=== PATIENT | female | born 1995 | race Caucasian/White ===

== ENCOUNTER 2016-11-14 16:01 | Emergency (ER) | payer BC, MEDICAID ==
[2016-11-14] MEDS ORDERED: METOCLOPRAMIDE HCL 10 MG TABLET PO ONE (16:28)
--- NOTE | 2016-11-14 16:28 | ER Document Report ---
ED Medical Screen (RME) - General Chief Complaint: Nausea/Vomiting Stated Complaint: NAUSEA AND VOMITING Time seen by provider: 16:26 Mode of Arrival: Ambulatory Information source: Patient Notes: 21 yo female presnts to ed for hyperemesis gravadarum TRAVEL OUTSIDE OF THE [place] IN LAST 30 DAYS: No - HPI Onset: Other - couple days much worse Onset/Duration: Constant Quality of pain: No pain Severity: None Pain Level: Denies Associated Symptoms: Nausea, Vomiting, Other - almost 20 weeks Exacerbated by: Food Relieved by: Denies Similar symptoms previously: Yes Recently seen / treated by doctor: Yes - Related Data Smoking: Non-smoker Frequency of alcohol use: None Drug Abuse: None Allergies/Adverse Reactions: No Known Allergies Allergy (Verified 08/26/16 08:17) Past Medical History - Social History Family history: Reviewed & Not Pertinent Pulmonary Medical History: Reports: Hx Bronchitis, Hx Pneumonia - Immunizations Hx Diphtheria, Pertussis, Tetanus Vaccination: Yes Physical Exam - Vital signs Vitals: Temp Pulse Resp BP Pulse Ox 97.9 F 98 18 119/68 99 11/14/16 16:11 11/14/16 16:11 11/14/16 16:11 11/14/16 16:11 11/14/16 16:11 Course - Vital Signs Vital signs: Temp Pulse Resp BP Pulse Ox 97.9 F 98 18 119/68 99 11/14/16 16:11 11/14/16 16:11 11/14/16 16:11 11/14/16 16:11 11/14/16 16:11
[2016-11-14 16:48] LABS: ABSOLUTE LYMPHOCYTES (AUTO) 2.3 10^3/uL (0.5-4.7); ABSOLUTE MONOCYTES (AUTO) 0.6 10^3/uL (0.1-1.4); ABSOLUTE NEUT (AUTO) 9.1 10^3/uL (1.7-8.2); BASOPHILS % (AUTO) 0.3 % (0-2); EOSINOPHILS % (AUTO) 0.2 % (0-6); HEMATOCRIT 39.2 % (36.0-47.0); HEMOGLOBIN 13.5 g/dL (12.0-15.5); HGB HCT DIFFERENCE 1.3; LYMPHOCYTES % (AUTO) 18.9 % (13-45); MEAN CORPUSCULAR HEMOGLOBIN 28.6 pg (27.0-33.4); MEAN CORPUSCULAR HGB CONC 34.3 g/dL (32.0-36.0); MEAN CORPUSCULAR VOLUME 83 fl (80-97); MONOCYTES % (AUTO) 5.2 % (3-13); RED CELL DISTRIBUTION WIDTH 13.9 % (11.5-14.0); SEGMENTED NEUTROPHILS % (AUTO) 75.4 % (42-78)
[2016-11-14 16:59] LABS: APPEARANCE,URINE CLOUDY; BILIRUBIN,URINE NEGATIVE (NEGATIVE); GLUCOSE, URINE NEGATIVE (NEGATIVE); KETONES,URINE 80 mg/dL (NEGATIVE); LEUKOCYTE ESTERASE,URINE MODERATE (NEGATIVE); NITRITE,URINE NEGATIVE (NEGATIVE); PROTEIN,URINE 30 mg/dL (NEGATIVE); URINE SPECIFIC GRAVITY 1.028; UROBILINOGEN,URINE NEGATIVE mg/dL (<2.0)
[2016-11-14 17:14] LABS: ALANINE AMINOTRANSFERASE 37 U/L (9-52); ALBUMIN 3.5 g/dL (3.5-5.0); ALKALINE PHOSPHATASE 60 U/L (38-126); ANION GAP 12 (5-19); ASPARTATE AMINO TRANSFERASE 21 U/L (14-36); BILIRUBIN,TOTAL 1.3 mg/dL (0.2-1.3); BLOOD UREA NITROGEN 8 mg/dL (7-20); CALCIUM 9.3 mg/dL (8.4-10.2); CARBON DIOXIDE 24 mmol/L (22-30); CHLORIDE 103 mmol/L (98-107); CREATININE RESULT 0.69 mg/dL (0.52-1.25); GLUCOSE 74 mg/dL (75-110); SODIUM 138.7 mmol/L (137-145); TOTAL PROTEIN 6.6 g/dL (6.3-8.2)
[2016-11-14] MEDS ORDERED: NORMAL SALINE 1000 ML 1,000 ML IV ONE (18:43)
--- NOTE | 2016-11-14 19:39 | ER Document Report ---
ED General - General Chief Complaint: Nausea/Vomiting Stated Complaint: NAUSEA AND VOMITING Mode of Arrival: Ambulatory Notes: Patient is a 21-year-old female, at 20 weeks who presented to the emergency department with concerns for dehydration in the setting of persistent vomiting. States that she's had frequent vomiting throughout her and has continued over the past several days. Notes that she's lost 6 pounds in the past one week so she was instructed to come to the emergency department by her [employer]. They she's been trying Reglan and Zofran without improvement of her nausea and vomiting. Nothing worsens or symptoms. States she has been able to tolerate fluids intermittently at home. She denies any focal abdominal pain. No diarrhea, chest pain or shortness of breath. No fever. States that the symptoms have been unchanged since approximately 12 weeks of . TRAVEL OUTSIDE OF THE [place] IN LAST 30 DAYS: No - Related Data Allergies/Adverse Reactions: No Known Allergies Allergy (Verified 08/26/16 08:17) Past Medical History - General Information source: Patient - Social History Smoking Status: Never Smoker Frequency of alcohol use: None Drug Abuse: None Lives with: Spouse/Significant other Family History: Reviewed & Not Pertinent Patient has suicidal ideation: No Patient has homicidal ideation: No Pulmonary Medical History: Reports: Hx Bronchitis, Hx Pneumonia - Immunizations Hx Diphtheria, Pertussis, Tetanus Vaccination: Yes Review of Systems - Review of Systems Notes: Constitutional: Negative for fever. HENT: Negative for sore throat. Eyes: Negative for visual changes. Cardiovascular: Negative for chest pain. Respiratory: Negative for shortness of breath. Gastrointestinal: Negative for abdominal pain, positive for vomiting Genitourinary: Negative for dysuria. Musculoskeletal: Negative for back pain. Skin: Negative for rash. Neurological: Negative for headaches, weakness or numbness. 10 point ROS negative except as marked above and in HPI. Physical Exam - Vital signs Vitals: Temp Pulse Resp BP Pulse Ox 97.9 F 98 18 119/68 99 11/14/16 16:11 11/14/16 16:11 11/14/16 16:11 11/14/16 16:11 11/14/16 16:11 Interpretation: Normal Notes: PHYSICAL EXAMINATION: GENERAL: Well-appearing, well-nourished and in no acute distress. HEAD: Atraumatic, normocephalic. EYES: Pupils equal round and reactive to light, extraocular movements intact, sclera anicteric, conjunctiva are normal. ENT: nares patent, oropharynx clear without exudates. Moist mucous membranes. NECK: Normal range of motion, supple without lymphadenopathy LUNGS: Breath sounds clear to auscultation bilaterally and equal. No wheezes rales or rhonchi. HEART: Regular rate and rhythm without murmurs ABDOMEN: Soft, gravid uterus, nontender, normoactive bowel sounds. No guarding , no rebound. No masses appreciated. EXTREMITIES: Normal range of motion, no pitting or edema. No cyanosis. NEUROLOGICAL: No focal neurological deficits. Moves all extremities spontaneously and on command. PSYCH: Normal mood, normal affect. SKIN: Warm, Dry, normal turgor, no rashes or lesions noted. Course - Re-evaluation Re-evalutation: 11/15/16 02:48 Patient presents with persistent vomiting during . Vitals at time of arrival unremarkable without tachycardia or hypotension. Laboratories reveal a normal creatinine and no evidence of significant dehydration. Patient was able to tolerate oral intake here in the emergency department. IV fluids were provided. Bedside ultrasound shows appropriate heart rate for gestational age with active movement. No vaginal bleeding or discharge. Based on abdominal exam, vitals and history I do not suspect an acute appendicitis, cholestasis of , acute cholecystitis, pancreatitis, or bowel obstruction. Patient will be started on a combination of doxylamine and vitamin B6. At this time will discharge with return precautions and follow-up recommendations. Verbal discharge instructions given a the bedside and opportunity for questions given. Medication warnings reviewed. Patient is in agreement with this plan and has verbalized understanding of return precautions and the need for primary care follow-up in the next 24-72 hours. - Vital Signs Vital signs: Temp Pulse Resp BP Pulse Ox 97.9 F 76 14 123/69 98 11/14/16 16:11 11/14/16 20:20 11/14/16 20:20 11/14/16 20:20 11/14/16 20:20 - Laboratory Result Diagrams: 11/14/16 16:25 11/14/16 16:25 Laboratory results interpreted by me: 11/14/16 11/14/16 11/14/16 16:25 16:25 16:25 WBC 12.0 H Absolute Neutrophils 9.1 H Glucose 74 L Serum HCG, Qual POSITIVE H Beta HCG, Quant Urine Protein Urine Ketones Ur Leukocyte Esterase 11/14/16 11/14/16 16:25 16:30 WBC Absolute Neutrophils Glucose Serum HCG, Qual Beta HCG, Quant 80566.00 H Urine Protein 30 H Urine Ketones 80 H Ur Leukocyte Esterase MODERATE H Discharge - Discharge Clinical Impression: Hyperemesis affecting , antepartum, Asymptomatic bacteriuria during Condition: Good Disposition: HOME, SELF-CARE Additional Instructions: You have been seen for vomiting during . You should continue to drink plenty of water and consider taking a solution such as Pedialyte if your having difficulty eating food. Please return if you become unable to drink any fluids for more than 12 hours, urinate less than twice a day, pass out, or have any other symptoms that are concerning to you. For nausea and vomiting during I recomment: Start with 10-12.5 mg of pyridoxine (vitamin B6) three times a day for 2 days. If not fully effective, Increase to 12.5 mg of pyridoxine four times a day for 2 days. If not fully effective, Increase to 25 mg of pyridoxine three times a day for 2 days. If not fully effective, Continue 25 mg pyridoxine 3 times a day, and add 12.5 mg of doxylamine before bedtime each day for 2 days. If not fully effective, Continue 25 mg pyridoxine 3 times a day, and take 12.5 mg of doxylamine twice a day. If not fully effective, Continue 25 mg pyridoxine 3 times a day, and take 12.5 mg of doxylamine three times a day. If not fully effective, Continue 25 mg pyridoxine 3 times a day, and 12.5 mg of doxylamine 3 times a day , while adding Emetrol, one to two tablespoons (15-30 cc) taken once or twice a day as needed. (Emetrol is an [id number] mixture of sugar syrups and phosphoric acid [phosphorylated carbohydrate solution]) that acts by soothing the actual wall of the gastrointestinal tract). If not fully effective, Consult with your doctor. Your urine also showed findings consistent with a urinary tract infection. Given he did not have symptoms this is categorized as asymptomatic bacteria in the urine but is treated during . You have answered on Keflex for the next 5 days. Please take as directed. Prescriptions: Cephalexin Monohydrate [Keflex 500 mg Capsule] 500 mg PO QID #20 capsule
[2016-11-14 20:22] VITALS: BP 123/69
== END 2016-11-14 20:22 | disposition home or self-care (01) ==
LOC: ER 16:01
DX: O21.0 Mild hyperemesis gravidarum (principal); O26.892 Other specified pregnancy related conditions, second trimester; R82.71 Bacteriuria; Z3A.20 20 weeks gestation of pregnancy
CPT/HCPCS: 99284; 96360; 36415; 84702; 84703; 85025; 80053; 81001; J7030

== ENCOUNTER 2017-02-06 20:41 | Outpatient (CLI) | payer BC, MEDICAID ==
[2017-02-06 21:14] LABS: APPEARANCE,URINE SLIGHTLY-CLOUDY; BILIRUBIN,URINE NEGATIVE (NEGATIVE); GLUCOSE, URINE NEGATIVE (NEGATIVE); KETONES,URINE TRACE mg/dL (NEGATIVE); LEUKOCYTE ESTERASE,URINE SMALL (NEGATIVE); NITRITE,URINE NEGATIVE (NEGATIVE); PROTEIN,URINE 30 mg/dL (NEGATIVE); URINE SPECIFIC GRAVITY 1.027; UROBILINOGEN,URINE NEGATIVE mg/dL (<2.0)
[2017-02-06 21:34] LABS: URINE BARBITURATES SCREEN NEGATIVE; URINE METHADONE SCREEN NEGATIVE; URINE OPIATES LOW NEGATIVE; URINE PHENCYCLIDINE SCREEN NEGATIVE
== END 2017-02-06 21:35 | disposition home or self-care (01) ==
LOC: LC 20:41
PROVIDERS: ATTEND Obstetrics & Gynecology
PROC: 4A1HXCZ Monitoring of Products of Conception, Cardiac Rate, External Approach (ICD-10-PCS; principal; 2017-02-06)
DX: O47.03 False labor before 37 completed weeks of gestation, third trimester (principal); Z3A.31 31 weeks gestation of pregnancy
CPT/HCPCS: 80307; 81001

== ENCOUNTER 2017-02-16 04:28 | Outpatient (CLI) | payer BC, MEDICAID ==
[2017-02-16] MEDS ORDERED: ONDANSETRON HCL INJ/PF 4 MG/2 ML SDV IV ONE (05:13)
[2017-02-16 05:16] LABS: APPEARANCE,URINE CLOUDY; BILIRUBIN,URINE NEGATIVE (NEGATIVE); GLUCOSE, URINE NEGATIVE (NEGATIVE); KETONES,URINE NEGATIVE (NEGATIVE); LEUKOCYTE ESTERASE,URINE MODERATE (NEGATIVE); NITRITE,URINE NEGATIVE (NEGATIVE); PROTEIN,URINE 30 mg/dL (NEGATIVE); URINE SPECIFIC GRAVITY 1.025; UROBILINOGEN,URINE NEGATIVE mg/dL (<2.0)
[2017-02-16] MEDS ORDERED: ONDANSETRON HCL INJ/PF 4 MG/2 ML SDV ONE (05:17)
[2017-02-16 05:41] LABS: ABSOLUTE LYMPHOCYTES (AUTO) 2.7 10^3/uL (0.5-4.7); ABSOLUTE MONOCYTES (AUTO) 0.8 10^3/uL (0.1-1.4); ABSOLUTE NEUT (AUTO) 7.6 10^3/uL (1.7-8.2); BASOPHILS % (AUTO) 0.4 % (0-2); EOSINOPHILS % (AUTO) 0.4 % (0-6); HEMATOCRIT 37.6 % (36.0-47.0); HEMOGLOBIN 12.9 g/dL (12.0-15.5); HGB HCT DIFFERENCE 1.1; MEAN CORPUSCULAR HEMOGLOBIN 29.1 pg (27.0-33.4); MEAN CORPUSCULAR HGB CONC 34.2 g/dL (32.0-36.0); MEAN CORPUSCULAR VOLUME 85 fl (80-97); MONOCYTES % (AUTO) 7.1 % (3-13); RED BLOOD COUNT 4.42 10^6/uL (3.72-5.28); RED CELL DISTRIBUTION WIDTH 13.2 % (11.5-14.0); SEGMENTED NEUTROPHILS % (AUTO) 68.1 % (42-78); WHITE BLOOD COUNT 11.1 10^3/uL (4.0-10.5)
[2017-02-16 05:41] LABS: URINE BARBITURATES SCREEN NEGATIVE; URINE METHADONE SCREEN NEGATIVE; URINE OPIATES LOW NEGATIVE; URINE PHENCYCLIDINE SCREEN NEGATIVE
[2017-02-16] MEDS ORDERED: ACETAMINOPHEN 325 MG TABLET ONE (05:43)
[2017-02-16] MEDS: RINGERS SOLUTION,LACTATED 1,000 ML IV PRN ×2 (05:46→06:38)
[2017-02-16 06:22] LABS: ALANINE AMINOTRANSFERASE 34 U/L (9-52); ALBUMIN 2.8 g/dL (3.5-5.0); ALKALINE PHOSPHATASE 131 U/L (38-126); AMYLASE 39 U/L (30-110); ANION GAP 9 (5-19); ASPARTATE AMINO TRANSFERASE 43 U/L (14-36); BILIRUBIN,DIRECT 0.3 mg/dL (0.0-0.4); BILIRUBIN,TOTAL 1.1 mg/dL (0.2-1.3); BLOOD UREA NITROGEN 7 mg/dL (7-20); CALCIUM 8.6 mg/dL (8.4-10.2); CARBON DIOXIDE 24 mmol/L (22-30); CHLORIDE 106 mmol/L (98-107); GLUCOSE 76 mg/dL (75-110); SODIUM 138.8 mmol/L (137-145); TOTAL PROTEIN 5.5 g/dL (6.3-8.2)
--- NOTE | 2017-02-16 08:26 | Non Stress Test Report ---
Non Stress Test Datetime Report Generated by CPN: 02/16/2017 08:26 DEMOGRAPHIC EGA NST: 32.5 INDICATION Indication for Study: Ordered by Provider URINE RESULTS Urine Protein, NST: Positive Urine Ketones - NST: Negative Urine Glucose - NST: Negative Urine Blood - NST: Negative MONITORING Monitor Explained: Monitor Explained; Test Explained; Patient Verbalized Understanding Time on Monitor: 02/16/2017 04:54 Time off Monitor: 02/16/2017 08:11 NST Duration: 197 NST INTERVENTIONS NST Interventions: PO Hydration Physician Notified NST: Dr. Cervantes BABY A: [id number] BABY A Movement : Present Contraction Frequency : x1 FHR Baseline : 145 Accelerations : 15X15 Decelerations : None Variability : Moderate 6-25bpm NST Review: Meets Criteria for Reactive NST NST Review and Verified By : Hedy Vaz RN NSNeris Results: Reactive NST REPORT Report Trigger: Send Report
--- NOTE | 2017-02-16 11:27 | L&D Discharge Summary ---
OB Discharge Summary Datetime Report Generated by CPN: 02/16/2017 11:27 DISCHARGE DIAGNOSIS Diagnosis/Symptoms: Other Diagnoses/Symptoms Other: Gallstones, Not in labor Gestation: 32.4 Number of Babies in Womb: 1 Parity: 0 DIET/ACTIVITY/RESTRICTIONS Diet: Regular Activity: Normal Activity TEACHING/INSTRUCTIONS/REFERRALS Instructions Given To: Patient Instructions Understood: Patient Verbalized Understanding; Support Person Verbalized Understanding Referrals: None Educational Materials- Other: Kick counts DISCHARGE INFORMATION Discharged AMA: No Discharge Date/Time: 02/16/2017 08:11 Discharged To: Home Discharge Provider Name: Dr. Cervantes Accompanied By: Spouse Discharge Method: Ambulatory Condition: Stable FOLLOW UP INFORMATION Follow Up With: [facility] Follow Up On: As Scheduled Follow Up Phone Number: [employer] [facility] - Comments: Discussed dehydration and signs and sypmtoms of when to return to office or hospital with patient and spouse. Both, patient and spouse, verbalized understanding. Patient discharged home due to false labor via ambulation in stable condition. GENERAL INSTR-CALL PROVIDER IF: Contractions: Contractions or cramps become more frequent than 8 in one hour or 4 in 20 minutes; Regular painful contractions every 5 minutes or less for one hour. Time your contractions from the beginning of one to the beginning of the next Pressure: Pressure in your vagina or lower abdomen that may feel like the baby is pushing down Period Like Cramps: Period-like cramps or low dull backache that may come and go Cramps/Diarrhea: Abdominal cramps that may be accompanied by diarrhea Gush of Fluid/Blood: Gush of fluid or blood from your vagina (it is normal to have spotting after vaginal exam or intercourse) Vaginal Discharge: Change in the type or amount of vaginal discharge Decreased Movement: Your baby is not moving as much as usual- 4 movements in 1 hour after drinking and resting on side Temperature: Temperature greater than 100.0(F) orally
== END 2017-02-16 08:27 | disposition home or self-care (01) ==
LOC: LC 04:28
PROVIDERS: ATTEND Student in an Organized Health Care Education/Training Program
PROC: 4A1HXCZ Monitoring of Products of Conception, Cardiac Rate, External Approach (ICD-10-PCS; principal; 2017-02-16)
DX: O99.613 Diseases of the digestive system complicating pregnancy, third trimester (principal); K80.80 Other cholelithiasis without obstruction; Z3A.32 32 weeks gestation of pregnancy
CPT/HCPCS: 59025; 36415; 82150; 83690; 85025; 80053; 81001; 80307; J2405

== ENCOUNTER 2017-02-17 11:39 | Outpatient (CLI) | payer BC, MEDICAID ==
[2017-02-17 14:14] LABS: ABSOLUTE LYMPHOCYTES (AUTO) 2.1 10^3/uL (0.5-4.7); ABSOLUTE MONOCYTES (AUTO) 0.7 10^3/uL (0.1-1.4); ABSOLUTE NEUT (AUTO) 5.9 10^3/uL (1.7-8.2); BASOPHILS % (AUTO) 0.3 % (0-2); EOSINOPHILS % (AUTO) 0.3 % (0-6); HEMATOCRIT 36.9 % (36.0-47.0); HEMOGLOBIN 12.6 g/dL (12.0-15.5); HGB HCT DIFFERENCE 0.9; LYMPHOCYTES % (AUTO) 24.1 % (13-45); MEAN CORPUSCULAR HEMOGLOBIN 29.2 pg (27.0-33.4); MEAN CORPUSCULAR HGB CONC 34.2 g/dL (32.0-36.0); MEAN CORPUSCULAR VOLUME 85 fl (80-97); MONOCYTES % (AUTO) 8.2 % (3-13); RED BLOOD COUNT 4.31 10^6/uL (3.72-5.28); RED CELL DISTRIBUTION WIDTH 13.2 % (11.5-14.0); SEGMENTED NEUTROPHILS % (AUTO) 67.1 % (42-78); WHITE BLOOD COUNT 8.9 10^3/uL (4.0-10.5)
[2017-02-17 14:22] LABS: APPEARANCE,URINE CLOUDY; BILIRUBIN,URINE SMALL (NEGATIVE); GLUCOSE, URINE NEGATIVE (NEGATIVE); KETONES,URINE TRACE mg/dL (NEGATIVE); LEUKOCYTE ESTERASE,URINE MODERATE (NEGATIVE); NITRITE,URINE NEGATIVE (NEGATIVE); PROTEIN,URINE 100 mg/dL (NEGATIVE); URINE SPECIFIC GRAVITY 1.033
[2017-02-17 14:22] LABS: ALANINE AMINOTRANSFERASE 26 U/L (9-52); ALBUMIN 2.8 g/dL (3.5-5.0); ALKALINE PHOSPHATASE 138 U/L (38-126); ANION GAP 9 (5-19); ASPARTATE AMINO TRANSFERASE 19 U/L (14-36); BILIRUBIN,DIRECT 0.1 mg/dL (0.0-0.4); BILIRUBIN,TOTAL 0.9 mg/dL (0.2-1.3); BLOOD UREA NITROGEN 6 mg/dL (7-20); CALCIUM 8.3 mg/dL (8.4-10.2); CARBON DIOXIDE 24 mmol/L (22-30); CHLORIDE 106 mmol/L (98-107); CREATININE RESULT 0.62 mg/dL (0.52-1.25); GLUCOSE 64 mg/dL (75-110); LDH 414 U/L (313-618); POTASSIUM 4.1 mmol/L (3.6-5.0); SODIUM 138.9 mmol/L (137-145); TOTAL PROTEIN 5.2 g/dL (6.3-8.2); URIC ACID 5.8 mg/dL (2.5-6.2)
[2017-02-17 14:35] LABS: URINE BARBITURATES SCREEN NEGATIVE; URINE METHADONE SCREEN NEGATIVE; URINE OPIATES LOW NEGATIVE; URINE PHENCYCLIDINE SCREEN NEGATIVE
--- NOTE | 2017-02-17 14:55 | Non Stress Test Report ---
Non Stress Test Datetime Report Generated by CPN: 02/17/2017 14:55 DEMOGRAPHIC EGA NST: 32.6 INDICATION Indication for Study: Ordered by Provider MONITORING Monitor Explained: Monitor Explained; Test Explained; Patient Verbalized Understanding Time on Monitor: 02/17/2017 12:45 Time off Monitor: 02/17/2017 14:30 NST Duration: 105 NST INTERVENTIONS NST Interventions: PO Hydration; Reposition Patient Physician Notified NST: H. Junior, CNM BABY A Movement : Present Contraction Frequency : 0 FHR Baseline : 145 Accelerations : 15X15 Decelerations : None Variability : Moderate 6-25bpm NST Review: Meets Criteria for Reactive NST NST Review and Verified By : SCOTT OLIVEIRA RN NST Results: Reactive NST REPORT Report Trigger: Send Report
--- NOTE | 2017-02-17 17:59 | L&D Discharge Summary ---
OB Discharge Summary Datetime Report Generated by CPN: 02/17/2017 17:59 DISCHARGE DIAGNOSIS Diagnosis/Symptoms: Reassuring Surveillance - Annotate Details; Pre-Eclampsia Diagnoses/Symptoms Other: Not in Labor - pre-eclamptic labs WNL Gestation: 32.5 Number of Babies in Womb: 1 Parity: 0 DIET/ACTIVITY/RESTRICTIONS Diet: Regular Activity: Normal Activity TEACHING/INSTRUCTIONS/REFERRALS Instructions Given To: Pt Instructions Understood: Patient Verbalized Understanding Referrals: None Educational Materials- Other: Dehydration in DISCHARGE INFORMATION Discharged AMA: No Discharge Date/Time: 02/17/2017 14:55 Discharged To: Home Discharge Provider Name: Hedy Pacheco CNM Accompanied By: Self Discharge Method: Ambulatory Condition: Stable FOLLOW UP INFORMATION Follow Up With: [facility] Follow Up On: As Scheduled Follow Up Phone Number: [facility] - Comments: Pt encouraged to eat small meals throughout the day when feeling better and to increase her fluid intake. GENERAL INSTR-CALL PROVIDER IF: Contractions: Contractions or cramps become more frequent than 8 in one hour or 4 in 20 minutes; Regular painful contractions every 5 minutes or less for one hour. Time your contractions from the beginning of one to the beginning of the next Pressure: Pressure in your vagina or lower abdomen that may feel like the baby is pushing down Period Like Cramps: Period-like cramps or low dull backache that may come and go Cramps/Diarrhea: Abdominal cramps that may be accompanied by diarrhea Gush of Fluid/Blood: Gush of fluid or blood from your vagina (it is normal to have spotting after vaginal exam or intercourse) Vaginal Discharge: Change in the type or amount of vaginal discharge Decreased Movement: Your baby is not moving as much as usual- 4 movements in 1 hour after drinking and resting on side Temperature: Temperature greater than 100.0(F) orally
--- NOTE | 2017-02-19 22:47 | Antepartum Discharge Summary ---
Antepartum DC Datetime Report Generated by CPN: 02/19/2017 22:45 Diet: Regular (02/17/2017 14:54:Martha Ramos RN) Activity: Normal Activity (02/17/2017 14:54:Martha Ramos RN) Instructions Given To: Pt (02/17/2017 14:54:Martha Ramos RN) Instructions Understood: Patient Verbalized Understanding (02/17/2017 14:54:Martha Ramos RN) Referrals: None (02/17/2017 14:54:Martha Ramos RN) Educational Materials- Other: Dehydration in (02/17/2017 14:54:Martha Ramos RN) Discharged AMA: No (02/17/2017 14:54:Martha Ramos RN) Discharge Date/Time: 02/17/2017 14:55 (02/17/2017 14:54:Martha Ramos RN) Discharged To: Home (02/17/2017 14:54:Martha Ramos RN) Discharge Provider Name: Hedy Pacheco CNM (02/17/2017 14:54:Martha Ramos RN) Accompanied By: Self (02/17/2017 14:54:Martha Ramos RN) Discharge Method: Ambulatory (02/17/2017 14:54:Martha Ramos RN) Condition: Stable (02/17/2017 14:54:Martha Ramos RN) Follow Up With: [facility] (02/17/2017 14:54:Martha Ramos RN) Follow Up On: As Scheduled (02/17/2017 14:54:Martha Ramos RN) Follow Up Phone Number: [facility] - (02/17/2017 14:54:Martha Ramos RN) Comments: Pt encouraged to eat small meals throughout the day when feeling better and to increase her fluid intake. (02/17/2017 14:54:Martha Ramos RN) Pressure: Pressure in your vagina or lower abdomen that may feel like the baby is pushing down (02/17/2017 14:54:Martha Ramos RN) Period Like Cramps: Period-like cramps or low dull backache that may come and go (02/17/2017 14:54:Martha Ramos RN) Cramps/Diarrhea: Abdominal cramps that may be accompanied by diarrhea (02/17/2017 14:54:Martha Ramos RN) Gush of Fluid/Blood: Gush of fluid or blood from your vagina (it is normal to have spotting after vaginal exam or intercourse) (02/17/2017 14:54:Martha Ramos RN) Vaginal Discharge: Change in the type or amount of vaginal discharge (02/17/2017 14:54:Martha Ramos RN) Decreased Movement: Your baby is not moving as much as usual- 4 movements in 1 hour after drinking and resting on side (02/17/2017 14:54:Martha Ramos RN) Temperature: Temperature greater than 100.0(F) orally (02/17/2017 14:54:Martha Ramos RN) Hypertension Signs/Symptoms: Severe headache which is not relieved 30 minutes after taking Tylenol(Acetaminophen); Blurry vision or spots before your eyes; Severe heartburn or pain on the upper right side of your abdomen that is not relieved by an antacid; Increased swelling in your face, hands or feet (02/17/2017 14:54:Martha Ramos RN) Urinary Output: Decreased urinary output or dark colored urine (02/17/2017 14:54:Martha Ramos RN)
--- NOTE | 2017-02-19 22:47 | L&D Discharge Summary ---
OB Discharge Summary Datetime Report Generated by CPN: 02/19/2017 22:45 DISCHARGE DIAGNOSIS Diagnosis/Symptoms: Reassuring Surveillance - Annotate Details; Pre-Eclampsia Diagnoses/Symptoms Other: Not in Labor - pre-eclamptic labs WNL Gestation: 32.6 Number of Babies in Womb: 1 Parity: 0 DIET/ACTIVITY/RESTRICTIONS Diet: Regular Activity: Normal Activity TEACHING/INSTRUCTIONS/REFERRALS Instructions Given To: Pt Instructions Understood: Patient Verbalized Understanding Referrals: None Educational Materials- Other: Dehydration in DISCHARGE INFORMATION Discharged AMA: No Discharge Date/Time: 02/17/2017 14:55 Discharged To: Home Discharge Provider Name: Hedy Pacheco CNM Accompanied By: Self Discharge Method: Ambulatory Condition: Stable FOLLOW UP INFORMATION Follow Up With: [facility] Follow Up On: As Scheduled Follow Up Phone Number: [facility] - Comments: Pt encouraged to eat small meals throughout the day when feeling better and to increase her fluid intake. GENERAL INSTR-CALL PROVIDER IF: Contractions: Contractions or cramps become more frequent than 8 in one hour or 4 in 20 minutes; Regular painful contractions every 5 minutes or less for one hour. Time your contractions from the beginning of one to the beginning of the next Pressure: Pressure in your vagina or lower abdomen that may feel like the baby is pushing down Period Like Cramps: Period-like cramps or low dull backache that may come and go Cramps/Diarrhea: Abdominal cramps that may be accompanied by diarrhea Gush of Fluid/Blood: Gush of fluid or blood from your vagina (it is normal to have spotting after vaginal exam or intercourse) Vaginal Discharge: Change in the type or amount of vaginal discharge Decreased Movement: Your baby is not moving as much as usual- 4 movements in 1 hour after drinking and resting on side Temperature: Temperature greater than 100.0(F) orally
--- NOTE | 2017-02-19 22:47 | L&D Current Admission ---
Current Admit Datetime Report Generated by CPN: 02/19/2017 22:45 ADMISSION INFORMATION Chief Complaint: Pt sent for pre-eclamptic w/u (02/17/2017 12:52:Martha Ramos RN) Chief Complaint: Epigastric Pain; Nausea; Vomiting; Other (Annotations: Gallbladder pain, heartburn) (02/16/2017 04:55:Jennifer Dolan RN) Chief Complaint: back and abdominal pain swelling (02/06/2017 21:01:Dionne Orr)
--- NOTE | 2017-02-19 22:47 | L&D General Admission ---
General Admit Datetime Report Generated by CPN: 02/19/2017 22:45 INFORMATION Patient Age: 21 (08/28/2016 17:37:QS system process) EDC: 04/08/2017 00:00 (02/06/2017 20:46:Crystal Mani, RN) : 1 (02/06/2017 20:46:Crystal Mani, RN) Para: 0 (02/06/2017 20:46:Crystal Mani, RN) Baby, Number in Womb: 1 (02/06/2017 20:46:Pearl Irizarry RN) CARE Primary Cuff Presser: [facility] (02/06/2017 20:46:Sharri Singleton RN) Adequate Care: Yes (02/06/2017 20:46:Sharri Singleton RN) Prepregnancy Weight (lb): 280 (02/06/2017 20:46:Martha Ramos RN) Prepregnancy Weight (kg): 127.3 (02/06/2017 20:46:QS system process) Height (in): 70 (02/06/2017 20:53:QS system process) Height (in): 71 (08/31/2016 05:53:QS system process) Height (in): 71 (08/30/2016 07:39:QS system process) Height (in): 71 (08/29/2016 10:52:QS system process) Height (in): 71 (08/29/2016 07:48:QS system process) Height (in): 71 (08/28/2016 18:04:QS system process) ALLERGIES Medication Allergy: No (02/06/2017 20:46:Sharri Singleton RN) Medication Allergies: No Known Allergies (02/16/2017) (02/16/2017 06:01:QS system process) Medication Allergies: No Known Allergies (08/26/2016) (08/28/2016 17:37:QS system process) Latex Allergy: No Latex Allergies (02/06/2017 20:46:Dionne Orr) Food Allergies: none (02/06/2017 20:46:Dionne Orr) Environmental Allergies: none (02/06/2017 20:46:Dionne Orr) COMMUNICATION Primary Language: Polish (02/06/2017 20:46:Crystal Whittemore, RN) DEMOGRAPHICS Address: [address] [place] [id number] (08/28/2016 17:37:QS system process) Zipcode: [address] (08/28/2016 17:37:QS system process) Home (08/28/2016 17:37:QS system process) Work (02/06/2017 20:42:QS system process) Work (08/28/2016 17:37:QS system process) SSN: [id number] (08/28/2016 17:37:QS system process) Next of Kin Name: KAREN GARVIN (08/28/2016 17:37:QS system process) Next of Kin (08/28/2016 17:37:QS system process) Next of Kin Relationship: MO (08/28/2016 17:37:QS system process) Date of : 1995 (08/28/2016 17:37:QS system process) Marital Status: (08/28/2016 17:37:QS system process) Sex: Female (08/28/2016 17:37:QS system process) Race: (08/28/2016 17:37:QS system process) Ethnicity: Non- or (08/28/2016 17:37:QS system process) Latter-Day: Zoroastrian (08/28/2016 17:37:QS system process) DRUG AND ALCOHOL USE Alcohol: No (02/06/2017 20:46:Dionne Orr) Cigarettes: Never Smoker. [id number] (02/06/2017 20:46:Dionne Orr) Marijuana: No (02/06/2017 20:46:Jennifer Dolan RN) Cocaine: No (02/06/2017 20:46:Dionne Orr) Other Illicit Drugs: No (02/06/2017 20:46:Dionne Orr) VACCINE HISTORY Influenza Vaccine: Yes (02/06/2017 20:46:Dionne Orr) Influenza Date: 2015 (02/06/2017 20:46:Dionne Orr) Tdap Vaccine: Yes (02/06/2017 20:46:Dionne Orr) Tdap Date: 2015 (02/06/2017 20:46:Dionne Orr) Feeding Preference: Breast (02/06/2017 20:46:Dionne Orr) Tubal Ligation: No (02/06/2017 20:46:Dionne Orr) Tubal Authorization Signed: N/A (02/06/2017 20:46:Dionne Orr) Consent: N/A (02/06/2017 20:46:Dionne Orr) Consent Signed: N/A (02/06/2017 20:46:Dionne Orr) Pain Management Plans: Natural; Epidural (02/06/2017 20:46:Dionne Orr) Plans for Labor and Delivery: None (02/06/2017 20:46:Dionne Orr) Support Person: Babak (02/06/2017 20:46:Dionne Orr) Support Person Relationship: (02/06/2017 20:46:Dionne Orr) Cultural/Spritual Practice: No (02/06/2017 20:46:Dionne Orr) Spir/Cult Dietary Needs: No (02/06/2017 20:46:Dionne Orr) LIVING SITUATION/DISCHARGE PLAN Living Arrangements: House (02/06/2017 20:46:Dionne Orr) Adequate Access to:: Electric; Heat; Refrigeration; Plumbing/Running water; Phone; Transportation (02/06/2017 20:46:Dionne Orr) WIC Program: No (02/06/2017 20:46:Dionne Orr) Discharge Portfolio Consultant Person: hugh (02/06/2017 20:46:Dionne Orr) Person to Help after Discharge: hugh (02/06/2017 20:46:Dionne Orr) Currently Using Commun Resources: Yes (02/06/2017 20:46:Dionne Orr) Specify Current Resource Used: medicaid (02/06/2017 20:46:Dionne Orr) Car Seat for Discharge: Yes (02/06/2017 20:46:Dionne Orr) Adoption Requested: No (02/06/2017 20:46:Dionne Orr) Pt Contact w/infant Post : N/A (02/06/2017 20:46:Dionne Orr) LABS Blood Type: O Positive (02/06/2017 20:46:Sharri Singleton RN) Antibody Screen: Negative (02/06/2017 20:46:Sharri Singleton RN) Hemoglobin: 12.6 (02/17/2017 13:28:QS system process) Hemoglobin: 12.9 (02/16/2017 05:22:QS system process) Hemoglobin: 13.8 (01/21/2017 23:35:QS system process) Hemoglobin: 13.5 (11/14/2016 16:25:QS system process) Hemoglobin: 13.2 (10/07/2016 20:25:QS system process) Hemoglobin: 13.3 (08/28/2016 18:40:QS system process) Hematocrit: 36.9 (02/17/2017 13:28:QS system process) Hematocrit: 37.6 (02/16/2017 05:22:QS system process) Hematocrit: 40.9 (01/21/2017 23:35:QS system process) Hematocrit: 39.2 (11/14/2016 16:25:QS system process) Hematocrit: 38.0 (10/07/2016 20:25:QS system process) Hematocrit: 38.1 (08/28/2016 18:40:QS system process) MCV: 85 (02/17/2017 13:28:QS system process) MCV: 85 (02/16/2017 05:22:QS system process) MCV: 85 (01/21/2017 23:35:QS system process) MCV: 83 (11/14/2016 16:25:QS system process) MCV: 83 (10/07/2016 20:25:QS system process) MCV: 82 (08/28/2016 18:40:QS system process) Gonorrhea: Negative (02/06/2017 20:46:Sharri Singleton RN) Chlamydia: Negative (02/06/2017 20:46:Sharri Singleton RN) RPR/VDRL: Nonreactive (02/06/2017 20:46:Sharri Singleton RN) HIV Exposure Test: Negative (02/06/2017 20:46:Sharri Singleton RN) Hepatitis B: Negative (02/06/2017 20:46:Sharri Singleton RN) Rubella: Non-Immune (02/06/2017 20:46:Melinda Corona RN) OB/PREVIOUS HISTORY Current Procedures: Ultrasound (02/06/2017 20:46:Dionne Orr) History of Previous : No (02/06/2017 20:46:Dionne Orr) History of Gestational Diabetes: No (02/06/2017 20:46:Dionne Orr) History of PIH: No (02/06/2017 20:46:Dionne Orr) History of Incompetent Cervix: No (02/06/2017 20:46:Dionne Orr) History of Placenta Previa/Abrup: No (02/06/2017 20:46:Dionne Orr) History of Macrosomia: No (02/06/2017 20:46:Dionne Orr) History of IUGR: No (02/06/2017 20:46:Dionne Orr) History of Hemorrhage: No (02/06/2017 20:46:Dionne Orr) History of Loss/Stillborn: No (02/06/2017 20:46:Dionne Orr) History of : No (02/06/2017 20:46:Dionne Orr) History of D (Rh) Sensitization: No (02/06/2017 20:46:Dionne Orr) History Recurrent Loss/Stillborn: No (02/06/2017 20:46:Dionne Orr) History Depression/PP Depression: No (02/06/2017 20:46:Dionne Orr) History of Uterine Anomaly/ERNESTINE: No (02/06/2017 20:46:Dionne Orr) History of Infertility: No (02/06/2017 20:46:Dionne Orr) History of ART Treatment: No (02/06/2017 20:46:Dionne Orr) History of ERNESTINE: No (02/06/2017 20:46:Dionne Orr) Comments Obstetrical History: 2017 current (hyper emesis, gallbladder issues) (02/06/2017 20:46:Jennifer Dolan RN) MEDICAL HISTORY Med Hx Diabetes: No (02/06/2017 20:46:Dionne Orr) Med Hx Hypertension: No (02/06/2017 20:46:Dionne Orr) Med Hx Heart Disease: No (02/06/2017 20:46:Dionne Orr) Med Hx Autoimmune Disorder: No (02/06/2017 20:46:Dionne Orr) Med Hx Kidney Disease/UTI: No (02/06/2017 20:46:Dionne Orr) Med Hx Neurologic/Epilepsy: No (02/06/2017 20:46:Dionne Orr) Med Hx Psychiatric Disorders: No (02/06/2017 20:46:Dionne Orr) Med Hx Hepatitis/Liver Disease: No (02/06/2017 20:46:Dionne Orr) Med Hx Varicosities/Phlebitis: No (02/06/2017 20:46:Dionne Orr) Med Hx Thyroid Dysfunction: No (02/06/2017 20:46:Dionne Orr) Med Hx Trauma/Violence: No (02/06/2017 20:46:Dionne Orr) Med Hx Blood Transfusion: No (02/06/2017 20:46:Dionne Orr) Med Hx Pulmonary (Asthma,TB): No (02/06/2017 20:46:Dionne Orr) Med Hx Breast: No (02/06/2017 20:46:Dionne Orr) Med Hx CUTTER GRINDER Surgery: No (02/06/2017 20:46:Dionne Orr) Med Hx Hospitalization/Surgery: No (02/06/2017 20:46:Dionne Orr) Med Hx Anesthetic Complications: No (02/06/2017 20:46:Dionne Orr) Med Hx Abnormal Pap Smear: No (02/06/2017 20:46:Dionne Orr) Other Medical Diseases: No (02/06/2017 20:46:Dionne Orr) Med Hx Significant Family Hx: No (02/06/2017 20:46:Dionne Orr) INFECTIOUS HISTORY Inf Hx Gonorrhea: No (02/06/2017 20:46:Dionne Orr) Inf Hx Chlamydia: No (02/06/2017 20:46:Dionne Orr) Inf Hx Syphilis: No (02/06/2017 20:46:Dionne Orr) Inf Hx HIV/AIDS: No (02/06/2017 20:46:Dionne Orr) Inf Hx Human Papilloma Virus: No (02/06/2017 20:46:Dionne Orr) Inf Hx Pt/Partner Genital Herpes: No (02/06/2017 20:46:Dionne Orr) Inf Hx Tuberculosis/Exposure: No (02/06/2017 20:46:Dionne Orr) Inf Hx Hepatitis B,C: No (02/06/2017 20:46:Dionne Orr) Inf Hx Rash or Viral Illness: No (02/06/2017 20:46:Dionne Orr) GENETIC HISTORY Gen Hx Age >=35 at CORY: No (02/06/2017 20:46:Dionne Orr) Gen Hx Thalassemia: No (02/06/2017 20:46:Dionne Orr) Gen Hx Congenital Heart Defect: No (02/06/2017 20:46:Dionne Orr) Gen Hx Neural Tube Defect: No (02/06/2017 20:46:Dionne Orr) Gen Hx Down's Syndrome: No (02/06/2017 20:46:Dionne Orr) Gen Hx Kris-Sachs: No (02/06/2017 20:46:Dionne Orr) Gen Hx Lilly: No (02/06/2017 20:46:Dionne Orr) Gen Hx Familial Dysautonomia: No (02/06/2017 20:46:Dionne Orr) Gen Hx Sickle Cell Disease/Trait: No (02/06/2017 20:46:Dionne Orr) Gen Hx Hemophilia/Blood Disorder: No (02/06/2017 20:46:Dionne Orr) Gen Hx Muscular Dystrophy: No (02/06/2017 20:46:Dionne Orr) Gen Hx Cystic Fibrosis: No (02/06/2017 20:46:Dionne Orr) Gen Hx Huntingtons Chorea: No (02/06/2017 20:46:Dionne Orr) Gen Hx Mental Retardation/Autism: No (02/06/2017 20:46:Dionne Orr) Gen Hx Tested for Fragile X: No (02/06/2017 20:46:Dionne Orr) Gen Hx Other Inher/Chromosomal: No (02/06/2017 20:46:Dionne Orr) Gen Hx Maternal Metabolic DO: No (02/06/2017 20:46:Dionne Orr) Gen Hx Pt Father or FOB Defect: No (02/06/2017 20:46:Dionne Orr) Gen Hx Other Genetic History: No (02/06/2017 20:46:Dionne Orr) Gen Hx Drugs/Meds since LMP: Yes (02/06/2017 20:46:Jennifer Dolan RN) Gen Hx Medications: vitamins, diclegis, (02/06/2017 20:46:Jennifer Dolan RN)
--- NOTE | 2017-02-20 06:30 | Non Stress Test Report ---
Non Stress Test Datetime Report Generated by CPN: 02/20/2017 06:30 DEMOGRAPHIC Test Number: 3 EGA NST: 33.2 INDICATION Indication for Study: Ordered by Provider MONITORING Monitor Explained: Monitor Explained; Test Explained; Patient Verbalized Understanding Time on Monitor: 02/20/2017 03:58 Time off Monitor: 02/20/2017 05:11 NST Duration: 73 NST INTERVENTIONS NST Interventions: PO Hydration; Reposition Patient Physician Notified NST: Dr. Phill BABY A Movement : Present Contraction Frequency : occasional FHR Baseline : 145 Accelerations : 15X15 Variability : Moderate 6-25bpm NST Review: Meets Criteria for Reactive NST NST Review and Verified By : JOE Lyons NST Results: Reactive NST REPORT Report Trigger: Send Report
== END 2017-02-17 14:59 | disposition home or self-care (01) ==
LOC: LC 11:39
PROVIDERS: ATTEND Obstetrics & Gynecology
PROC: 4A1HXCZ Monitoring of Products of Conception, Cardiac Rate, External Approach (ICD-10-PCS; principal; 2017-02-17)
DX: Z34.93 Encounter for supervision of normal pregnancy, unspecified, third trimester (principal); Z36 Encounter for antenatal screening of mother; Z3A.33 33 weeks gestation of pregnancy
CPT/HCPCS: 36415; 59025; 80053; 80307; 81001; 83615; 84550; 85025

== ENCOUNTER 2017-02-20 06:41 | Outpatient (CLI) | payer BC, MEDICAID ==
--- NOTE | 2017-02-20 08:44 | L&D Discharge Summary ---
OB Discharge Summary Datetime Report Generated by CPN: 02/20/2017 08:44 DISCHARGE DIAGNOSIS Diagnosis/Symptoms: False Labor Diagnoses/Symptoms Other: Not in Labor - pre-eclamptic labs WNL Gestation: 32.6 Number of Babies in Womb: 1 Parity: 0 DIET/ACTIVITY/RESTRICTIONS Diet: Regular Diet Restrictions: No intercourse until after f/u with [facility] Activity: Normal Activity Activity Restrictions: No Sexual Activity TEACHING/INSTRUCTIONS/REFERRALS Instructions Given To: Patient Instructions Understood: Patient Verbalized Understanding Referrals: None Educational Materials- Other: Kick counts and PTL signs care notes given. DISCHARGE INFORMATION Discharged AMA: No Discharge Date/Time: 02/20/2017 06:23 Discharged To: Home Discharge Provider Name: Dr. Pollock Accompanied By: FOB Discharge Method: Wheelchair Condition: Stable FOLLOW UP INFORMATION Follow Up With: [facility] Follow Up On: 1 Week Follow Up Phone Number: [facility] - Comments: Pt encouraged to eat small meals throughout the day when feeling better and to increase her fluid intake. GENERAL INSTR-CALL PROVIDER IF: Contractions: Contractions or cramps become more frequent than 8 in one hour or 4 in 20 minutes; Regular painful contractions every 5 minutes or less for one hour. Time your contractions from the beginning of one to the beginning of the next Pressure: Pressure in your vagina or lower abdomen that may feel like the baby is pushing down Period Like Cramps: Period-like cramps or low dull backache that may come and go Cramps/Diarrhea: Abdominal cramps that may be accompanied by diarrhea Gush of Fluid/Blood: Gush of fluid or blood from your vagina (it is normal to have spotting after vaginal exam or intercourse) Vaginal Discharge: Change in the type or amount of vaginal discharge Decreased Movement: Your baby is not moving as much as usual- 4 movements in 1 hour after drinking and resting on side Temperature: Temperature greater than 100.0(F) orally
--- NOTE | 2017-02-20 10:46 | L&D Admission Assessment ---
LD ADM ASMT Datetime Report Generated by CPN: 02/20/2017 10:45 Assessment Type: Triage (02/20/2017 03:59:Agnieszka Treadwell RN) Weight (lb): 255 (02/20/2017 06:41:QS system process) Weight (kg): 115.9 (02/20/2017 06:41:QS system process) Total Wt Gain (lb): -25 (02/20/2017 06:41:QS system process) Wt Gain (kg): -11.3 (02/20/2017 06:41:QS system process) BMI: 36.6 (02/20/2017 06:41:QS system process) Frequency (min): x1 (02/20/2017 05:11:Agnieszka Treadwell RN) Frequency (min): x3 (02/20/2017 05:00:Agnieszka Treadwell RN) Frequency (min): x3 (02/20/2017 04:30:Agnieszka Treadwell RN) Duration (sec): 70 (02/20/2017 05:11:Agnieszka Beyertibglory RN) Duration (sec): 30-60 (02/20/2017 05:00:Agnieszka Treadwell RN) Duration (sec): 40-50 (02/20/2017 04:30:Agnieszka Treadwell RN) Quality: Mild (02/20/2017 05:11:Agnieszka Treadwell RN) Quality: Mild (02/20/2017 05:00:Agnieszka Treadwell RN) Quality: Mild (02/20/2017 04:30:Agnieszka Treadwell RN) Resting Tone [place]: Relaxed (02/20/2017 05:11:Agnieszka Treadwell RN) Resting Tone [place]: Relaxed (02/20/2017 05:00:Agnieszka Treadwell RN) Resting Tone [place]: Relaxed (02/20/2017 04:30:Agnieszka Treadwell RN) Level of Consciousness: Fully Conscious (02/20/2017 03:59:Agnieszka Treadwell RN) Headache: Denies (02/20/2017 03:59:Agnieszka Treadwell RN) Dizziness: No (02/20/2017 03:59:Agnieszka Treadwell RN) Blurred Vision: No (02/20/2017 03:59:Agnieszka Treadwell RN) Extremity Numbness/Tingling : None (02/20/2017 03:59:Agnieszka Treadwell RN) Extremity Movement: Full Range of Motion (02/20/2017 03:59:Agnieszka Treadwell RN) Heart Rhythm: Regular (02/20/2017 03:59:Agnieszka Treadwell RN) Nailbeds: [place] (02/20/2017 03:59:Agnieszka Treadwell RN) Capillary Refill: Less than 3 Seconds (02/20/2017 03:59:Agnieszka Treadwell RN) FHR Baseline Rate (bpm) Baby A: 145 (02/20/2017 05:11:Agnieszka Treadwell RN) FHR Baseline Rate (bpm) Baby A: 145 (02/20/2017 05:00:Agnieszka Treadwell RN) FHR Baseline Rate (bpm) Baby A: 145 (02/20/2017 04:30:Agnieszka Treadwell RN) Variability Baby A: Moderate 6-25 bpm (02/20/2017 05:11:Agnieszka Treadwell RN) Variability Baby A: Moderate 6-25 bpm (02/20/2017 05:00:Agnieszka Treadwell RN) Variability Baby A: Moderate 6-25 bpm (02/20/2017 04:30:Agnieszka Treadwell RN) Accelerations Baby A: 15X15 (02/20/2017 05:11:Agnieszka Treadwell RN) Accelerations Baby A: 15X15 (02/20/2017 05:00:Agnieszka Treadwell RN) Accelerations Baby A: 15X15 (02/20/2017 04:30:Agnieszka Treadwell RN) Decelerations Baby A: None (02/20/2017 05:11:Agnieszka Treadwell RN)
--- NOTE | 2017-02-20 10:46 | Antepartum Discharge Summary ---
Antepartum DC Datetime Report Generated by CPN: 02/20/2017 10:45 Diet: Regular (02/20/2017 06:15:Agnieszka Treadwell RN) Diet: Regular (02/17/2017 14:54:Martha Ramos RN) Diet Restrictions: No intercourse until after f/u with [facility] (02/20/2017 06:15:Agnieszka Treadwell RN) Activity: Normal Activity (02/20/2017 06:15:Agnieszka Treadwell RN) Activity: Normal Activity (02/17/2017 14:54:Martha Ramos RN) Activity Restrictions: No Sexual Activity (02/20/2017 06:15:Agnieszka Treadwell RN) Instructions Given To: Patient (02/20/2017 06:15:Agnieszka Treadwell RN) Instructions Given To: Pt (02/17/2017 14:54:Martha Ramos RN) Instructions Understood: Patient Verbalized Understanding (02/20/2017 06:15:Agnieszka Treadwell RN) Instructions Understood: Patient Verbalized Understanding (02/17/2017 14:54:Martha Ramos RN) Referrals: None (02/20/2017 06:15:Agnieszka Treadwell RN) Referrals: None (02/17/2017 14:54:Martha Ramos RN) Educational Materials- Other: Kick counts and PTL signs care notes given. (02/20/2017 06:15:Agnieszka Treadwell RN) Educational Materials- Other: Dehydration in (02/17/2017 14:54:Martha Ramos RN) Discharged AMA: No (02/20/2017 06:15:Agnieszka Treadwell RN) Discharged AMA: No (02/17/2017 14:54:Martha Ramos RN) Discharge Date/Time: 02/20/2017 06:23 (02/20/2017 06:15:Agnieszka Treadwell RN) Discharge Date/Time: 02/17/2017 14:55 (02/17/2017 14:54:Martha Ramos RN) Discharged To: Home (02/20/2017 06:15:Agnieszka Treadwell RN) Discharged To: Home (02/17/2017 14:54:Martha Ramos RN) Discharge Provider Name: Dr. Pollock (02/20/2017 06:15:Agnieszka Treadwell RN) Discharge Provider Name: Hedy Pacheco CNM (02/17/2017 14:54:Martha Ramos RN) Accompanied By: FOB (02/20/2017 06:15:Agnieszka Treadwell RN) Accompanied By: Self (02/17/2017 14:54:Martha Ramos RN) Discharge Method: Wheelchair (02/20/2017 06:15:Agnieszka Treadwell RN) Discharge Method: Ambulatory (02/17/2017 14:54:Martha Ramos RN) Condition: Stable (02/20/2017 06:15:Agnieszka Treadwell RN) Condition: Stable (02/17/2017 14:54:Martha Ramos RN) Follow Up With: [facility] (02/20/2017 06:15:Agnieszka Treadwell RN) Follow Up With: [facility] (02/17/2017 14:54:Martha Ramos RN) Follow Up On: 1 Week (02/20/2017 06:15:Agnieszka Treadwell RN) Follow Up On: As Scheduled (02/17/2017 14:54:Martha Ramos RN) Follow Up Phone Number: [facility] - (02/20/2017 06:15:Agnieszka Treadwell RN) Follow Up Phone Number: [facility] - (02/17/2017 14:54:Martha Ramos RN) Comments: Pt encouraged to eat small meals throughout the day when feeling better and to increase her fluid intake. (02/17/2017 14:54:Martha Ramos RN) Pressure: Pressure in your vagina or lower abdomen that may feel like the baby is pushing down (02/17/2017 14:54:Martha Ramos RN) Period Like Cramps: Period-like cramps or low dull backache that may come and go (02/17/2017 14:54:Martha Ramos RN) Cramps/Diarrhea: Abdominal cramps that may be accompanied by diarrhea (02/17/2017 14:54:Martha Ramos RN) Gush of Fluid/Blood: Gush of fluid or blood from your vagina (it is normal to have spotting after vaginal exam or intercourse) (02/17/2017 14:54:Martha Ramos RN) Vaginal Discharge: Change in the type or amount of vaginal discharge (02/17/2017 14:54:Martha Ramos RN) Decreased Movement: Your baby is not moving as much as usual- 4 movements in 1 hour after drinking and resting on side (02/17/2017 14:54:Martha Ramos RN) Temperature: Temperature greater than 100.0(F) orally (02/17/2017 14:54:Martha Ramos RN) Hypertension Signs/Symptoms: Severe headache which is not relieved 30 minutes after taking Tylenol(Acetaminophen); Blurry vision or spots before your eyes; Severe heartburn or pain on the upper right side of your abdomen that is not relieved by an antacid; Increased swelling in your face, hands or feet (02/17/2017 14:54:Martha Ramos RN) Urinary Output: Decreased urinary output or dark colored urine (02/17/2017 14:54:Martha Ramos RN)
--- NOTE | 2017-02-20 10:46 | L&D Discharge Summary ---
OB Discharge Summary Datetime Report Generated by CPN: 02/20/2017 10:45 DISCHARGE DIAGNOSIS Diagnosis/Symptoms: False Labor Diagnoses/Symptoms Other: Not in Labor - pre-eclamptic labs WNL Gestation: 32.6 Number of Babies in Womb: 1 Parity: 0 DIET/ACTIVITY/RESTRICTIONS Diet: Regular Diet Restrictions: No intercourse until after f/u with [facility] Activity: Normal Activity Activity Restrictions: No Sexual Activity TEACHING/INSTRUCTIONS/REFERRALS Instructions Given To: Patient Instructions Understood: Patient Verbalized Understanding Referrals: None Educational Materials- Other: Kick counts and PTL signs care notes given. DISCHARGE INFORMATION Discharged AMA: No Discharge Date/Time: 02/20/2017 06:23 Discharged To: Home Discharge Provider Name: Dr. Pollock Accompanied By: FOB Discharge Method: Wheelchair Condition: Stable FOLLOW UP INFORMATION Follow Up With: [facility] Follow Up On: 1 Week Follow Up Phone Number: [facility] - Comments: Pt encouraged to eat small meals throughout the day when feeling better and to increase her fluid intake. GENERAL INSTR-CALL PROVIDER IF: Contractions: Contractions or cramps become more frequent than 8 in one hour or 4 in 20 minutes; Regular painful contractions every 5 minutes or less for one hour. Time your contractions from the beginning of one to the beginning of the next Pressure: Pressure in your vagina or lower abdomen that may feel like the baby is pushing down Period Like Cramps: Period-like cramps or low dull backache that may come and go Cramps/Diarrhea: Abdominal cramps that may be accompanied by diarrhea Gush of Fluid/Blood: Gush of fluid or blood from your vagina (it is normal to have spotting after vaginal exam or intercourse) Vaginal Discharge: Change in the type or amount of vaginal discharge Decreased Movement: Your baby is not moving as much as usual- 4 movements in 1 hour after drinking and resting on side Temperature: Temperature greater than 100.0(F) orally
--- NOTE | 2017-02-20 10:46 | L&D General Admission ---
General Admit Datetime Report Generated by CPN: 02/20/2017 10:45 INFORMATION Patient Age: 21 (08/28/2016 17:37:QS system process) EDC: 04/08/2017 00:00 (02/06/2017 20:46:Sharri Singleton RN) : 1 (02/06/2017 20:46:Sharri Singleton RN) Para: 0 (02/06/2017 20:46:Sharri Singleton RN) Term: 0 (02/06/2017 20:46:Agnieszka Treadwell RN) : 0 (02/06/2017 20:46:Agnieszka Treadwell RN) Spontaneous Abortions: 0 (02/06/2017 20:46:Agnieszka Treadwell RN) Induced Abortions: 0 (02/06/2017 20:46:Agnieszka Treadwell RN) Livin (02/06/2017 20:46:Agnieszka Treadwell RN) Cesareans: 0 (02/06/2017 20:46:Agnieszka Treadwell RN) VBACs: 0 (02/06/2017 20:46:Agnieszka Treadwell RN) Ectopic: 0 (02/06/2017 20:46:Agnieszka Treadwell RN) Multiple Births: 0 (02/06/2017 20:46:Agnieszka Treadwell RN) Baby, Number in Womb: 1 (02/06/2017 20:46:Pearl Irizarry RN) CARE Primary Certified Emergency Vehicle Technician: [facility] (02/06/2017 20:46:Sharri Singleton RN) Adequate Care: Yes (02/06/2017 20:46:Sharri Singleton RN) Prepregnancy Weight (lb): 280 (02/06/2017 20:46:Martha Ramos RN) Prepregnancy Weight (kg): 127.3 (02/06/2017 20:46:QS system process) Height (in): 70 (02/06/2017 20:53:QS system process) Height (in): 71 (08/31/2016 05:53:QS system process) Height (in): 71 (08/30/2016 07:39:QS system process) Height (in): 71 (08/29/2016 10:52:QS system process) Height (in): 71 (08/29/2016 07:48:QS system process) Height (in): 71 (08/28/2016 18:04:QS system process) ALLERGIES Medication Allergy: No (02/06/2017 20:46:Sharri Singleton RN) Medication Allergies: No Known Allergies (02/16/2017) (02/16/2017 06:01:QS system process) Medication Allergies: No Known Allergies (08/26/2016) (08/28/2016 17:37:QS system process) Latex Allergy: No Latex Allergies (02/06/2017 20:46:Dionne Orr) Food Allergies: none (02/06/2017 20:46:Dionne Orr) Environmental Allergies: none (02/06/2017 20:46:Dionnesantosh Orr) COMMUNICATION Primary Language: Ivorian (02/06/2017 20:46:Sharri Singleton RN) Medical Tx Preferred Language: Ivorian (02/06/2017 20:46:Agnieszka Treadwell RN) Communication Barrier(s): None (02/06/2017 20:46:Agnieszka Treadwell RN) DEMOGRAPHICS Address: [address] [place] [id number] (08/28/2016 17:37:QS system process) Zipcode: [address] (08/28/2016 17:37:QS system process) Home (08/28/2016 17:37:QS system process) Work (02/20/2017 06:41:QS system process) Work (02/06/2017 20:42:QS system process) Work (08/28/2016 17:37:QS system process) SSN: [id number] (08/28/2016 17:37:QS system process) Next of Kin Name: KAREN GARVIN (08/28/2016 17:37:QS system process) Next of Kin (08/28/2016 17:37:QS system process) Next of Kin Relationship: MO (08/28/2016 17:37:QS system process) Date of : 1995 (08/28/2016 17:37:QS system process) Marital Status: (08/28/2016 17:37:QS system process) Sex: Female (08/28/2016 17:37:QS system process) Race: (08/28/2016 17:37:QS system process) Ethnicity: Non- or (08/28/2016 17:37:QS system process) Sabianism: Rastafari (08/28/2016 17:37:QS system process) DRUG AND ALCOHOL USE Alcohol: No (02/06/2017 20:46:Dionne Orr) Cigarettes: Never Smoker. [id number] (02/06/2017 20:46:Dionne Orr) Marijuana: No (02/06/2017 20:46:Jennifer Dolan RN) Cocaine: No (02/06/2017 20:46:Dionne Orr) Other Illicit Drugs: No (02/06/2017 20:46:Dionne Orr) VACCINE HISTORY Influenza Vaccine: Yes (02/06/2017 20:46:Dionne Orr) Influenza Date: 2015 (02/06/2017 20:46:Dionne Orr) Tdap Vaccine: Yes (02/06/2017 20:46:Dionne Orr) Tdap Date: 2015 (02/06/2017 20:46:Dionne Orr) Feeding Preference: Breast (02/06/2017 20:46:Dionne Orr) Benefit of Breast Feed Discussed: Yes (02/06/2017 20:46:Agnieszka Treadwell RN) Tubal Ligation: No (02/06/2017 20:46:Dionne Orr) Tubal Authorization Signed: N/A (02/06/2017 20:46:Dionne Orr) Consent: N/A (02/06/2017 20:46:Dionne Orr) Consent Signed: N/A (02/06/2017 20:46:Dionne Orr) Pain Management Plans: Natural; Epidural (02/06/2017 20:46:Dionne Orr) Plans for Labor and Delivery: None (02/06/2017 20:46:Dionne Orr) Support Person: Babak (02/06/2017 20:46:Dionne Orr) Support Person Relationship: (02/06/2017 20:46:Dionne Orr) Cultural/Spritual Practice: No (02/06/2017 20:46:Dionne Orr) Spir/Cult Dietary Needs: No (02/06/2017 20:46:Dionne Orr) LIVING SITUATION/DISCHARGE PLAN Living Arrangements: House (02/06/2017 20:46:Dionne Orr) Adequate Access to:: Electric; Heat; Refrigeration; Plumbing/Running water; Phone; Transportation (02/06/2017 20:46:Dionne Orr) WIC Program: No (02/06/2017 20:46:Dionne Orr) Discharge Cable Wirer Person: babak- (02/06/2017 20:46:Dionne Orr) Person to Help after Discharge: babak- (02/06/2017 20:46:Dionne Orr) Currently Using Commun Resources: Yes (02/06/2017 20:46:Dionne Orr) Specify Current Resource Used: medicaid (02/06/2017 20:46:Dionne Orr) Outside Agency/Second Time Worker: No (02/06/2017 20:46:Agnieszka Treadwell RN) Car Seat for Discharge: Yes (02/06/2017 20:46:Dionne Orr) Adoption Requested: No (02/06/2017 20:46:Dionne Orr) Pt Contact w/ Post : N/A (02/06/2017 20:46:Dionne Orr) LABS Blood Type: O Positive (02/06/2017 20:46:Sharri Singleton RN) Antibody Screen: Negative (02/06/2017 20:46:Sharri Singleton RN) Hemoglobin: 12.6 (02/17/2017 13:28:QS system process) Hemoglobin: 12.9 (02/16/2017 05:22:QS system process) Hemoglobin: 13.8 (01/21/2017 23:35:QS system process) Hemoglobin: 13.5 (11/14/2016 16:25:QS system process) Hemoglobin: 13.2 (10/07/2016 20:25:QS system process) Hemoglobin: 13.3 (08/28/2016 18:40:QS system process) Hematocrit: 36.9 (02/17/2017 13:28:QS system process) Hematocrit: 37.6 (02/16/2017 05:22:QS system process) Hematocrit: 40.9 (01/21/2017 23:35:QS system process) Hematocrit: 39.2 (11/14/2016 16:25:QS system process) Hematocrit: 38.0 (10/07/2016 20:25:QS system process) Hematocrit: 38.1 (08/28/2016 18:40:QS system process) MCV: 85 (02/17/2017 13:28:QS system process) MCV: 85 (02/16/2017 05:22:QS system process) MCV: 85 (01/21/2017 23:35:QS system process) MCV: 83 (11/14/2016 16:25:QS system process) MCV: 83 (10/07/2016 20:25:QS system process) MCV: 82 (08/28/2016 18:40:QS system process) Gonorrhea: Negative (02/06/2017 20:46:Sharri Singleton RN) Chlamydia: Negative (02/06/2017 20:46:Sharri Singleton RN) RPR/VDRL: Nonreactive (02/06/2017 20:46:Sharri Singleton RN) HIV Exposure Test: Negative (02/06/2017 20:46:Sharri Singleton RN) Hepatitis B: Negative (02/06/2017 20:46:Sharri Singleton RN) Rubella: Non-Immune (02/06/2017 20:46:Melinda Corona RN) OB/PREVIOUS HISTORY Current Procedures: Ultrasound (02/06/2017 20:46:Dionne Orr) History of Previous : No (02/06/2017 20:46:Dionne Orr) History of Gestational Diabetes: No (02/06/2017 20:46:Dionne Orr) History of PIH: No (02/06/2017 20:46:Dionne Orr) History of Incompetent Cervix: No (02/06/2017 20:46:Dionne Orr) History of Placenta Previa/Abrup: No (02/06/2017 20:46:Dionne Orr) History of Macrosomia: No (02/06/2017 20:46:Dionne Orr) History of IUGR: No (02/06/2017 20:46:Dionne Orr) History of Hemorrhage: No (02/06/2017 20:46:Dionne Orr) History of Loss/Stillborn: No (02/06/2017 20:46:Dionne Orr) History of : No (02/06/2017 20:46:Dionne Orr) History of D (Rh) Sensitization: No (02/06/2017 20:46:Dionne Orr) History Recurrent Loss/Stillborn: No (02/06/2017 20:46:Dionne Orr) History Depression/PP Depression: No (02/06/2017 20:46:Dionne Orr) History of Uterine Anomaly/ERNESTINE: No (02/06/2017 20:46:Dionne Orr) History of Infertility: No (02/06/2017 20:46:Dionne Orr) History of ART Treatment: No (02/06/2017 20:46:Dionne Orr) History of ERNESTINE: No (02/06/2017 20:46:Dionne Orr) Comments Obstetrical History: 2017 current (hyper emesis, gallbladder issues) (02/06/2017 20:46:Jennifer Dolan RN) MEDICAL HISTORY Med Hx Diabetes: No (02/06/2017 20:46:Dionne Orr) Med Hx Hypertension: No (02/06/2017 20:46:Dionne Orr) Med Hx Heart Disease: No (02/06/2017 20:46:Dionne Orr) Med Hx Autoimmune Disorder: No (02/06/2017 20:46:Dionne Orr) Med Hx Kidney Disease/UTI: No (02/06/2017 20:46:Dionne Orr) Med Hx Neurologic/Epilepsy: No (02/06/2017 20:46:Dionne Orr) Med Hx Psychiatric Disorders: No (02/06/2017 20:46:Dionne Orr) Med Hx Hepatitis/Liver Disease: No (02/06/2017 20:46:Dionne Orr) Med Hx Varicosities/Phlebitis: No (02/06/2017 20:46:Dionne Orr) Med Hx Thyroid Dysfunction: No (02/06/2017 20:46:Dionne Orr) Med Hx Trauma/Violence: No (02/06/2017 20:46:Dionne Orr) Med Hx Blood Transfusion: No (02/06/2017 20:46:Dionne Orr) Med Hx Pulmonary (Asthma,TB): No (02/06/2017 20:46:Dionne Orr) Med Hx Breast: No (02/06/2017 20:46:Dionne Orr) Med Hx CLEANING MAID Surgery: No (02/06/2017 20:46:Dionne Orr) Med Hx Hospitalization/Surgery: No (02/06/2017 20:46:Dionne Orr) Med Hx Anesthetic Complications: No (02/06/2017 20:46:Dionne Orr) Med Hx Abnormal Pap Smear: No (02/06/2017 20:46:Dionne Orr) Other Medical Diseases: No (02/06/2017 20:46:Dionne Orr) Med Hx Significant Family Hx: No (02/06/2017 20:46:Dionne Orr) INFECTIOUS HISTORY Inf Hx Gonorrhea: No (02/06/2017 20:46:Dionne Orr) Inf Hx Chlamydia: No (02/06/2017 20:46:Dionne Orr) Inf Hx Syphilis: No (02/06/2017 20:46:Dionne Orr) Inf Hx HIV/AIDS: No (02/06/2017 20:46:Dionne Orr) Inf Hx Human Papilloma Virus: No (02/06/2017 20:46:Dionne Orr) Inf Hx Pt/Partner Genital Herpes: No (02/06/2017 20:46:Dionne Orr) Inf Hx Tuberculosis/Exposure: No (02/06/2017 20:46:Dionne Orr) Inf Hx Hepatitis B,C: No (02/06/2017 20:46:Dionne Orr) Inf Hx Rash or Viral Illness: No (02/06/2017 20:46:Dionne Orr) GENETIC HISTORY Gen Hx Age >=35 at [facility]: No (02/06/2017 20:46:Dionne Orr) Gen Hx Thalassemia: No (02/06/2017 20:46:Dionne Orr) Gen Hx Congenital Heart Defect: No (02/06/2017 20:46:Dionne Orr) Gen Hx Neural Tube Defect: No (02/06/2017 20:46:Dionne Orr) Gen Hx Down's Syndrome: No (02/06/2017 20:46:Dionne Orr) Gen Hx Kris-Sachs: No (02/06/2017 20:46:Dionne Orr) Gen Hx Lilly: No (02/06/2017 20:46:Dionne Orr) Gen Hx Familial Dysautonomia: No (02/06/2017 20:46:Dionne Orr) Gen Hx Sickle Cell Disease/Trait: No (02/06/2017 20:46:Dionne Orr) Gen Hx Hemophilia/Blood Disorder: No (02/06/2017 20:46:Dionne Orr) Gen Hx Muscular Dystrophy: No (02/06/2017 20:46:Dionne Orr) Gen Hx Cystic Fibrosis: No (02/06/2017 20:46:Dionne Orr) Gen Hx Huntingtons Chorea: No (02/06/2017 20:46:Dionne Orr) Gen Hx Mental Retardation/Autism: No (02/06/2017 20:46:Dionne Orr) Gen Hx Tested for Fragile X: No (02/06/2017 20:46:Dionne Orr) Gen Hx Other Inher/Chromosomal: No (02/06/2017 20:46:Dionne Orr) Gen Hx Maternal Metabolic DO: No (02/06/2017 20:46:Dionne Orr) Gen Hx Pt Father or FOB Defect: No (02/06/2017 20:46:Dionne Orr) Gen Hx Other Genetic History: No (02/06/2017 20:46:Dionne Orr) Gen Hx Drugs/Meds since LMP: Yes (02/06/2017 20:46:Jennifer Dolan RN) Gen Hx Medications: vitamins, diclegis, (02/06/2017 20:46:Jennifer Dolan RN)
--- NOTE | 2017-02-20 10:46 | L&D Flow Sheet ---
LD Flowsheet Datetime Report Generated by CPN: 02/20/2017 10:45 Datetime: 02/20/2017 06:23 Additional Nursing Comments: Pt discharged home in stable condition. Pt given kick counts and labor signs care notes. Pt advised to call [facility] and f/u in their office within the next week. Advised no IC until after this f/u visit. Advised pt to come back to L_D if has bleeding like a cycle, if water breaks, more than 5 contractions in an hour, or if baby is not moving regularly. Pt advised to "take it easy" for next several days. Pt verbalized understanding and denies any questions. Pt off unit via wheelchair with FOB. (Agneiszka Treadwell RN) Datetime: 02/20/2017 06:12 Additional Nursing Comments: Discussed POC with pt. Recommended that pt call [facility] and schedule f/u appt within next 7 days. Explained all sono results and answered questions. Pt verbalized understanding and denies any questions. (Agnieszka Lattibeaudeir, RN) Datetime: 02/20/2017 06:07 Communication Comments: Informed Dr. Phill of ultrasound results. Received orders to discharge pt with precautions. (Agnieszka Lattibeaudeir, RN) Datetime: 02/20/2017 05:51 Comments: Patient back from ultrasound. (Agnieszka Lattibeaudeir, RN) Datetime: 02/20/2017 05:11 Monitor Mode: External (Agnieszka Lattibeaudeir, RN) Frequency (min): x1 (Agnieszka Lattibeaudeir, RN) Quality: Mild (Agnieszka Lattibeaudeir, RN) Duration (sec): 70 (Agnieszka Lattibeaudeir, RN) Resting Tone (Palpate): Relaxed (Agnieszka Lattibeaudeir, RN) Monitor Mode: External US (Agnieszka Lattibeaudeir, RN) FHR Baseline Rate : 145 (Agnieszka Lattibeaudeir, RN) Variability: Moderate 6-25 bpm (Agnieszka Lattibeaudeir, RN) Accelerations: 15X15 (Agnieszka Lattibeaudeir, RN) Decelerations: None (Agnieszka Lattibeaudeir, RN) Comments: Monitors removed for transfer to ultrasound. (Agnieszka Lattibeaudeir, RN) Datetime: 02/20/2017 05:04 Communication Comments: Called sono tech regarding ultrasound order and was told pt is next and they will be ready for pt in about 5 mins. (Agnieszka Lattibeaudeir, RN) Datetime: 02/20/2017 05:00 Monitor Mode: External (Agnieszka Lattibeaudeir, RN) Frequency (min): x3 (Agnieszka Lattibeaudeir, RN) Quality: Mild (Agnieszka Lattibeaudeir, RN) Duration (sec): 30-60 (Agnieszka Lattibeaudeir, RN) Resting Tone (Palpate): Relaxed (Agnieszka Lattibeaudeir, RN) Monitor Mode: External US (Agnieszka Lattibeaudeir, RN) FHR Baseline Rate : 145 (Agnieszka Lattibeaudeir, RN) Variability: Moderate 6-25 bpm (Agnieszka Lattibeaudeir, RN) Accelerations: 15X15 (Agnieszka Lattibeaudeir, RN) Datetime: 02/20/2017 04:30 Monitor Mode: External (Agnieszka Lattibeaudeir, RN) Frequency (min): x3 (Agnieszka Lattibeaudeir, RN) Quality: Mild (Agnieszka Lattibeaudeir, RN) Duration (sec): 40-50 (Agnieszka Lattibeaudeir, RN) Resting Tone (Palpate): Relaxed (Agnieszka Lattibeaudeir, RN) Monitor Mode: External US (Agnieszka Lattibeaudeir, RN) FHR Baseline Rate : 145 (Agnieszka Lattibeaudeir, RN) Variability: Moderate 6-25 bpm (Agnieszka [place], RN) Accelerations: 15X15 (Agnieszka Treadwell, RN) Datetime: 02/20/2017 04:25 I/O Interventions: Clear Liquids Given (Agnieszka Treadwell, RN) Communication Comments: Informed pt of plan to obtain ultrasound for cervical length and placenta location to r/o abruption. (Agnieszka Treadwell, RN) Datetime: 02/20/2017 04:17 Communication Comments: Informed Dr. Phill of pt complaint, soft abdomen, and no bleeding visialized at this time. (Agnieszka Treadwell, RN) Datetime: 02/20/2017 04:01 NBP Sys/Monica/Mean (mmHg): 137 (QS system process) : 83 (QS system process) : 105 (QS system process) Pulse: 56 (QS system process) LaborFlag: Antepartum (QS system process) Datetime: 02/20/2017 03:59 Level of Consciousness: Fully Conscious (Agnieszka Lattibeaudeir, RN) Headache: Denies (Agnieszka Lattibeaudeir, RN) Datetime: 02/20/2017 03:58 Comments: monitor applied (Agnieszka Lattibeaudeir, RN)
--- NOTE | 2017-02-20 10:46 | L&D Current Admission ---
Current Admit Datetime Report Generated by CPN: 02/20/2017 10:45 ADMISSION INFORMATION Chief Complaint: Pt sent for pre-eclamptic w/u (02/17/2017 12:52:Martha Ramos RN) Chief Complaint: Epigastric Pain; Nausea; Vomiting; Other (Annotations: Gallbladder pain, heartburn) (02/16/2017 04:55:Jennifer Dolan RN) Chief Complaint: back and abdominal pain swelling (02/06/2017 21:01:Dionne Orr)
== END 2017-02-20 06:43 | disposition home or self-care (01) ==
LOC: LC 06:41
PROVIDERS: ATTEND Obstetrics & Gynecology
PROC: 4A1HXCZ Monitoring of Products of Conception, Cardiac Rate, External Approach (ICD-10-PCS; principal; 2017-02-20)
DX: O47.03 False labor before 37 completed weeks of gestation, third trimester (principal); Z3A.32 32 weeks gestation of pregnancy
CPT/HCPCS: 59025; 76815

== ENCOUNTER 2017-02-28 10:26 | Inpatient (IN) | payer BC, MEDICAID ==
[2017-02-28 11:16] LABS: APPEARANCE,URINE CLOUDY; BILIRUBIN,URINE SMALL (NEGATIVE); GLUCOSE, URINE 50 mg/dL (NEGATIVE); KETONES,URINE NEGATIVE (NEGATIVE); LEUKOCYTE ESTERASE,URINE NEGATIVE (NEGATIVE); NITRITE,URINE NEGATIVE (NEGATIVE); PROTEIN,URINE >=500 mg/dL (NEGATIVE); UROBILINOGEN,URINE NEGATIVE mg/dL (<2.0)
[2017-02-28 11:17] LABS: URINE SPECIFIC GRAVITY > 1.060
[2017-02-28 11:28] LABS: ABSOLUTE BASOPHILS # (AUTO) 0.1 10^3/uL (0.0-0.2); ABSOLUTE EOSINOPHILS # (AUTO) 0.1 10^3/uL (0.0-0.6); ABSOLUTE LYMPHOCYTES (AUTO) 2.4 10^3/uL (0.5-4.7); ABSOLUTE MONOCYTES (AUTO) 0.7 10^3/uL (0.1-1.4); ABSOLUTE NEUT (AUTO) 8.1 10^3/uL (1.7-8.2); BASOPHILS % (AUTO) 0.4 % (0-2); EOSINOPHILS % (AUTO) 0.5 % (0-6); HEMATOCRIT 41.5 % (36.0-47.0); HEMOGLOBIN 14.2 g/dL (12.0-15.5); HGB HCT DIFFERENCE 1.1; LYMPHOCYTES % (AUTO) 21.4 % (13-45); MEAN CORPUSCULAR HEMOGLOBIN 28.5 pg (27.0-33.4); MEAN CORPUSCULAR HGB CONC 34.2 g/dL (32.0-36.0); MEAN CORPUSCULAR VOLUME 83 fl (80-97); MONOCYTES % (AUTO) 6.3 % (3-13); RED BLOOD COUNT 4.98 10^6/uL (3.72-5.28); SEGMENTED NEUTROPHILS % (AUTO) 71.4 % (42-78); WHITE BLOOD COUNT 11.4 10^3/uL (4.0-10.5)
[2017-02-28 11:32] LABS: URINE BARBITURATES SCREEN NEGATIVE; URINE METHADONE SCREEN NEGATIVE; URINE OPIATES LOW NEGATIVE; URINE PHENCYCLIDINE SCREEN NEGATIVE
[2017-02-28 11:54] LABS: ALANINE AMINOTRANSFERASE 23 U/L (9-52); ALBUMIN 2.4 g/dL (3.5-5.0); ALKALINE PHOSPHATASE 146 U/L (38-126); ANION GAP 7 (5-19); ASPARTATE AMINO TRANSFERASE 17 U/L (14-36); BILIRUBIN,TOTAL 0.9 mg/dL (0.2-1.3); BLOOD UREA NITROGEN 13 mg/dL (7-20); CALCIUM 8.1 mg/dL (8.4-10.2); CARBON DIOXIDE 22 mmol/L (22-30); CHLORIDE 106 mmol/L (98-107); CREATININE RESULT 0.92 mg/dL (0.52-1.25); GLUCOSE 69 mg/dL (75-110); LDH 589 U/L (313-618); SODIUM 134.7 mmol/L (137-145); TOTAL PROTEIN 4.9 g/dL (6.3-8.2); URIC ACID 7.7 mg/dL (2.5-6.2)
[2017-02-28] MEDS ORDERED: RINGERS SOLUTION,LACTATED 500 ML IV ONE (15:29)
--- NOTE | 2017-02-28 15:45 | L&D Progress Notes ---
PROGRESS NOTES Datetime Report Generated by CPN: 02/28/2017 15:44 PROGRESS NOTE Comment: Pt reports 10 kg weight gain in last week, also reports greatly diminished urine output with adequate intake. MEMBRANES Membranes: Intact SIGNATURE SIGNATURE: [id number];[id number] SIGNATURE: [id number] SIGNATURE: [id number] SIGNATURE: [id number] Assignment: Harika Gonzalez MD Signature: with User ID: [email or web address] : with User ID: [email or web address]
[2017-02-28 21:03] LABS: ABSOLUTE BASOPHILS # (AUTO) 0.1 10^3/uL (0.0-0.2); ABSOLUTE EOSINOPHILS # (AUTO) 0.1 10^3/uL (0.0-0.6); ABSOLUTE LYMPHOCYTES (AUTO) 2.8 10^3/uL (0.5-4.7); ABSOLUTE MONOCYTES (AUTO) 0.9 10^3/uL (0.1-1.4); ABSOLUTE NEUT (AUTO) 7.7 10^3/uL (1.7-8.2); BASOPHILS % (AUTO) 0.7 % (0-2); EOSINOPHILS % (AUTO) 0.6 % (0-6); HEMATOCRIT 36.3 % (36.0-47.0); HEMOGLOBIN 12.6 g/dL (12.0-15.5); HGB HCT DIFFERENCE 1.5; LYMPHOCYTES % (AUTO) 24.5 % (13-45); MEAN CORPUSCULAR HEMOGLOBIN 29.1 pg (27.0-33.4); MEAN CORPUSCULAR HGB CONC 34.6 g/dL (32.0-36.0); MEAN CORPUSCULAR VOLUME 84 fl (80-97); MONOCYTES % (AUTO) 7.5 % (3-13); RED BLOOD COUNT 4.31 10^6/uL (3.72-5.28); RED CELL DISTRIBUTION WIDTH 13.3 % (11.5-14.0); SEGMENTED NEUTROPHILS % (AUTO) 66.7 % (42-78); WHITE BLOOD COUNT 11.5 10^3/uL (4.0-10.5)
[2017-02-28 21:17] LABS: ALANINE AMINOTRANSFERASE 21 U/L (9-52); ALBUMIN 2.1 g/dL (3.5-5.0); ALKALINE PHOSPHATASE 126 U/L (38-126); ANION GAP 5 (5-19); ASPARTATE AMINO TRANSFERASE 15 U/L (14-36); BILIRUBIN,DIRECT 0.2 mg/dL (0.0-0.4); BILIRUBIN,TOTAL 0.8 mg/dL (0.2-1.3); BLOOD UREA NITROGEN 14 mg/dL (7-20); CALCIUM 8.2 mg/dL (8.4-10.2); CARBON DIOXIDE 23 mmol/L (22-30); CHLORIDE 107 mmol/L (98-107); CREATININE RESULT 0.92 mg/dL (0.52-1.25); GLUCOSE 98 mg/dL (75-110); LDH 515 U/L (313-618); POTASSIUM 4.1 mmol/L (3.6-5.0); SODIUM 135.3 mmol/L (137-145); TOTAL PROTEIN 4.5 g/dL (6.3-8.2); URIC ACID 8.1 mg/dL (2.5-6.2)
[2017-03-01 09:01] LABS: ABSOLUTE BASOPHILS # (AUTO) 0.2 10^3/uL (0.0-0.2); ABSOLUTE EOSINOPHILS # (AUTO) 0.1 10^3/uL (0.0-0.6); ABSOLUTE LYMPHOCYTES (AUTO) 3.2 10^3/uL (0.5-4.7); ABSOLUTE MONOCYTES (AUTO) 0.8 10^3/uL (0.1-1.4); ABSOLUTE NEUT (AUTO) 8.2 10^3/uL (1.7-8.2); BASOPHILS % (AUTO) 1.3 % (0-2); EOSINOPHILS % (AUTO) 0.9 % (0-6); HEMATOCRIT 40.1 % (36.0-47.0); HEMOGLOBIN 13.8 g/dL (12.0-15.5); HGB HCT DIFFERENCE 1.3; LYMPHOCYTES % (AUTO) 25.7 % (13-45); MEAN CORPUSCULAR HEMOGLOBIN 28.9 pg (27.0-33.4); MEAN CORPUSCULAR HGB CONC 34.3 g/dL (32.0-36.0); MEAN CORPUSCULAR VOLUME 84 fl (80-97); MONOCYTES % (AUTO) 6.7 % (3-13); RED BLOOD COUNT 4.76 10^6/uL (3.72-5.28); RED CELL DISTRIBUTION WIDTH 13.3 % (11.5-14.0); SEGMENTED NEUTROPHILS % (AUTO) 65.4 % (42-78); WHITE BLOOD COUNT 12.5 10^3/uL (4.0-10.5)
[2017-03-01 09:17] LABS: ALANINE AMINOTRANSFERASE 23 U/L (9-52); ALBUMIN 2.2 g/dL (3.5-5.0); ALKALINE PHOSPHATASE 139 U/L (38-126); ANION GAP 6 (5-19); ASPARTATE AMINO TRANSFERASE 17 U/L (14-36); BILIRUBIN,DIRECT 0.3 mg/dL (0.0-0.4); BLOOD UREA NITROGEN 14 mg/dL (7-20); CALCIUM 8.4 mg/dL (8.4-10.2); CARBON DIOXIDE 21 mmol/L (22-30); CHLORIDE 109 mmol/L (98-107); CREATININE RESULT 0.81 mg/dL (0.52-1.25); GLUCOSE 86 mg/dL (75-110); LDH 576 U/L (313-618); POTASSIUM 4.3 mmol/L (3.6-5.0); SODIUM 135.8 mmol/L (137-145); TOTAL PROTEIN 4.7 g/dL (6.3-8.2); URIC ACID 8.3 mg/dL (2.5-6.2)
[2017-03-01 11:05] LABS: APPEARANCE,URINE SLIGHTLY-CLOUDY; BILIRUBIN,URINE NEGATIVE (NEGATIVE); GLUCOSE, URINE NEGATIVE (NEGATIVE); KETONES,URINE NEGATIVE (NEGATIVE); LEUKOCYTE ESTERASE,URINE NEGATIVE (NEGATIVE); NITRITE,URINE NEGATIVE (NEGATIVE); PROTEIN,URINE >=500 mg/dL (NEGATIVE); UROBILINOGEN,URINE NEGATIVE mg/dL (<2.0)
--- NOTE | 2017-03-01 11:51 | L&D Progress Notes ---
PROGRESS NOTES Datetime Report Generated by CPN: 03/01/2017 11:50 PROGRESS NOTE Impression: Gest. HTN/PreEclampsia/Eclampsia Plan: Induction Informed Consent Obtained: Vaginal Delivery; Induction of Labor; Risks, Benefits and Alternatives Discussed Comment: Pt c/o feeling unwell for 3 days. Has gained 20 pound in 2 wks and 1 kg since yesterday. More hemoconcetrated on labs today and UO at 30 cc/hr despite excellent intake and persistent 4+ proteinuria. Discussed bringing to L and D for cervical ripening. Will start gbs prophylaxis when dee regularly. VAGINAL EXAM Dilatation: 1 Effacement: 0 Station: -3 FETUS A Monitoring: External US FHR Category: Category I SIGNATURE SIGNATURE: [id number];[id number] Signature: with User ID: [email or web address]
[2017-03-01] MEDS ORDERED: MISOPROSTOL 0.1 MG TABLET PV PRN (12:21)
[2017-03-01] MEDS ORDERED: DINOPROSTONE 10 MG VAGINAL INSERT.SR ONE (12:57)
[2017-03-01] MEDS ORDERED: MAGNESIUM SULFATE 100 ML IV ONE (13:04)
[2017-03-01] MEDS ORDERED: ACETAMINOPHEN 325 MG TABLET PO ONE (13:05)
[2017-03-01] MEDS ORDERED: MAGNESIUM SULFATE 4 GM/100 ML RTUPB IV ONE (13:13)
[2017-03-01] MEDS ORDERED: ACETAMINOPHEN 325 MG TABLET ONE (13:14)
--- NOTE | 2017-03-01 13:14 | L&D Progress Notes ---
PROGRESS NOTES Datetime Report Generated by CPN: 03/01/2017 13:14 PROGRESS NOTE Impression: Gest. HTN/PreEclampsia/Eclampsia Plan: Cervical Ripening Plan Other: cervidil placed in postfornix Informed Consent Obtained: Vaginal Delivery; Section Delivery; Risks, Benefits and Alternatives Discussed Informed Consent Obtained- Other: magnesium Vital Signs : Reviewed Comment: Pt developed KOO and UO at 30 cc/hr. Will start magnesium. VAGINAL EXAM Dilatation: 1 Effacement: 0 Station: -3 FETUS A FHR Category: Category I FETUS C SIGNATURE: [id number];[id number] Signature: with User ID: [email or web address]
[2017-03-01] MEDS: RINGERS SOLUTION,LACTATED 1,000 ML IV PRN ×2 (13:31→16:35)
[2017-03-01] MEDS: DINOPROSTONE 10 MG VAGINAL INSERT.SR PV PRN ×2 (13:33→16:30)
[2017-03-01] MEDS: MAGNESIUM SULFATE 500 ML IV PRN (13:51)
[2017-03-01] MEDS ORDERED: AZITHROMYCIN INJ 500 MG VIAL IV ONE (16:18)
[2017-03-01] MEDS ORDERED: CEFAZOLIN 2 GM/D5W RTU 2 GM/50 ML RTUPB IV ONE (16:19)
[2017-03-01] MEDS ORDERED: ONDANSETRON HCL INJ/PF 4 MG/2 ML SDV ONE ×2 (16:19→16:41)
[2017-03-01 16:27] LABS: ABSOLUTE BASOPHILS # (AUTO) 0.1 10^3/uL (0.0-0.2); ABSOLUTE EOSINOPHILS # (AUTO) 0.1 10^3/uL (0.0-0.6); ABSOLUTE LYMPHOCYTES (AUTO) 3.3 10^3/uL (0.5-4.7); ABSOLUTE MONOCYTES (AUTO) 0.8 10^3/uL (0.1-1.4); ABSOLUTE NEUT (AUTO) 8.1 10^3/uL (1.7-8.2); EOSINOPHILS % (AUTO) 0.4 % (0-6); HEMATOCRIT 48.5 % (36.0-47.0); HGB HCT DIFFERENCE 1.3; LYMPHOCYTES % (AUTO) 26.9 % (13-45); MEAN CORPUSCULAR HEMOGLOBIN 28.9 pg (27.0-33.4); MEAN CORPUSCULAR HGB CONC 34.2 g/dL (32.0-36.0); MEAN CORPUSCULAR VOLUME 85 fl (80-97); MONOCYTES % (AUTO) 6.4 % (3-13); RED BLOOD COUNT 5.73 10^6/uL (3.72-5.28); RED CELL DISTRIBUTION WIDTH 13.2 % (11.5-14.0); SEGMENTED NEUTROPHILS % (AUTO) 65.3 % (42-78); WHITE BLOOD COUNT 12.3 10^3/uL (4.0-10.5)
--- NOTE | 2017-03-01 16:27 | L&D Progress Notes ---
PROGRESS NOTES Datetime Report Generated by CPN: 03/01/2017 16:27 PROGRESS NOTE Impression: Gest. HTN/PreEclampsia/Eclampsia Informed Consent Obtained: Section Delivery; Risks, Benefits and Alternatives Discussed Comment: Pt notes recurrent KOO-had improved after tyelenol. Also with UA 20cc/hr.Repeat labs show pt more hemoconcenntrated...so vasoconstricted that initially unable to get CMP, LDH. Platelets still good at 203K on prelim cbc. Discussed r/b/a of now given remote from vag delivery and pt wishes to proceed. FETUS A FHR Category: Category I FETUS C SIGNATURE: [id number];[id number] Signature: with User ID: [email or web address]
[2017-03-01 16:33] LABS: HEMOGLOBIN 16.6 g/dL (12.0-15.5)
[2017-03-01] MEDS ORDERED: OXYTOCIN 10 UNIT/ML VIAL ONE (16:39)
[2017-03-01] MEDS ORDERED: KETOROLAC TROMETHAMINE INJ/PF 30 MG/1 ML SDV ONE (16:39)
[2017-03-01] MEDS ORDERED: MIDAZOLAM 2 MG/2 ML INJ ONE (16:40)
[2017-03-01] MEDS ORDERED: EPHEDRINE SULFATE INJ 50 MG/1 ML AMPULE ONE (16:40)
[2017-03-01] MEDS ORDERED: OXYTOCIN/NORMAL SALINE 20 UNIT/1,000 ML RTUINJ ONE (16:40)
[2017-03-01] MEDS ORDERED: FENTANYL CITRATE INJ/PF 250 MCG/5 ML AMPULE ONE (16:40)
[2017-03-01] MEDS ORDERED: FENTANYL CITRATE INJ/PF 100 MCG/2 ML AMPUL ONE (16:40)
[2017-03-01] MEDS ORDERED: ACETAMINOPHEN 100 ML IV ONE ×2 (16:41→23:53)
[2017-03-01 16:47] LABS: ALANINE AMINOTRANSFERASE 21 U/L (9-52); ALBUMIN 2.9 g/dL (3.5-5.0); ALKALINE PHOSPHATASE 199 U/L (38-126); ANION GAP 10 (5-19); ASPARTATE AMINO TRANSFERASE 18 U/L (14-36); BILIRUBIN,DIRECT 0.3 mg/dL (0.0-0.4); BILIRUBIN,TOTAL 1.1 mg/dL (0.2-1.3); BLOOD UREA NITROGEN 15 mg/dL (7-20); CALCIUM 9.1 mg/dL (8.4-10.2); CARBON DIOXIDE 20 mmol/L (22-30); CHLORIDE 108 mmol/L (98-107); CREATININE RESULT 0.82 mg/dL (0.52-1.25); GLUCOSE 65 mg/dL (75-110); LDH 719 U/L (313-618); MAGNESIUM 3.8 mg/dL (1.6-2.3); POTASSIUM 4.2 mmol/L (3.6-5.0); SODIUM 137.7 mmol/L (137-145); TOTAL PROTEIN 5.6 g/dL (6.3-8.2)
[2017-03-01] MEDS ORDERED: CEFAZOLIN 2 GM/D5W RTU 50 ML IV SCH (18:00)
[2017-03-01] MEDS ORDERED: MISOPROSTOL 0.2 MG TABLET ONE (18:01)
[2017-03-01] MEDS ORDERED: MISOPROSTOL 0.2 MG TABLET PR ONE (18:01)
--- NOTE | 2017-03-01 18:02 | L&D General Admission ---
General Admit Datetime Report Generated by CPN: 03/01/2017 18:00 INFORMATION Patient Age: 21 (08/28/2016 17:37:QS system process) EDC: 04/08/2017 00:00 (02/06/2017 20:46:Sharri Singleton RN) : 1 (02/06/2017 20:46:Sharri Singleton RN) Para: 0 (02/06/2017 20:46:Sharri Singleton RN) Term: 0 (02/06/2017 20:46:Agnieszka Treadwell RN) : 0 (02/06/2017 20:46:Agnieszka Treadwell RN) Spontaneous Abortions: 0 (02/06/2017 20:46:Agnieszka Treadwell RN) Induced Abortions: 0 (02/06/2017 20:46:Agnieszka Treadwell RN) Livin (02/06/2017 20:46:Agnieszka Treadwell RN) Cesareans: 0 (02/06/2017 20:46:Agnieszka Treadwell RN) VBACs: 0 (02/06/2017 20:46:Agnieszka Treadwell RN) Ectopic: 0 (02/06/2017 20:46:Agnieszka Treadwell RN) Multiple Births: 0 (02/06/2017 20:46:Agnieszka Treadwell RN) Baby, Number in Womb: 1 (02/06/2017 20:46:Pearl Irizarry RN) CARE Primary Banquet Lead: [facility] (02/06/2017 20:46:Sharri Singleton RN) Adequate Care: Yes (02/06/2017 20:46:Sharri Singleton RN) Prepregnancy Weight (lb): 280 (02/06/2017 20:46:Martha Ramos RN) Prepregnancy Weight (kg): 127.3 (02/06/2017 20:46:QS system process) Height (in): 70 (02/06/2017 20:53:QS system process) ALLERGIES Medication Allergy: No (02/06/2017 20:46:Sharri Singleton RN) Medication Allergies: No Known Allergies (02/28/2017) (02/28/2017 10:43:QS system process) Latex Allergy: No Latex Allergies (02/06/2017 20:46:Dionne Orr) Food Allergies: none (02/06/2017 20:46:Dionne Orr) Environmental Allergies: none (02/06/2017 20:46:Dionne Orr) COMMUNICATION Primary Language: Kyrgyz (02/06/2017 20:46:Sharri Singleton RN) Medical Tx Preferred Language: Kyrgyz (02/06/2017 20:46:Agnieszka Treadwell RN) Communication Barrier(s): None (02/06/2017 20:46:Agnieszka Treadwell RN) DEMOGRAPHICS Address: [address] [place] [id number] (08/28/2016 17:37:QS system process) Zipcode: [id number] (08/28/2016 17:37:QS system process) Home (08/28/2016 17:37:QS system process) Work (02/20/2017 06:41:QS system process) SSN: [id number] (08/28/2016 17:37:QS system process) Next of Kin Name: KAREN GARVIN (08/28/2016 17:37:QS system process) Next of Kin (08/28/2016 17:37:QS system process) Next of Kin Relationship: MO (08/28/2016 17:37:QS system process) Date of : 1995 (08/28/2016 17:37:QS system process) Marital Status: (08/28/2016 17:37:QS system process) Sex: Female (08/28/2016 17:37:QS system process) Race: (08/28/2016 17:37:QS system process) Ethnicity: Non- or (08/28/2016 17:37:QS system process) Adventist: Jehovah'S Witness (08/28/2016 17:37:QS system process) DRUG AND ALCOHOL USE Alcohol: No (02/06/2017 20:46:Dionne Kirby) Cigarettes: Never Smoker. [id number] (02/06/2017 20:46:Dionne Orr) Marijuana: No (02/06/2017 20:46:Jennifer Dolan RN) Cocaine: No (02/06/2017 20:46:Dionne Orr) Other Illicit Drugs: No (02/06/2017 20:46:Dionnesantosh Orr) VACCINE HISTORY Influenza Vaccine: Yes (02/06/2017 20:46:Dionne Orr) Influenza Date: 2015 (02/06/2017 20:46:Dionne Orr) Pneumococcal Vaccine: No (02/06/2017 20:46:Jing Lee RN) Tetanus Vaccine: Yes (02/06/2017 20:46:Jing Lee RN) Tdap Vaccine: Yes (02/06/2017 20:46:Dionne Kirby) Tdap Date: 2015 (02/06/2017 20:46:Dionne Kirby) Hepatitis B Vaccine: No (02/06/2017 20:46:Jing Lee RN) Chemist Intern: [facility] (02/06/2017 20:46:Jing Lee RN) Feeding Preference: Breast (02/06/2017 20:46:Dionne Orr) Benefit of Breast Feed Discussed: Yes (02/06/2017 20:46:Agnieszka Treadwell RN) Circumcision: N/A (02/06/2017 20:46:Jing Lee RN) Classes Attended: No (02/06/2017 20:46:Jing Lee RN) Tubal Ligation: No (02/06/2017 20:46:Dionne Orr) Tubal Authorization Signed: N/A (02/06/2017 20:46:Dionne Orr) Consent: N/A (02/06/2017 20:46:Dionne Orr) Consent Signed: N/A (02/06/2017 20:46:Dionne Orr) Pain Management Plans: Natural (02/06/2017 20:46:Jing Lee RN) Plans for Labor and Delivery: None (02/06/2017 20:46:Dionne Orr) Support Person: Babak (02/06/2017 20:46:Dionne Orr) Support Person Relationship: (02/06/2017 20:46:Dionne Orr) Cultural/Spritual Practice: No (02/06/2017 20:46:Dionne Orr) Spir/Cult Dietary Needs: No (02/06/2017 20:46:Dionne Orr) LIVING SITUATION/DISCHARGE PLAN Living Arrangements: House (02/06/2017 20:46:Dionne Orr) Adequate Access to:: Electric; Heat; Refrigeration; Plumbing/Running water; Phone; Transportation (02/06/2017 20:46:Dionne Orr) WIC Program: No (02/06/2017 20:46:Dionne Orr) 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: babak- (02/06/2017 20:46:Dionne Orr) Person to Help after Discharge: babak- (02/06/2017 20:46:Dionne Orr) Currently Using Commun Resources: Yes (02/06/2017 20:46:Dionne Orr) Specify Current Resource Used: medicaid (02/06/2017 20:46:Dionne Orr) Outside Agency/Vocational Rehab Consultant: No (02/06/2017 20:46:Agnieszka Treadwell RN) Car Seat for Discharge: Yes (02/06/2017 20:46:Dionne Kirby) Adoption Requested: No (02/06/2017 20:46:Dionnesantosh Orr) Pt Contact w/ Post : N/A (02/06/2017 20:46:Dionne Orr) LABS Blood Type: O Positive (02/06/2017 20:46:Sharri Singleton RN) Antibody Screen: Negative (02/06/2017 20:46:Sharri Singleton RN) Hemoglobin: 16.6 H (03/01/2017 16:17:QS system process) Hematocrit: 48.5 H (03/01/2017 16:17:QS system process) MCV: 85 (03/01/2017 16:17:QS system process) Group Beta Strep: Unknown (02/06/2017 20:46:Aby Chavez RN) Gonorrhea: Negative (02/06/2017 20:46:Sharri Singleton RN) Chlamydia: Negative (02/06/2017 20:46:Sharri Singleton RN) RPR/VDRL: Nonreactive (02/06/2017 20:46:Sharri Singleton RN) HIV Exposure Test: Negative (02/06/2017 20:46:Sharri Singleton RN) Hepatitis B: Negative (02/06/2017 20:46:Sharri Singleton RN) Rubella: Non-Immune (02/06/2017 20:46:Melinda Corona RN) OB/PREVIOUS HISTORY Previous Procedures: None (02/06/2017 20:46:Jing Lee RN) Current Procedures: Ultrasound (02/06/2017 20:46:Dionne Orr) History of Previous : No (02/06/2017 20:46:Dionne Orr) History of Gestational Diabetes: No (02/06/2017 20:46:Dionne Orr) History of PIH: Yes (02/06/2017 20:46:Jing Lee RN) History of Incompetent Cervix: No (02/06/2017 20:46:Dionne Orr) History of Placenta Previa/Abrup: No (02/06/2017 20:46:Dionne Orr) History of Macrosomia: No (02/06/2017 20:46:Dionne Orr) History of IUGR: No (02/06/2017 20:46:Dionne Orr) History of Hemorrhage: No (02/06/2017 20:46:Dionne Orr) History of Loss/Stillborn: No (02/06/2017 20:46:Dionne Orr) History of : No (02/06/2017 20:46:Dionne Orr) History of D (Rh) Sensitization: No (02/06/2017 20:46:Dionne Orr) History Recurrent Loss/Stillborn: No (02/06/2017 20:46:Dionne Orr) History Depression/PP Depression: No (02/06/2017 20:46:Dionne Orr) History of Uterine Anomaly/ERNESTINE: No (02/06/2017 20:46:Dionne Orr) History of Infertility: No (02/06/2017 20:46:Dionne Orr) History of ART Treatment: No (02/06/2017 20:46:Dionne Orr) History of ERNESTINE: No (02/06/2017 20:46:Dionne Orr) Comments Obstetrical History: 2017 current (hyper emesis, gallbladder issues) (02/06/2017 20:46:Jennifer Dolan RN) MEDICAL HISTORY Med Hx Diabetes: No (02/06/2017 20:46:Dionne Orr) Med Hx Hypertension: No (02/06/2017 20:46:Dionne Orr) Med Hx Heart Disease: No (02/06/2017 20:46:Dionne Orr) Med Hx Autoimmune Disorder: No (02/06/2017 20:46:Dionne Orr) Med Hx Kidney Disease/UTI: No (02/06/2017 20:46:Dionne Orr) Med Hx Neurologic/Epilepsy: No (02/06/2017 20:46:Dionne Orr) Med Hx Psychiatric Disorders: No (02/06/2017 20:46:Dionne Orr) Med Hx Hepatitis/Liver Disease: No (02/06/2017 20:46:Dionne Orr) Med Hx Varicosities/Phlebitis: No (02/06/2017 20:46:Dionne Orr) Med Hx Thyroid Dysfunction: No (02/06/2017 20:46:Dionne Orr) Med Hx Trauma/Violence: No (02/06/2017 20:46:Dionne Orr) Med Hx Blood Transfusion: No (02/06/2017 20:46:Dionne Orr) Med Hx Pulmonary (Asthma,TB): No (02/06/2017 20:46:Dionne Orr) Med Hx Breast: No (02/06/2017 20:46:Dionne Orr) Med Hx BURRER HAND Surgery: No (02/06/2017 20:46:Dionne Orr) Med Hx Hospitalization/Surgery: No (02/06/2017 20:46:Dionne Orr) Med Hx Anesthetic Complications: No (02/06/2017 20:46:Dionne Orr) Med Hx Abnormal Pap Smear: No (02/06/2017 20:46:Dionne Orr) Other Medical Diseases: No (02/06/2017 20:46:Dionne Orr) Med Hx Significant Family Hx: No (02/06/2017 20:46:Dionne Orr) INFECTIOUS HISTORY Inf Hx Gonorrhea: No (02/06/2017 20:46:Dionne Orr) Inf Hx Chlamydia: No (02/06/2017 20:46:Dionne Orr) Inf Hx Syphilis: No (02/06/2017 20:46:Dionnesantosh Orr) Inf Hx HIV/AIDS: No (02/06/2017 20:46:Dionne Orr) Inf Hx Human Papilloma Virus: No (02/06/2017 20:46:Dionne Orr) Inf Hx Pt/Partner Genital Herpes: No (02/06/2017 20:46:Dionne Orr) Inf Hx Tuberculosis/Exposure: No (02/06/2017 20:46:Dionne Orr) Inf Hx Hepatitis B,C: No (02/06/2017 20:46:Dionne Orr) Inf Hx Rash or Viral Illness: No (02/06/2017 20:46:Dionne Orr) GENETIC HISTORY Gen Hx Age >=35 at CORY: No (02/06/2017 20:46:Dionne Orr) Gen Hx Thalassemia: No (02/06/2017 20:46:Dionne Orr) Gen Hx Congenital Heart Defect: No (02/06/2017 20:46:Dionne Orr) Gen Hx Neural Tube Defect: No (02/06/2017 20:46:Dionne Orr) Gen Hx Down's Syndrome: No (02/06/2017 20:46:Dionne Orr) Gen Hx Kris-Sachs: No (02/06/2017 20:46:Dionne Orr) Gen Hx Lilly: No (02/06/2017 20:46:Dionne Orr) Gen Hx Familial Dysautonomia: No (02/06/2017 20:46:Dionne Orr) Gen Hx Sickle Cell Disease/Trait: No (02/06/2017 20:46:Dionne Orr) Gen Hx Hemophilia/Blood Disorder: No (02/06/2017 20:46:Dionne Orr) Gen Hx Muscular Dystrophy: No (02/06/2017 20:46:Dionne Orr) Gen Hx Cystic Fibrosis: No (02/06/2017 20:46:Dionne Orr) Gen Hx Huntingtons Chorea: No (02/06/2017 20:46:Dionne Orr) Gen Hx Mental Retardation/Autism: No (02/06/2017 20:46:Dionne Orr) Gen Hx Tested for Fragile X: No (02/06/2017 20:46:Dionne Orr) Gen Hx Other Inher/Chromosomal: No (02/06/2017 20:46:Dionne Orr) Gen Hx Maternal Metabolic DO: No (02/06/2017 20:46:Dionne Orr) Gen Hx Pt Father or FOB Defect: No (02/06/2017 20:46:Dionne Orr) Gen Hx Other Genetic History: No (02/06/2017 20:46:Dionne Orr) Gen Hx Drugs/Meds since LMP: Yes (02/06/2017 20:46:Jennifer Dolan RN) Gen Hx Medications: vitamins, diclegis, (02/06/2017 20:46:Jennifer Dolan RN)
--- NOTE | 2017-03-01 18:02 | L&D Current Admission ---
Current Admit Datetime Report Generated by CPN: 03/01/2017 18:00 ADMISSION INFORMATION Current Admit Date/Time: 03/01/2017 11:36 (03/01/2017 13:43:Aby Chavez RN) Reason for Admission: Induction of Labor (03/01/2017 13:43:Aby Chavez RN) Other Reason for Admission: Severe Preeclampsia (03/01/2017 13:43:Aby Chavez RN) Chief Complaint: Scheduled Induction of Labor (03/01/2017 13:43:Aby Chavez RN) Medications During : Vitamin (03/01/2017 13:43:Aby Chavez RN) EGA per Dates: 34.4 (03/01/2017 13:43:QS system process) Method of Arrival: Wheelchair (03/01/2017 13:43:Aby Chavez RN) Admitted From: Antepartum Unit (03/01/2017 13:43:Aby Chavez RN) Reason for Induction: Pre-Eclampsia (03/01/2017 13:43:Aby Chavez RN) Records Available: Yes (03/01/2017 13:43:Aby Chavez RN) General Admission Information: Reviewed; Updated; Confirmed (03/01/2017 13:43:Aby Chavez RN) General Admission Reviewed By: Benny Chavez RN (03/01/2017 13:43:Aby Chavez RN) BELONGINGS/ADVANCED DIRECTIVES Valuables/Personal Effects: None (03/01/2017 13:43:Aby Chavez RN) Other Belongings: See belongings consent (03/01/2017 13:43:Aby Chavez RN) Disposition of Belongings: Kept with Patient (03/01/2017 13:43:Aby Chavez RN) Advance Direct for Healthcare: No, and Wants No Information (03/01/2017 13:43:Aby Chavez RN) Durable Power of Enterprise Resource Planning Consultant: No (03/01/2017 13:43:Aby Chavez RN) Living Will: No (03/01/2017 13:43:Aby Chavez RN) Organ Donor: No (03/01/2017 13:43:Aby Chavez RN) Pt Rights Information Given: Yes (03/01/2017 13:43:Aby Chavez RN) Pt Understands Pt Rights: Yes (03/01/2017 13:43:Aby Chavez RN) LEARNING ASSESSMENT Knowledge Level: Understands L_D Process; Understands Care Activities; Had Pre-Hospital Education; Understands Diagnosis (03/01/2017 13:43:Aby Chavez RN) Barriers to Learning: None (03/01/2017 13:43:Aby Chavez RN) Learning Readiness: Motivated (03/01/2017 13:43:Aby Chavez RN) Learns Best By: 1 to 1 Instruction; Reading; Videos; Demonstration (03/01/2017 13:43:Aby Chavez RN) Learning Needs: Labor and Delivery Process; Pain Management; Symptoms to Report; Treatment Plan; Medication; Diagnosis; Nutrition; Equipment; Infant Care; Community Resources (03/01/2017 13:43:Aby Chavez RN) DOMESTIC VIOLANCE SCREENING Dom Viol Threatened/Hurt: No (03/01/2017 13:43:Aby Chavez RN) Hx of Abuse/Neglect past 2yrs: No (03/01/2017 13:43:Aby Chavez RN) Feel Unsafe Going Home: No (03/01/2017 13:43:Aby Chavez RN) Addt'l Observ Indicating Abuse: No (03/01/2017 13:43:Aby Chavez RN) Reason Unable to Complete Screen: N/A, Screen Completed (03/01/2017 13:43:Aby Chavez RN) Considered Personal Harm/Suicide: No (03/01/2017 13:43:Aby Chavez RN) NUTRITIONAL/FUNCTIONAL SCREENING Problem with Appetite >5 Days: No (03/01/2017 13:43:Aby Chavez RN) Chew/Swallow Difficulties: No (03/01/2017 13:43:Aby Chavez RN) Inappropriate Wt Gain/Loss: No (03/01/2017 13:43:Aby Chavez RN) Presence Skin Breakdown/Ulcer: No (03/01/2017 13:43:Aby Chavez RN) Special Diet: No (03/01/2017 13:43:Aby Chavez RN) Pt Requests Main Galley Scullion Visit: No (03/01/2017 13:43:Aby Chavez RN) Hx of Any of the Following?: N/A (03/01/2017 13:43:Aby Chavez RN) New Diagnosis of: Gestational Hypertension (03/01/2017 13:43:Aby Chavez RN) Nutrition Comments: Severe Preeclampsia (03/01/2017 13:43:Aby Chavez RN) Requires Assist w/Ambulation: No (03/01/2017 13:43:Aby Chavez RN) Uses Assist Device to Ambulate: No (03/01/2017 13:43:Aby Chavez RN) Pt Requires Help w/ADL's: No (03/01/2017 13:43:Aby Chavez RN)
[2017-03-01] MEDS ORDERED: OXYTOCIN/NORMAL SALINE 1,000 ML IV PRN (18:38)
[2017-03-01] MEDS ORDERED: OXYCODONE HCL IR 5 MG TABLET PO PRN (18:38)
[2017-03-01] MEDS ORDERED: DIPH/PERTUSS(ACELL)/TETANUS VAC/PF 0.5 ML SYR (>=10YO) IM PRN (18:38)
[2017-03-01] MEDS ORDERED: PROMETHAZINE HCL INJ 25 MG/1 ML VIAL IV PRN ×3 (18:38→18:44)
[2017-03-01] MEDS ORDERED: MEASLES,MUMPS&RUBELLA VACC/PF 0.5 ML VIAL SUBCUT PRN (18:38)
[2017-03-01] MEDS ORDERED: ONDANSETRON HCL INJ/PF 4 MG/2 ML SDV IV PRN (18:44)
[2017-03-01] MEDS ORDERED: FENTANYL CITRATE INJ/PF 100 MCG/2 ML AMPUL IV PRN ×3 (18:44)
[2017-03-01] MEDS ORDERED: OXYCODONE-ACETAMINOPHEN 5-325 MG TABLET PO PRN ×2 (18:44)
[2017-03-01] MEDS ORDERED: MEPERIDINE HCL/PF INJ 25 MG/1 ML DISP.SYRIN IV PRN (18:44)
[2017-03-01] MEDS ORDERED: LABETALOL HCL INJ 20 MG/4 ML DISP.SYRIN IV PRN (18:44)
[2017-03-01] MEDS ORDERED: DIPHENHYDRAMINE HCL 50 MG/ML VIAL IV PRN (18:44)
[2017-03-01] MEDS ORDERED: MEPERIDINE HCL/PF INJ 25 MG/1 ML DISP.SYRIN ONE (19:10)
[2017-03-01] MEDS ORDERED: DIPHENHYDRAMINE HCL 50 MG/ML VIAL ONE (19:10)
[2017-03-01] MEDS: MORPHINE SULFATE 10 MG/ML INJ IV PRN ×2 (19:47→20:40)
[2017-03-01] MEDS ORDERED: MORPHINE SULFATE 10 MG/ML INJ ONE (19:47)
--- NOTE | 2017-03-01 20:01 | L&D Flow Sheet ---
LD Flowsheet Datetime Report Generated by CPN: 03/01/2017 20:00 Datetime: 03/01/2017 19:55 NBP Sys/Monica/Mean (mmHg): 144 (QS system process) : 98 (QS system process) : 116 (QS system process) Pulse: 72 (QS system process) Datetime: 03/01/2017 19:47 Pain Scale: 3 (Karen Welsh, RN) Pain Presence: Constant (Karen Welsh, RN) Pain Type: Ache (Treycslillianara Blaise, RN) Pain Location: Abdomen (Rucsandra Blaise, RN) Pain Goal: 2 (Rucsandra Blaise, RN) Pain Relief Measures: Pain Medication Given (Rucsandra Blaise, RN) Datetime: 03/01/2017 19:40 Stage of : Recovery (Rukhloeandra Welsh, RN) NBP Sys/Monica/Mean (mmHg): 143 (QS system process) : 97 (QS system process) : 114 (QS system process) Pulse: 75 (QS system process) Respirations: 18 (Rucsandra Blaise, RN) Pain Scale: 2 (Rucsandra Blaise, RN) Pain Presence: Intermittent (Rucsandra Blaise, RN) Pain Type: Ache (Rucsandra Blaise, RN) Pain Location: Abdomen (Rucsandra Blaise, RN) Datetime: 03/01/2017 19:28 Stage of : Recovery (Rukhloeandra Blaise, RN) NBP Sys/Monica/Mean (mmHg): 141 (QS system process) : 90 (QS system process) : 111 (QS system process) Pulse: 65 (QS system process) Pain Scale: 0 (Karen Welsh RN) Pain Presence: None/Denies (Karen Welsh RN) Pain Type: N/A (Karen Welsh RN) Datetime: 03/01/2017 19:25 Pulse: 67 (QS system process) SpO2 (%): 94 (QS system process) Datetime: 03/01/2017 19:10 NBP Sys/Monica/Mean (mmHg): 139 (QS system process) : 84 (QS system process) : 106 (QS system process) Pulse: 65 (QS system process) Pulse: 63 (QS system process) Respirations: 16 (Aby Chavez RN) SpO2 (%): 93 (QS system process) Pain Scale: 0 (Aby Chavez RN) Pain Presence: None/Denies (Aby Chavez RN) Pain Type: N/A (Aby Chavez RN) Datetime: 03/01/2017 19:00 Level of Consciousness: Fully Conscious (Aby Scott, RN) DTR's/Clonus: DTRs 1+; No Clonus (Aby Scott, RN) Headache: Denies (Aby Chavez, RN) Breath Sounds, Left: Clear and Equal (Aby Scott, RN) Breath Sounds, Right: Clear and Equal (Aby Scott, RN) Nausea/Vomiting: Denies (Aby Scott, RN) RUQ Epigastric Pain: Denies (Aby Scott, RN) Datetime: 03/01/2017 18:56 Pulse: 74 (QS system process) SpO2 (%): 87 (QS system process) Datetime: 03/01/2017 18:55 NBP Sys/Monica/Mean (mmHg): 138 (QS system process) : 84 (QS system process) : 105 (QS system process) Pulse: 73 (QS system process) Respirations: 18 (Aby Scott, RN) Temperature (F): 97.5 (Aby Scott, RN) Temperature (C): 36.4 (QS system process) Temperature Route: Oral (Aby Chavez, RN) Pain Scale: 0 (Abyjennyfer Chavez, RN) Pain Presence: None/Denies (Abyjennyfer Chavez, RN) Pain Type: N/A (Aby Scott, RN) Datetime: 03/01/2017 18:51 NBP Sys/Monica/Mean (mmHg): 138 (QS system process) : 83 (QS system process) : 105 (QS system process) Pulse: 68 (QS system process) Respirations: 16 (Aby Scott, RN) Datetime: 03/01/2017 18:50 Pulse: 67 (QS system process) SpO2 (%): 96 (QS system process) Datetime: 03/01/2017 18:45 NBP Sys/Monica/Mean (mmHg): 144 (QS system process) : 70 (QS system process) : 101 (QS system process) Pulse: 72 (QS system process) Pulse: 74 (QS system process) Respirations: 16 (Aby Scott, RN) SpO2 (%): 94 (QS system process) Datetime: 03/01/2017 18:41 NBP Sys/Monica/Mean (mmHg): 137 (QS system process) : 77 (QS system process) : 101 (QS system process) Pulse: 80 (QS system process) Respirations: 18 (Aby Scott, RN) Datetime: 03/01/2017 18:40 Pulse: 75 (QS system process) SpO2 (%): 95 (QS system process) Pain Scale: 0 (Aby Scott, RN) Pain Presence: None/Denies (Aby Scott, RN) Pain Type: N/A (Aby Scott, RN) Datetime: 03/01/2017 18:36 NBP Sys/Monica/Mean (mmHg): 144 (QS system process) : 73 (QS system process) : 105 (QS system process) Pulse: 70 (QS system process) Datetime: 03/01/2017 18:35 Pulse: 70 (QS system process) Respirations: 16 (Aby Scott, RN) SpO2 (%): 98 (QS system process) Datetime: 03/01/2017 18:26 Pulse: 70 (QS system process) SpO2 (%): 93 (QS system process) Datetime: 03/01/2017 18:25 Stage of : Recovery (Aby Chavez RN) NBP Sys/Monica/Mean (mmHg): 129 (QS system process) : 68 (QS system process) : 92 (QS system process) Pulse: 78 (QS system process) Pulse: 72 (QS system process) Respirations: 16 (Aby Chavez RN) SpO2 (%): 95 (QS system process) Temperature (F): 97.1 (Aby Chavez RN) Temperature (C): 36.2 (QS system process) Pain Scale: 0 (Aby Chavez RN) Pain Presence: None/Denies (Aby Chavez RN) Pain Type: N/A (Aby Chavez RN) Datetime: 03/01/2017 17:25 Procedure Type: Primary c/section (Aby Chavez, RN) Procedure Verify: Correct Patient Identity; Correct Side and Site are Marked; Accurate Procedure Consent Form; Agreement on Procedure to be Done; Correct Patient Position (bAy Chavez, RN) Datetime: 03/01/2017 17:00 Level of Consciousness: Fully Conscious (Aby Scott, RN) DTR's/Clonus: DTRs 1+; No Clonus (Aby Scott, RN) Headache: Frontal (Aby Scott, RN) Breath Sounds, Left: Clear and Equal (Aby Scott, RN) Breath Sounds, Right: Clear and Equal (Aby Scott, RN) Nausea/Vomiting: Denies (Aby Scott, RN) RUQ Epigastric Pain: Denies (Aby Scott, RN) Datetime: 03/01/2017 16:50 Comments: Monitors removed for transport to OR (Aby Chavez RN) Medication Comments: Mag Sulfate d/c for c/section (Aby Chavez RN) Datetime: 03/01/2017 16:49 Monitor Mode: External; Palpation (Aby Chavez RN) Frequency (min): 2-4 (Aby Chavez RN) Quality: Mild (Aby Chavez RN) Duration (sec): 50-70 (Aby Chavez RN) Resting Tone (Palpate): Relaxed (Aby Chavez RN) Monitor Mode: External US (Aby Chavez RN) FHR Baseline Rate : 145 (Aby Chavez RN) Variability: Moderate 6-25 bpm (Aby Chavez RN) Decelerations: None (Aby Chavez, RN) Datetime: 03/01/2017 16:47 NBP Sys/Monica/Mean (mmHg): 160 (QS system process) : 100 (QS system process) : 123 (QS system process) Pulse: 86 (QS system process) LaborFlag: Antepartum (QS system process) Datetime: 03/01/2017 16:40 Procedure Type: Primary c/section (Aby Chavez RN) Procedure Verify: Correct Patient Identity; Correct Side and Site are Marked; Accurate Procedure Consent Form; Agreement on Procedure to be Done; Relevant Images and Results are Properly Labeled and Displayed; Addressed Need to Administer Antibiotics or Fluids for Irrigation; Safety Precautions Based on Patient History or Medication Use (Aby Chavez RN) Datetime: 03/01/2017 16:34 Antibiotics: Ancef IV (Gm) @ 2 (Aby Chavez RN) IV/Blood Work: New IV Bag Hung; IV Bag Number @ 2 (Aby Chavez RN) Procedure Type: Primary c/section (Aby Chavez RN) Procedure Verify: Correct Patient Identity; Correct Side and Site are Marked; Accurate Procedure Consent Form; Agreement on Procedure to be Done; Relevant Images and Results are Properly Labeled and Displayed; Addressed Need to Administer Antibiotics or Fluids for Irrigation; Safety Precautions Based on Patient History or Medication Use (Aby Chavez RN) Anesthesia Plans: Spinal (Aby Scott, RN) Datetime: 03/01/2017 16:32 Patient Care Comments: abd clip for c/section (Aby Chavez RN) Datetime: 03/01/2017 16:30 NBP Sys/Monica/Mean (mmHg): 154 (QS system process) : 91 (QS system process) : 114 (QS system process) Pulse: 76 (QS system process) Monitor Mode: External; Palpation (Aby Chavez RN) Frequency (min): 2-4 (Aby Chavez RN) Quality: Mild (Aby Chavez RN) Duration (sec): 40-60 (Aby Chavez RN) Resting Tone (Palpate): Relaxed (Aby Chavez RN) Monitor Mode: External US (Aby Chavez RN) FHR Baseline Rate : 145 (Aby Chavez RN) Variability: Moderate 6-25 bpm (Aby Chavez RN) Decelerations: None (Aby Chavez RN) LaborFlag: Antepartum (QS system process) Datetime: 03/01/2017 16:24 Medication Comments: Cervidil removed (Aby Scott, RN) Datetime: 03/01/2017 16:23 IV/Blood Work: IV Bolus Started (Aby Scott, RN) Datetime: 03/01/2017 16:15 NBP Sys/Monica/Mean (mmHg): 158 (QS system process) : 95 (QS system process) : 118 (QS system process) Pulse: 95 (QS system process) LaborFlag: Antepartum (QS system process) Datetime: 03/01/2017 16:10 Communication Comments: Dr Neilsen at bedside (Aby Scott, RN) Datetime: 03/01/2017 16:01 NBP Sys/Monica/Mean (mmHg): 167 (QS system process) : 97 (QS system process) : 124 (QS system process) Pulse: 78 (QS system process) Respirations: 16 (Aby Scott, RN) LaborFlag: Antepartum (QS system process) Datetime: 03/01/2017 16:00 Monitor Mode: External; Palpation (Aby Scott, RN) Frequency (min): Irreg (Aby Chavez RN) Quality: Mild (Aby Chavez RN) Duration (sec): 40-60 (Aby Chavez RN) Resting Tone (Palpate): Relaxed (Aby Chavez RN) Monitor Mode: External US (Aby Chavez RN) FHR Baseline Rate : 145 (Aby Chavez RN) Variability: Moderate 6-25 bpm (Aby Chavez RN) Accelerations: 15X15 (Aby Chavez RN) Decelerations: None (Aby Chavez RN) Pain Scale: 2 (Aby Chavez RN) Pain Presence: Constant (Aby Chavez RN) Pain Type: Dull (Aby Chavez RN) Pain Location: Head (Aby Chavez RN) Pain Relief Measures: Comfort Measures (Aby Chavez RN) Level of Consciousness: Fully Conscious (Aby Chavez RN) DTR's/Clonus: DTRs 1+; No Clonus (Aby Chavez RN) Headache: Generalized; Frontal (Aby Chavez RN) Breath Sounds, Left: Clear and Equal (Aby Chavez RN) Breath Sounds, Right: Clear and Equal (Aby Chavez RN) Nausea/Vomiting: Denies (Aby Chavez RN) RUQ Epigastric Pain: Denies (Aby Chavez RN) LaborFlag: Antepartum (QS system process) Datetime: 03/01/2017 15:31 Respirations: 16 (Aby Chavez RN) Monitor Mode: External; Palpation (Aby Chavez RN) Frequency (min): 0 (Aby Chavez RN) Resting Tone (Palpate): Relaxed (Aby Chavez RN) Monitor Mode: External US (Aby Chavez RN) FHR Baseline Rate : 155 (Aby Chavez RN) Variability: Moderate 6-25 bpm (Aby Chavez RN) Decelerations: None (Aby Chavez RN) LaborFlag: Antepartum (QS system process) Datetime: 03/01/2017 15:30 NBP Sys/Monica/Mean (mmHg): 148 (QS system process) : 82 (QS system process) : 109 (QS system process) Pulse: 78 (QS system process) LaborFlag: Antepartum (QS system process) Datetime: 03/01/2017 15:15 NBP Sys/Monica/Mean (mmHg): 141 (QS system process) : 80 (QS system process) : 106 (QS system process) Pulse: 78 (QS system process) LaborFlag: Antepartum (QS system process) Datetime: 03/01/2017 15:00 NBP Sys/Monica/Mean (mmHg): 147 (QS system process) : 96 (QS system process) : 117 (QS system process) Pulse: 78 (QS system process) Respirations: 16 (Aby Chavez RN) Monitor Mode: External; Palpation (Aby Chavez RN) Frequency (min): Occ (Aby Chavez RN) Quality: Mild (Aby Chavez RN) Duration (sec): 30-40 (Aby Chavez RN) Resting Tone (Palpate): Relaxed (Aby Chavez RN) Monitor Mode: External US (Aby Chavez RN) FHR Baseline Rate : 145 (Aby Chavez, RN) Variability: Moderate 6-25 bpm (Aby Chavez, RN) Accelerations: 15X15 (Aby Chavez, RN) Decelerations: None (Aby Chavez RN) Level of Consciousness: Fully Conscious (Aby Chavez RN) DTR's/Clonus: DTRs 1+; No Clonus (Aby Chavez, RN) Headache: Denies (Aby Chavez, RN) Breath Sounds, Left: Clear and Equal (Aby Chavez, RN) Breath Sounds, Right: Clear and Equal (Aby Chavez, RN) Nausea/Vomiting: Denies (Aby Chavez, RN) RUQ Epigastric Pain: Denies (Aby Chavez, RN) LaborFlag: Antepartum (QS system process) Datetime: 03/01/2017 14:45 NBP Sys/Monica/Mean (mmHg): 148 (QS system process) : 106 (QS system process) : 123 (QS system process) Pulse: 81 (QS system process) LaborFlag: Antepartum (QS system process) Datetime: 03/01/2017 14:30 NBP Sys/Monica/Mean (mmHg): 146 (QS system process) : 105 (QS system process) : 121 (QS system process) Pulse: 78 (QS system process) Monitor Mode: External; Palpation (Aby Chavez RN) Frequency (min): Occ (Aby Chavez RN) Quality: Mild (Aby Chavez RN) Duration (sec): 30-40 (Aby Chavez RN) Resting Tone (Palpate): Relaxed (Aby Chavez RN) Monitor Mode: External US (Aby Chavez RN) FHR Baseline Rate : 145 (Aby Chavez RN) Variability: Moderate 6-25 bpm (Aby Chavez, RN) Accelerations: 15X15 (Aby Chavez, RN) Decelerations: None (Aby Chavez RN) LaborFlag: Antepartum (QS system process) Datetime: 03/01/2017 14:15 NBP Sys/Monica/Mean (mmHg): 140 (QS system process) : 100 (QS system process) : 116 (QS system process) Pulse: 71 (QS system process) Respirations: 16 (Aby Chavez RN) LaborFlag: Antepartum (QS system process) Datetime: 03/01/2017 14:00 Monitor Mode: External; Palpation (Aby Chavez RN) Frequency (min): 0 (Aby Chavez RN) Resting Tone (Palpate): Relaxed (Aby Chavez RN) Monitor Mode: External US (Aby Chavez RN) FHR Baseline Rate : 155 (Aby Chavez RN) Variability: Moderate 6-25 bpm (Aby Chavez RN) Accelerations: 15X15 (Aby Chavez RN) Decelerations: None (Aby Chavez RN) Level of Consciousness: Fully Conscious (Aby Chavez RN) DTR's/Clonus: DTRs 1+; No Clonus (Aby Chavez RN) Headache: Denies (Aby Chavez RN) Breath Sounds, Left: Clear and Equal (Aby Chavez RN) Breath Sounds, Right: Clear and Equal (Aby Chavez RN) Nausea/Vomiting: Denies (Aby Chavez RN) RUQ Epigastric Pain: Denies (Aby Scott, RN) Patient Position/Activity: Semi-Fowlers (Aby Chavez, RN) Datetime: 03/01/2017 13:46 NBP Sys/Monica/Mean (mmHg): 135 (QS system process) : 87 (QS system process) : 106 (QS system process) Pulse: 84 (QS system process) Respirations: 18 (Aby Chavez, RN) LaborFlag: Antepartum (QS system process) Datetime: 03/01/2017 13:40 NBP Sys/Monica/Mean (mmHg): 134 (QS system process) : 79 (QS system process) : 102 (QS system process) Pulse: 80 (QS system process) Respirations: 16 (Aby Chavez, RN) LaborFlag: Antepartum (QS system process) Datetime: 03/01/2017 13:35 NBP Sys/Monica/Mean (mmHg): 133 (QS system process) : 80 (QS system process) : 101 (QS system process) Pulse: 72 (QS system process) Respirations: 18 (Aby Chavez RN) LaborFlag: Antepartum (QS system process) Datetime: 03/01/2017 13:30 NBP Sys/Monica/Mean (mmHg): 138 (QS system process) : 85 (QS system process) : 106 (QS system process) Pulse: 68 (QS system process) Respirations: 16 (Aby Chavez RN) Monitor Mode: External; Palpation (Aby Chavez RN) Frequency (min): 0 (Aby Chavez RN) Resting Tone (Palpate): Relaxed (Aby Chavez RN) Monitor Mode: External US (Aby Chavez RN) FHR Baseline Rate : 155 (Aby Chavez RN) Variability: Moderate 6-25 bpm (Aby Chavez RN) Accelerations: 15X15 (Aby Chavez RN) Decelerations: None (Aby Chavez RN) Magnesium/Antihypertensives: Magnesium Sulfate IV Loading (Gm) @ 4grams over 20min (Aby Chavez RN) LaborFlag: Antepartum (QS system process) Datetime: 03/01/2017 13:24 Patient Position/Activity: Right Lateral (Aby Chavez RN) Datetime: 03/01/2017 13:18 Pain Scale: 2 (Aby Chavez RN) Pain Presence: Constant (Aby Chavez RN) Pain Type: Dull (Aby Chavez RN) Pain Location: Head (Aby Chavez RN) Pain Relief Measures: Pain Medication Given; Comfort Measures (Aby Chavez RN) Analgesics/Sedatives: Tylenol (mg) @ 975mg PO for KOO (Aby Chavez RN) LaborFlag: Antepartum (QS system process) Datetime: 03/01/2017 13:03 NBP Sys/Monica/Mean (mmHg): 143 (QS system process) : 85 (QS system process) : 109 (QS system process) Pulse: 63 (QS system process) Respirations: 18 (Aby Scott, RN) LaborFlag: Antepartum (QS system process) Datetime: 03/01/2017 13:00 Monitor Mode: External; Palpation (Aby Scott, RN) Frequency (min): 0 (Aby Scott, RN) Resting Tone (Palpate): Relaxed (Aby Scott, RN) Monitor Mode: External US (Aby Scott, RN) FHR Baseline Rate : 155 (Aby Scott, RN) Variability: Moderate 6-25 bpm (Aby Scott, RN) Accelerations: 15X15 (Aby Scott, RN) Decelerations: None (Aby Scott, RN) Patient Position/Activity: Left Lateral (Aby Scott, RN) Datetime: 03/01/2017 12:58 Cervical Ripening Agents: Cervidil (Aby Scott, RN) Medication Comments: Placed by Dr Swan (Aby Chavez, RN) Datetime: 03/01/2017 12:57 Communication Comments: Dr Swan at bedside (Aby Chavez, RN) Datetime: 03/01/2017 12:44 NBP Sys/Monica/Mean (mmHg): 161 (QS system process) : 95 (QS system process) : 121 (QS system process) Pulse: 81 (QS system process) Respirations: 18 (Aby Chavez RN) LaborFlag: Antepartum (QS system process) Datetime: 03/01/2017 12:37 Pulse: 79 (QS system process) SpO2 (%): 91 (QS system process) LaborFlag: Antepartum (QS system process) Datetime: 03/01/2017 12:32 Pulse: 74 (QS system process) SpO2 (%): 88 (QS system process) LaborFlag: Antepartum (QS system process) Datetime: 03/01/2017 12:30 Monitor Mode: External; Palpation (Aby Chavez, RN) Frequency (min): 0 (Aby Chavez, RN) Resting Tone (Palpate): Relaxed (Aby Chavez, RN) Monitor Mode: External US (Aby Chavez RN) FHR Baseline Rate : 155 (Aby Chavez RN) Variability: Moderate 6-25 bpm (Abyjennyfer Chavez, RN) Accelerations: 15X15 (Abyjennyfer Chavez, RN) Decelerations: None (Aby Scott, RN) Datetime: 03/01/2017 12:29 NBP Sys/Monica/Mean (mmHg): 140 (QS system process) : 88 (QS system process) : 108 (QS system process) Pulse: 75 (QS system process) Respirations: 16 (Aby Chavez RN) LaborFlag: Antepartum (QS system process) Datetime: 03/01/2017 12:27 Pulse: 73 (QS system process) SpO2 (%): 92 (QS system process) LaborFlag: Antepartum (QS system process) Datetime: 03/01/2017 12:22 Pulse: 76 (QS system process) SpO2 (%): 94 (QS system process) LaborFlag: Antepartum (QS system process) Datetime: 03/01/2017 12:19 SpO2 (%): 84 (QS system process) LaborFlag: Antepartum (QS system process) Datetime: 03/01/2017 12:17 Pulse: 77 (QS system process) SpO2 (%): 100 (QS system process) LaborFlag: Antepartum (QS system process) Datetime: 03/01/2017 12:14 NBP Sys/Monica/Mean (mmHg): 146 (QS system process) : 94 (QS system process) : 113 (QS system process) Pulse: 74 (QS system process) Respirations: 16 (Aby Chavez RN) LaborFlag: Antepartum (QS system process) Datetime: 03/01/2017 12:12 Pulse: 72 (QS system process) SpO2 (%): 100 (QS system process) LaborFlag: Antepartum (QS system process) Datetime: 03/01/2017 12:11 Pulse: 78 (QS system process) SpO2 (%): 93 (QS system process) LaborFlag: Antepartum (QS system process) Datetime: 03/01/2017 12:07 Pulse: 82 (QS system process) SpO2 (%): 98 (QS system process) IV/Blood Work: IV Started (Aby Chavez RN) LaborFlag: Antepartum (QS system process) Datetime: 03/01/2017 12:02 Pulse: 84 (QS system process) SpO2 (%): 97 (QS system process) LaborFlag: Antepartum (QS system process) Datetime: 03/01/2017 12:00 Monitor Mode: External; Palpation (Aby Chavez RN) Frequency (min): Occ (Aby Chavez RN) Quality: Mild (Aby Chavez RN) Duration (sec): 40 (Aby Chavez RN) Resting Tone (Palpate): Relaxed (Aby Chavez RN) Monitor Mode: External US (Aby Chavez RN) FHR Baseline Rate : 155 (Aby Chavez RN) Variability: Minimal - Undetectable to <=5 bpm (Aby Chavez RN) Decelerations: Prolonged (Aby Chavez RN) Datetime: 03/01/2017 11:59 NBP Sys/Monica/Mean (mmHg): 138 (QS system process) : 93 (QS system process) : 111 (QS system process) Pulse: 71 (QS system process) Respirations: 16 (Aby Chavez RN) IV/Blood Work: IV Bolus Given ml @ 500; IV Infusing per Order; New IV Bag Hung (Aby Chavez RN) LaborFlag: Antepartum (QS system process) Datetime: 03/01/2017 11:57 Pulse: 74 (QS system process) SpO2 (%): 96 (QS system process) LaborFlag: Antepartum (QS system process) Datetime: 03/01/2017 11:52 Pulse: 72 (QS system process) SpO2 (%): 95 (QS system process) LaborFlag: Antepartum (QS system process) Datetime: 03/01/2017 11:47 Pulse: 74 (QS system process) SpO2 (%): 96 (QS system process) LaborFlag: Antepartum (QS system process) Datetime: 03/01/2017 11:45 Patient Position/Activity: Right Lateral (Aby Scott, RN) Datetime: 03/01/2017 11:43 NBP Sys/Monica/Mean (mmHg): 161 (QS system process) : 105 (QS system process) : 128 (QS system process) Pulse: 68 (QS system process) Respirations: 18 (Aby Chavez RN) Temperature (F): 99.5 (Aby Chavez RN) Temperature (C): 37.5 (QS system process) LaborFlag: Antepartum (QS system process) Datetime: 02/28/2017 16:11 LaborFlag: Antepartum (QS system process) Datetime: 02/28/2017 15:51 LaborFlag: Antepartum (QS system process) Datetime: 02/28/2017 15:31 LaborFlag: Antepartum (QS system process) Datetime: 02/28/2017 15:11 LaborFlag: Antepartum (QS system process) Datetime: 02/28/2017 14:51 LaborFlag: Antepartum (QS system process) Datetime: 02/28/2017 14:31 LaborFlag: Antepartum (QS system process) Datetime: 02/28/2017 14:11 LaborFlag: Antepartum (QS system process) Datetime: 02/28/2017 13:51 LaborFlag: Antepartum (QS system process) Datetime: 02/28/2017 13:31 LaborFlag: Antepartum (QS system process) Datetime: 02/28/2017 13:14 LaborFlag: Antepartum (QS system process) Datetime: 02/28/2017 12:51 LaborFlag: Antepartum (QS system process) Datetime: 02/28/2017 12:31 LaborFlag: Antepartum (QS system process) Datetime: 02/28/2017 12:11 LaborFlag: Antepartum (QS system process) Datetime: 02/28/2017 11:51 LaborFlag: Antepartum (QS system process) Datetime: 02/28/2017 11:31 LaborFlag: Antepartum (QS system process) Datetime: 02/28/2017 11:17 LaborFlag: Antepartum (QS system process) Datetime: 02/28/2017 11:10 LaborFlag: Antepartum (QS system process) Datetime: 02/28/2017 10:59 LaborFlag: Antepartum (QS system process) Datetime: 02/28/2017 10:57 LaborFlag: Antepartum (QS system process) Datetime: 02/20/2017 04:01 LaborFlag: Antepartum (QS system process) Datetime: 02/17/2017 14:18 LaborFlag: Antepartum (QS system process) Datetime: 02/17/2017 14:05 LaborFlag: Antepartum (QS system process) Datetime: 02/17/2017 13:48 LaborFlag: Antepartum (QS system process) Datetime: 02/17/2017 13:34 LaborFlag: Antepartum (QS system process) Datetime: 02/17/2017 13:18 LaborFlag: Antepartum (QS system process) Datetime: 02/17/2017 13:04 LaborFlag: Antepartum (QS system process) Datetime: 02/17/2017 12:52 LaborFlag: Antepartum (QS system process) Datetime: 02/17/2017 12:48 Temperature (C): 36.7 (QS system process) LaborFlag: Antepartum (QS system process) Datetime: 02/16/2017 07:59 LaborFlag: Antepartum (QS system process) Datetime: 02/16/2017 07:29 LaborFlag: Antepartum (QS system process) Datetime: 02/16/2017 06:59 LaborFlag: Antepartum (QS system process) Datetime: 02/16/2017 06:36 LaborFlag: Antepartum (QS system process) Datetime: 02/16/2017 06:29 LaborFlag: Antepartum (QS system process) Datetime: 02/16/2017 05:59 LaborFlag: Antepartum (QS system process) Datetime: 02/16/2017 05:54 Temperature (C): 36.7 (QS system process) LaborFlag: Antepartum (QS system process) Datetime: 02/06/2017 20:46 Membranes Ruptured Date/Time: 03/01/2017 17:35 (Aby Chavez RN) Membranes Rupture Method: Artificial (Aby Chavez RN) Amniotic Fluid Color: Clear (Aby Chavez RN) Amniotic Fluid Amount: Large (Aby Chavez RN) Amniotic Fluid Odor: Normal (Aby Chavez RN)
--- NOTE | 2017-03-01 20:59 | Delivery Summary ---
Del Sum A-C Datetime Report Generated by CPN: 03/01/2017 20:59 DELIVERY PERSONNEL DELIVERY PERSONNEL: [id number] Delivery Doctor:: Pearl Swan MD Labor and Delivery Nurse:: Aby Chavez RNvolumetric weigher Nurse:: Agnes Bernal RN Puff Iron Operator:: Colaccfrantz Nursery Nurse:: Lisbeth Paulino RN Integrity Analyst/RECRUITMENT ADVERTISING MANAGER: Hayder Lugo PAYROLL AND BENEFITS COORDINATOR Integrity Analyst/RECRUITMENT ADVERTISING MANAGER: Lesvia Odell, PAYROLL AND BENEFITS COORDINATOR MATERNAL INFORMATION Delivery Anesthesia: Spinal Maternal Complications: Other Other Maternal Complications: Severe Preeclampsia LABOR SUMMARY EDC: 04/08/2017 00:00 No. Babies in Womb: 1 Attempted: No Labor Anesthesia: None LABOR INFORMATION Reason for Induction: Pre-Eclampsia Cervical Ripening Agents: Cervidil Oxytocin: N/A Group B Beta Strep: Unknown Antibiotics # of Doses: 0 Steroids Given: None Reason Steroids Not Administered: Not Applicable MEMBRANES Membranes Rupture Method: Artificial Rupture of Membranes: 03/01/2017 17:35 Length of Rupture (hr): 0.02 Amniotic Fluid Color: Clear Amniotic Fluid Amount: Large Amniotic Fluid Odor: Normal STAGES OF LABOR Stage 3 hr: 0 Stage 3 min: 2 VAGINAL DELIVERY Episiotomy: None Laceration Extension: N/A Laceration Type: None Laceration Repair: Not Applicable Sponge Count Correct: N/A Sharps Count Correct: N/A CSECTION DELIVERY Primary Indication: Severe PIH, Unfavorable Cervix CSection Urgency: Non-Scheduled CSection Incidence: Primary Labor: No Labor Elective: Elective CSection Incision: Lower Uterine Transverse BABY A INFORMATION Infant Delivery Date/Time: 03/01/2017 17:36 Method of Delivery: Born in Route : No : N/A Forceps: N/A Vacuum Extraction: N/A Shoulder Dystocia : No PRESENTATION/POSITION BABY A Presentation: Cephalic Cephalic Presentation: Vertex Vertex Position: Left Occipital Anterior Breech Presentation: N/A PLACENTA INFORMATION BABY A Placenta Delivery Time : 03/01/2017 17:38 Placenta Method of Delivery: Manual Removal Placenta Status: Delivered SCORES BABY A Heart Rate 1 min: >100 bpm Resp Effort 1 min: Good Cry Reflex Irritability 1 min: Cough or Sneeze or Pulls Away Muscle Tone 1 min: Active Motion Color 1 min: Blue/Pale Resuscitation Effort 1 min: Tactile Stimulation SCORE 1 MIN: 8 Heart Rate 5 min: >100 bpm Resp Effort 5 min: Good Cry Reflex Irritability 5 min: Cough or Sneeze or Pulls Away Muscle Tone 5 min: Active Motion Color 5 min: Body Centre Hall, Extremities Blue Resuscitation Effort 5 min: Tactile Stimulation SCORE 5 MIN: 9 INFANT INFORMATION BABY A Gestational Age at Delivery: 34.4 Gestational Status: Late - 34- 36.6 Weeks Outcome : Liveborn Infant Condition : Stable Sex: Female IDENTIFICATION BABY A Verification Date/Time: 03/01/2017 18:40 ID Band Number: [id number] Mother's Name Verified: Yes RN Verifying Infant: Benny Chavez RN Additional Verifying Personnel: Mook Bernal RN WEIGHT/LENGTH BABY A Infant Birthweight (gm): 2178 Weight (lb): 4 Weight (oz): 13 Infant Length (in): 16.75 Infant Length (cm): 42.55 CORD INFORMATION BABY A No. Cord Vessels: 3 Nuchal Cord : Around Neck x1, Loose Cord Blood Taken: Yes-For Eval (Mom's Blood Type - or O+) Suction: Mouth; Nose ASSESSMENT BABY A Infant Complications: Other Infant Complications- Other: Physical Findings at Delivery: Within Normal Limits Infant Respirations: Appears Normal Skin to Skin: No Puff Iron Operator/ALS Called : Yes Care By: Yasmeen Paulino RN Transferred To: NICU BABY B INFORMATION : N/A
[2017-03-01] MEDS ORDERED: HYDROMORPHONE HCL INJ/PF 2 MG/ML AMPULE ONE (22:17)
[2017-03-01] MEDS: HYDROMORPHONE HCL INJ/PF 2 MG/ML AMPULE IV PRN (22:17)
[2017-03-02] MEDS: MAGNESIUM SULFATE 500 ML IV PRN ×2 (00:19→10:54)
[2017-03-02] MEDS ORDERED: HYDROMORPHONE HCL INJ/PF 2 MG/ML AMPULE ONE ×2 (01:55→08:06)
[2017-03-02] MEDS: HYDROMORPHONE HCL INJ/PF 2 MG/ML AMPULE IV PRN ×2 (01:56→08:08)
[2017-03-02] MEDS ORDERED: ACETAMINOPHEN 100 ML IV ONE (05:50)
[2017-03-02] MEDS ORDERED: ACETAMINOPHEN 100 ML IV SCH ×2 (06:15)
[2017-03-02 06:39] LABS: ABSOLUTE BASOPHILS # (AUTO) 0.1 10^3/uL (0.0-0.2); ABSOLUTE LYMPHOCYTES (AUTO) 2.3 10^3/uL (0.5-4.7); ABSOLUTE MONOCYTES (AUTO) 0.8 10^3/uL (0.1-1.4); ABSOLUTE NEUT (AUTO) 10.5 10^3/uL (1.7-8.2); ALANINE AMINOTRANSFERASE 20 U/L (9-52); ALBUMIN 2.1 g/dL (3.5-5.0); ALKALINE PHOSPHATASE 135 U/L (38-126); ANION GAP 5 (5-19); ASPARTATE AMINO TRANSFERASE 18 U/L (14-36); BASOPHILS % (AUTO) 0.4 % (0-2); BILIRUBIN,TOTAL 0.6 mg/dL (0.2-1.3); BLOOD UREA NITROGEN 12 mg/dL (7-20); CALCIUM 7.8 mg/dL (8.4-10.2); CARBON DIOXIDE 22 mmol/L (22-30); CHLORIDE 107 mmol/L (98-107); CREATININE RESULT 0.85 mg/dL (0.52-1.25); EOSINOPHILS % (AUTO) 0.1 % (0-6); GLUCOSE 80 mg/dL (75-110); HEMATOCRIT 40.6 % (36.0-47.0); HGB HCT DIFFERENCE 1.7; LDH 672 U/L (313-618); LYMPHOCYTES % (AUTO) 16.7 % (13-45); MEAN CORPUSCULAR HEMOGLOBIN 29.1 pg (27.0-33.4); MEAN CORPUSCULAR HGB CONC 34.7 g/dL (32.0-36.0); MEAN CORPUSCULAR VOLUME 84 fl (80-97); MONOCYTES % (AUTO) 5.8 % (3-13); POTASSIUM 4.2 mmol/L (3.6-5.0); RED BLOOD COUNT 4.83 10^6/uL (3.72-5.28); RED CELL DISTRIBUTION WIDTH 12.8 % (11.5-14.0); SODIUM 134.4 mmol/L (137-145); TOTAL PROTEIN 4.3 g/dL (6.3-8.2); URIC ACID 7.7 mg/dL (2.5-6.2); WHITE BLOOD COUNT 13.7 10^3/uL (4.0-10.5)
[2017-03-02 06:44] LABS: HEMOGLOBIN 14.1 g/dL (12.0-15.5)
[2017-03-02 06:49] LABS: MAGNESIUM 5.4 mg/dL (1.6-2.3)
--- NOTE | 2017-03-02 06:55 | L&D Progress Notes ---
PROGRESS NOTES Datetime Report Generated by CPN: 03/02/2017 06:55 PROGRESS NOTE Impression: Gest. HTN/PreEclampsia/Eclampsia Impression Other: s/p Plan Other: cont magnesium Comment: Pt without complaints-feeling better since delivery. UO now 125 cc/hr last hour. BPs mild range. Fundus firm. Labs improving. Continue magnesium seizure prophylaxis. FETUS C SIGNATURE: [id number] SIGNATURE: [id number] Signature: with User ID: [email or web address]
--- NOTE | 2017-03-02 08:00 | L&D Flow Sheet ---
LD Flowsheet Datetime Report Generated by CPN: 03/02/2017 08:00 Datetime: 03/02/2017 07:45 NBP Sys/Monica/Mean (mmHg): 154 (QS system process) : 105 (QS system process) : 125 (QS system process) Pulse: 90 (QS system process) Datetime: 03/02/2017 07:30 NBP Sys/Monica/Mean (mmHg): 154 (QS system process) : 103 (QS system process) : 122 (QS system process) Pulse: 98 (QS system process) Datetime: 03/02/2017 07:15 Stage of : Recovery (Karen Welsh RN) NBP Sys/Monica/Mean (mmHg): 154 (QS system process) : 102 (QS system process) : 123 (QS system process) Pulse: 93 (QS system process) Datetime: 03/02/2017 07:00 Stage of : Recovery (Karen Welsh RN) NBP Sys/Monica/Mean (mmHg): 153 (QS system process) : 100 (QS system process) : 122 (QS system process) Pulse: 97 (QS system process) Respirations: 18 (Karen Welsh RN) Pain Scale: 0 (Karen Welsh RN) Pain Presence: None/Denies (Karen Welsh RN) Pain Type: N/A (Karen Welsh RN) Datetime: 03/02/2017 06:45 Stage of : Recovery (Karen Welsh RN) NBP Sys/Monica/Mean (mmHg): 149 (QS system process) : 100 (QS system process) : 118 (QS system process) Pulse: 96 (QS system process) Pain Scale: 0 (Karen Welsh RN) Pain Presence: None/Denies (Karen Welsh RN) Pain Type: N/A (Karen Welsh RN) Datetime: 03/02/2017 06:30 NBP Sys/Monica/Mean (mmHg): 148 (QS system process) : 94 (QS system process) : 116 (QS system process) Pulse: 95 (QS system process) Datetime: 03/02/2017 06:15 Stage of : Recovery (Karen Welsh RN) NBP Sys/Monica/Mean (mmHg): 155 (QS system process) : 99 (QS system process) : 122 (QS system process) Pulse: 94 (QS system process) Respirations: 18 (Karen Welsh RN) Pain Scale: 2 (Karen Welsh RN) Pain Presence: Constant (Karen Welsh RN) Pain Type: Ache (Karen Welsh RN) Pain Location: Abdomen (Karen Welsh RN) Pain Goal: 2 (Karen Welsh RN) Pain Relief Measures: Pain Medication Given (Karen Welsh RN) Datetime: 03/02/2017 06:00 Stage of : Recovery (Karen Welsh RN) NBP Sys/Monica/Mean (mmHg): 151 (QS system process) : 97 (QS system process) : 116 (QS system process) Pulse: 104 (QS system process) Respirations: 18 (Karen Welsh RN) Pain Scale: 2 (Karen Welsh RN) Pain Presence: Constant (Karen Welsh RN) Pain Type: Ache (Karen Welsh RN) Pain Location: Abdomen (Karen Welsh RN) Pain Goal: 2 (Karen Welsh RN) Level of Consciousness: Fully Conscious (Karen Welsh RN) DTR's/Clonus: DTRs 1+; No Clonus (Rucsandra Blaise, RN) Headache: Denies (Jenandra Blaise, RN) Breath Sounds, Left: Clear and Equal (Rukhloeandra Blaise, RN) Breath Sounds, Right: Clear and Equal (Rukhloeandra Blaise, RN) Nausea/Vomiting: Denies (Rukhloeandra Blaise, RN) RUQ Epigastric Pain: Denies (Jenandra Welsh, RN) Datetime: 03/02/2017 05:45 NBP Sys/Monica/Mean (mmHg): 144 (QS system process) : 94 (QS system process) : 111 (QS system process) Pulse: 85 (QS system process) Datetime: 03/02/2017 05:30 NBP Sys/Monica/Mean (mmHg): 143 (QS system process) : 88 (QS system process) : 111 (QS system process) Pulse: 83 (QS system process) Datetime: 03/02/2017 05:15 NBP Sys/Monica/Mean (mmHg): 138 (QS system process) : 86 (QS system process) : 106 (QS system process) Pulse: 87 (QS system process) Datetime: 03/02/2017 05:00 Stage of : Recovery (Karen Welsh RN) NBP Sys/Monica/Mean (mmHg): 142 (QS system process) : 86 (QS system process) : 109 (QS system process) Pulse: 87 (QS system process) Temperature (F): 97.7 (Karen Welsh RN) Temperature (C): 36.5 (QS system process) Pain Scale: 0 (Karen Welsh RN) Pain Presence: None/Denies (Karen Welsh RN) Pain Type: N/A (Karen Welsh RN) Level of Consciousness: Fully Conscious (Karen Welsh RN) DTR's/Clonus: DTRs 1+; No Clonus (Karen Welsh RN) Headache: Denies (Karen Welsh RN) Breath Sounds, Left: Clear and Equal (Karen Welsh RN) Breath Sounds, Right: Clear and Equal (Karen Welsh RN) Nausea/Vomiting: Denies (Rucsandra Blaise, RN) RUQ Epigastric Pain: Denies (Rucsandra Blaise, RN) Datetime: 03/02/2017 04:45 NBP Sys/Monica/Mean (mmHg): 146 (QS system process) : 89 (QS system process) : 112 (QS system process) Pulse: 92 (QS system process) Datetime: 03/02/2017 04:30 NBP Sys/Monica/Mean (mmHg): 143 (QS system process) : 88 (QS system process) : 109 (QS system process) Pulse: 90 (QS system process) Datetime: 03/02/2017 04:15 NBP Sys/Monica/Mean (mmHg): 137 (QS system process) : 88 (QS system process) : 107 (QS system process) Pulse: 85 (QS system process) Datetime: 03/02/2017 04:00 Stage of : Recovery (Karen Welsh, RN) NBP Sys/Monica/Mean (mmHg): 149 (QS system process) : 89 (QS system process) : 113 (QS system process) Pulse: 96 (QS system process) Pain Scale: 0 (Karen Welsh RN) Pain Presence: None/Denies (Karen Welsh, RN) Pain Type: N/A (Karen Welsh, RN) Level of Consciousness: Fully Conscious (Karen Welsh, RN) DTR's/Clonus: DTRs 1+; No Clonus (Karen Welsh, RN) Headache: Denies (Treycspower Welsh, RN) Breath Sounds, Left: Clear and Equal (Treycsandra Welsh, RN) Breath Sounds, Right: Clear and Equal (Treycsandra Welsh, RN) Nausea/Vomiting: Denies (Karen Welsh, RN) RUQ Epigastric Pain: Denies (Treycsandra Blaise, RN) Datetime: 03/02/2017 03:45 NBP Sys/Monica/Mean (mmHg): 140 (QS system process) : 86 (QS system process) : 106 (QS system process) Pulse: 81 (QS system process) Datetime: 03/02/2017 03:30 NBP Sys/Monica/Mean (mmHg): 156 (QS system process) : 96 (QS system process) : 120 (QS system process) Pulse: 94 (QS system process) Datetime: 03/02/2017 03:15 NBP Sys/Monica/Mean (mmHg): 149 (QS system process) : 91 (QS system process) : 112 (QS system process) Pulse: 90 (QS system process) Datetime: 03/02/2017 03:01 Stage of : Recovery (Rukhloeandra Welsh, RN) NBP Sys/Monica/Mean (mmHg): 148 (QS system process) : 92 (QS system process) : 114 (QS system process) Pulse: 89 (QS system process) Respirations: 18 (Rucsandra Welsh, RN) Pain Scale: 0 (Rucsandra Welsh, RN) Pain Presence: None/Denies (Rucsandra Welsh, RN) Pain Type: N/A (Rucsandra Blaise, RN) Datetime: 03/02/2017 03:00 Level of Consciousness: Fully Conscious (Rucsandra Welsh, RN) DTR's/Clonus: DTRs 1+; No Clonus (Rucsandra Welsh, RN) Headache: Denies (Rucsandra Welsh, RN) Breath Sounds, Left: Clear and Equal (Rucsandra Blaise, RN) Breath Sounds, Right: Clear and Equal (Rucsandra Blaise, RN) Nausea/Vomiting: Denies (Rucsandra Welsh, RN) RUQ Epigastric Pain: Denies (Rucsandra Blaise, RN) Datetime: 03/02/2017 02:46 Stage of : Recovery (Jenandra Welsh, RN) NBP Sys/Monica/Mean (mmHg): 156 (QS system process) : 88 (QS system process) : 116 (QS system process) Pulse: 104 (QS system process) Datetime: 03/02/2017 02:31 NBP Sys/Monica/Mean (mmHg): 160 (QS system process) : 92 (QS system process) : 120 (QS system process) Pulse: 98 (QS system process) Datetime: 03/02/2017 02:16 Stage of : Recovery (Karen Welsh, RN) NBP Sys/Monica/Mean (mmHg): 147 (QS system process) : 92 (QS system process) : 112 (QS system process) Pulse: 87 (QS system process) Pain Scale: 0 (Karen Welsh, RN) Pain Presence: None/Denies (Rumarc Welsh, RN) Pain Type: N/A (Rucsandra Blaise, RN) Datetime: 03/02/2017 02:01 Stage of : Recovery (Karen Welsh, RN) NBP Sys/Monica/Mean (mmHg): 149 (QS system process) : 90 (QS system process) : 114 (QS system process) Pulse: 90 (QS system process) Respirations: 18 (Karen Welsh, RN) Pain Scale: 4 (Karen Welsh, RN) Pain Presence: Constant (Rumarc Welsh, RN) Pain Type: Ache (Rucsandra Welsh, RN) Pain Location: Abdomen (Rucsandra Welsh, RN) Pain Goal: 2 (Rucsandra Blaise, RN) Datetime: 03/02/2017 02:00 Level of Consciousness: Fully Conscious (Rucsandra Blaise, RN) DTR's/Clonus: DTRs 1+; No Clonus (Rucsandra Blaise, RN) Headache: Denies (Rucsandra Blaise, RN) Breath Sounds, Left: Clear and Equal (Rucsandra Blaise, RN) Breath Sounds, Right: Clear and Equal (Rucsandra Blaise, RN) Nausea/Vomiting: Denies (Rucsandra Blaise, RN) RUQ Epigastric Pain: Denies (Rucsandra Blaise, RN) Datetime: 03/02/2017 01:56 Stage of : Recovery (Rucsandra Blaise, RN) Pain Scale: 4 (Rucsandra Blaise, RN) Pain Presence: Constant (Rucsandra Blaise, RN) Pain Type: Ache (Rucsandra Blaise, RN) Pain Location: Abdomen (Rucsandra Blaise, RN) Pain Goal: 2 (Rucsandra Blaise, RN) Pain Relief Measures: Pain Medication Given (Rucsandra Blaise, RN) Datetime: 03/02/2017 01:52 Stage of : Recovery (Karen Hdzahan, RN) Pain Scale: 4 (Treycsandra Welsh, RN) Pain Presence: Constant (Treycsandra Welsh, RN) Pain Type: Ache (Treycsandra Blaise, RN) Pain Location: Abdomen (Treycsandra Blaise, RN) Pain Goal: 2 (Rucsandra Welsh, RN) Pain Relief Measures: pt requesting pain medication. (Rucsandra Blaise, RN) Datetime: 03/02/2017 01:46 NBP Sys/Monica/Mean (mmHg): 151 (QS system process) : 91 (QS system process) : 113 (QS system process) Pulse: 86 (QS system process) Datetime: 03/02/2017 01:31 NBP Sys/Monica/Mean (mmHg): 153 (QS system process) : 89 (QS system process) : 115 (QS system process) Pulse: 90 (QS system process) Datetime: 03/02/2017 01:16 NBP Sys/Monica/Mean (mmHg): 143 (QS system process) : 86 (QS system process) : 107 (QS system process) Pulse: 86 (QS system process) Datetime: 03/02/2017 01:01 Stage of : Recovery (Karen Welsh RN) NBP Sys/Monica/Mean (mmHg): 142 (QS system process) : 86 (QS system process) : 108 (QS system process) Pulse: 90 (QS system process) Respirations: 18 (Karen Welsh RN) Pain Scale: 0 (Karen Welsh RN) Pain Presence: None/Denies (Karen Welsh RN) Pain Type: N/A (Karen Welsh RN) Datetime: 03/02/2017 01:00 Level of Consciousness: Fully Conscious (Rucsandra Blaise, RN) DTR's/Clonus: DTRs 1+; No Clonus (Rucsandra Blaise, RN) Headache: Denies (Rucsandra Blaise, RN) Breath Sounds, Left: Clear and Equal (Rucsandra Blaise, RN) Breath Sounds, Right: Clear and Equal (Rucsandra Blaise, RN) Nausea/Vomiting: Denies (Rucsandra Blaise, RN) RUQ Epigastric Pain: Denies (Rucsandra Blaise, RN) Datetime: 03/02/2017 00:46 NBP Sys/Monica/Mean (mmHg): 142 (QS system process) : 91 (QS system process) : 111 (QS system process) Pulse: 94 (QS system process) Datetime: 03/02/2017 00:31 NBP Sys/Monica/Mean (mmHg): 137 (QS system process) : 91 (QS system process) : 110 (QS system process) Pulse: 86 (QS system process) Datetime: 03/02/2017 00:20 Stage of : Recovery (Rucsandra Blaise, RN) Datetime: 03/02/2017 00:16 NBP Sys/Monica/Mean (mmHg): 144 (QS system process) : 92 (QS system process) : 114 (QS system process) Pulse: 98 (QS system process) Datetime: 03/02/2017 00:05 Stage of : Recovery (Karen Welsh RN) Pain Scale: 1 (Karen Welsh RN) Pain Presence: Constant (Karen Welsh RN) Pain Type: Ache (Karen Welsh RN) Pain Location: Abdomen (Karen Welsh RN) Pain Goal: 2 (Karen Welsh RN) Pain Relief Measures: Pain Medication Given (Karen Welsh RN) Datetime: 03/02/2017 00:01 Stage of : Recovery (Karen Welsh RN) NBP Sys/Monica/Mean (mmHg): 142 (QS system process) : 89 (QS system process) : 111 (QS system process) Pulse: 108 (QS system process) Respirations: 18 (Karen Welsh RN) Temperature (F): 97.5 (Karen Welsh RN) Temperature (C): 36.4 (QS system process) Pain Scale: 1 (Karen Welsh RN) Pain Presence: Constant (Karen Welsh RN) Pain Type: Ache (Karen Welsh RN) Pain Location: Abdomen (Karen Welsh RN) Pain Goal: 2 (Karen Welsh RN) Pain Relief Measures: pt requesting pain meds (Rucsandra Blaise, RN) Datetime: 03/02/2017 00:00 Level of Consciousness: Fully Conscious (Rucsandra Blaise, RN) DTR's/Clonus: DTRs 1+; No Clonus (Rucsandra Blaise, RN) Headache: Denies (Rucsandra Blaise, RN) Breath Sounds, Left: Clear and Equal (Rucsandra Blaise, RN) Breath Sounds, Right: Clear and Equal (Rucsandra Blaise, RN) Nausea/Vomiting: Denies (Rucsandra Blaise, RN) RUQ Epigastric Pain: Denies (Rucsandra Blaise, RN) Datetime: 03/01/2017 23:46 NBP Sys/Monica/Mean (mmHg): 137 (QS system process) : 80 (QS system process) : 101 (QS system process) Pulse: 91 (QS system process) Datetime: 03/01/2017 23:31 NBP Sys/Monica/Mean (mmHg): 146 (QS system process) : 78 (QS system process) : 105 (QS system process) Pulse: 97 (QS system process) Datetime: 03/01/2017 23:16 NBP Sys/Monica/Mean (mmHg): 143 (QS system process) : 79 (QS system process) : 103 (QS system process) Pulse: 94 (QS system process) Datetime: 03/01/2017 23:01 Stage of : Recovery (Karen Welsh RN) NBP Sys/Monica/Mean (mmHg): 143 (QS system process) : 82 (QS system process) : 106 (QS system process) Pulse: 96 (QS system process) Respirations: 18 (Rucsandra Blaise, RN) Pain Scale: 0 (Rucsandra Blaise, RN) Pain Presence: None/Denies (Rucsandra Blaise, RN) Pain Type: N/A (Rucsandra Blaise, RN) Datetime: 03/01/2017 23:00 Level of Consciousness: Fully Conscious (Rucsandra Blaise, RN) DTR's/Clonus: DTRs 1+; No Clonus (Rucsandra Blaise, RN) Headache: Denies (Rucsandra Blaise, RN) Breath Sounds, Left: Clear and Equal (Rucsandra Blaise, RN) Breath Sounds, Right: Clear and Equal (Rucsandra Blaise, RN) Nausea/Vomiting: Denies (Rucsandra Blaise, RN) RUQ Epigastric Pain: Denies (Rucsandra Blaise, RN) Datetime: 03/01/2017 22:46 NBP Sys/Monica/Mean (mmHg): 148 (QS system process) : 85 (QS system process) : 110 (QS system process) Pulse: 102 (QS system process) Datetime: 03/01/2017 22:31 NBP Sys/Monica/Mean (mmHg): 148 (QS system process) : 85 (QS system process) : 109 (QS system process) Pulse: 85 (QS system process) Datetime: 03/01/2017 22:17 Stage of : Recovery (Karen Welsh RN) Pain Scale: 4 (Karen Welsh RN) Pain Presence: Constant (Karen Welsh RN) Pain Type: Ache (Karen Welsh RN) Pain Location: Abdomen (Karen Welsh RN) Pain Goal: 2 (Karen Welsh RN) Pain Relief Measures: Pain Medication Given (Karen Welsh RN) Datetime: 03/01/2017 22:16 NBP Sys/Monica/Mean (mmHg): 163 (QS system process) : 94 (QS system process) : 120 (QS system process) Pulse: 95 (QS system process) Datetime: 03/01/2017 22:01 Stage of : Recovery (Karen Welsh RN) NBP Sys/Monica/Mean (mmHg): 156 (QS system process) : 98 (QS system process) : 119 (QS system process) Pulse: 92 (QS system process) Pain Scale: 2 (Karen Welsh RN) Pain Presence: Constant (Karen Welsh RN) Pain Type: Ache (Karen Welsh RN) Pain Location: Abdomen (Karen Welsh RN) Pain Goal: 2 (Karen Welsh RN) Pain Relief Measures: Comfort Measures (Karen Welsh RN) Datetime: 03/01/2017 22:00 Level of Consciousness: Fully Conscious (Rucsandra Blaise, RN) DTR's/Clonus: DTRs 1+; No Clonus (Rucsandra Blaise, RN) Headache: Denies (Rucsandra Blaise, RN) Breath Sounds, Left: Clear and Equal (Rucsandra Blaise, RN) Breath Sounds, Right: Clear and Equal (Rucsandra Blaise, RN) Nausea/Vomiting: Denies (Rucsandra Blaise, RN) RUQ Epigastric Pain: Denies (Rucsandra Blaise, RN) Datetime: 03/01/2017 21:46 NBP Sys/Monica/Mean (mmHg): 159 (QS system process) : 92 (QS system process) : 120 (QS system process) Pulse: 87 (QS system process) Datetime: 03/01/2017 21:31 NBP Sys/Monica/Mean (mmHg): 156 (QS system process) : 94 (QS system process) : 119 (QS system process) Pulse: 85 (QS system process) Datetime: 03/01/2017 21:30 Stage of : Recovery (Rucsandra Blaise, RN) Datetime: 03/01/2017 21:02 Stage of : Recovery (Rucsandra Blaise, RN) Datetime: 03/01/2017 21:00 Level of Consciousness: Fully Conscious (Rucsandra Blaise, RN) DTR's/Clonus: DTRs 1+; No Clonus (Rucsandra Blaise, RN) Headache: Denies (Rucsandra Blaise, RN) Breath Sounds, Left: Clear and Equal (Rucsandra Blaise, RN) Breath Sounds, Right: Clear and Equal (Rucsandra Blaise, RN) Nausea/Vomiting: Denies (Rucsandra Blaise, RN) RUQ Epigastric Pain: Denies (Rucsandra Blaise, RN) Datetime: 03/01/2017 20:50 Stage of : Recovery (Rucsandra Blaise, RN) Pain Scale: 1 (Rucsandra Blaise, RN) Pain Presence: Constant (Rucsandra Blaise, RN) Pain Type: Dull (Rucsandra Blaise, RN) Pain Location: Abdomen (Rucsandra Blaise, RN) Pain Goal: 2 (Rucsandra Blaise, RN) Datetime: 03/01/2017 20:40 Stage of : Recovery (Rucsandra Blaise, RN) NBP Sys/Monica/Mean (mmHg): 150 (QS system process) : 91 (QS system process) : 115 (QS system process) Pulse: 74 (QS system process) Respirations: 18 (Karen Welsh RN) Temperature (F): 97.5 (Karen Welsh RN) Temperature (C): 36.4 (QS system process) Pain Scale: 3 (Karen Welsh RN) Pain Presence: Constant (Karen Welsh RN) Pain Type: Dull (Karen Welsh RN) Pain Location: Abdomen (Karen Welsh RN) Pain Goal: 2 (Karen Welsh RN) Pain Relief Measures: Pain Medication Given (Karen Welsh RN) Datetime: 03/01/2017 20:37 Pulse: 84 (QS system process) SpO2 (%): 100 (QS system process) Datetime: 03/01/2017 20:26 Pulse: 74 (QS system process) SpO2 (%): 87 (QS system process) Datetime: 03/01/2017 20:25 Stage of : [facility] NBP Sys/Monica/Mean (mmHg): 157 (QS system process) : 98 (QS system process) : 122 (QS system process) Pulse: 73 (QS system process) Pain Scale: 1 (Karen Welsh RN) Pain Presence: Constant ([facility]) Pain Type: Dull (Karen Welsh RN) Pain Location: Abdomen (Treypower Welsh RN) Pain Goal: 2 ([facility], ) Datetime: 03/01/2017 20:22 Pulse: 97 (QS system process) SpO2 (%): 84 (QS system process) Datetime: 03/01/2017 20:20 Pulse: 77 (QS system process) SpO2 (%): 91 (QS system process) Datetime: 03/01/2017 20:12 Pulse: 73 (QS system process) SpO2 (%): 89 (QS system process) Datetime: 03/01/2017 20:09 Stage of : Recovery (Karen Welsh RN) NBP Sys/Monica/Mean (mmHg): 145 (QS system process) : 91 (QS system process) : 112 (QS system process) Pulse: 68 (QS system process) Respirations: 18 (Karen Welsh RN) Pain Scale: 1 (Karen Welsh RN) Pain Presence: Constant (Karen Welsh RN) Pain Type: Ache (Karen Welsh RN) Pain Location: Abdomen (Karen Welsh RN) Pain Goal: 2 (Karen Welsh RN) Pain Relief Measures: Comfort Measures (Karen Welsh RN) Datetime: 03/01/2017 20:07 Pulse: 73 (QS system process) SpO2 (%): 93 (QS system process) SpO2 (%): 75 (QS system process) Datetime: 03/01/2017 20:00 Level of Consciousness: Fully Conscious (Karen Welsh RN) DTR's/Clonus: DTRs 1+; No Clonus (Karen Welsh RN) Headache: Denies (Karen Welsh RN) Breath Sounds, Left: Clear and Equal (Karen Welsh RN) Breath Sounds, Right: Clear and Equal (Karen Welsh RN) Nausea/Vomiting: Denies (Karen Welsh RN) RUQ Epigastric Pain: Denies (Karen Welsh RN)
[2017-03-02] MEDS: RINGERS SOLUTION,LACTATED 1,000 ML IV PRN (09:05)
[2017-03-02] MEDS ORDERED: ONDANSETRON HCL INJ/PF 4 MG/2 ML SDV ONE (10:35)
[2017-03-02] MEDS: DOCUSATE SODIUM 100 MG CAPSULE PO SCH ×2 (10:39→17:33)
[2017-03-02] MEDS: PRENATAL VITAMIN W-O CA NO5/FE FUMARATE/FA CAPSULE PO SCH (10:39)
[2017-03-02] MEDS ORDERED: OXYCODONE HCL IR 5 MG TABLET ONE (11:02)
[2017-03-02] MEDS ORDERED: OXYCODONE-ACETAMINOPHEN 5-325 MG TABLET ONE (14:09)
[2017-03-02] MEDS: OXYCODONE-ACETAMINOPHEN 5-325 MG TABLET PO PRN (14:09)
[2017-03-02] MEDS ORDERED: HYDRALAZINE HCL INJ/PF 20 MG/1 ML SDV IV ONE (17:21)
[2017-03-02] MEDS ORDERED: HYDRALAZINE HCL INJ/PF 20 MG/1 ML SDV ONE (17:25)
[2017-03-02 19:05] LABS: ABSOLUTE LYMPHOCYTES (AUTO) 1.8 10^3/uL (0.5-4.7); ABSOLUTE MONOCYTES (AUTO) 0.5 10^3/uL (0.1-1.4); ABSOLUTE NEUT (AUTO) 8.6 10^3/uL (1.7-8.2); BASOPHILS % (AUTO) 0.3 % (0-2); EOSINOPHILS % (AUTO) 0.3 % (0-6); HEMATOCRIT 41.4 % (36.0-47.0); HEMOGLOBIN 14.4 g/dL (12.0-15.5); HGB HCT DIFFERENCE 1.8; LYMPHOCYTES % (AUTO) 16.1 % (13-45); MEAN CORPUSCULAR HEMOGLOBIN 29.3 pg (27.0-33.4); MEAN CORPUSCULAR HGB CONC 34.8 g/dL (32.0-36.0); MEAN CORPUSCULAR VOLUME 84 fl (80-97); MONOCYTES % (AUTO) 4.5 % (3-13); RED BLOOD COUNT 4.92 10^6/uL (3.72-5.28); RED CELL DISTRIBUTION WIDTH 13.3 % (11.5-14.0); SEGMENTED NEUTROPHILS % (AUTO) 78.8 % (42-78); WHITE BLOOD COUNT 10.9 10^3/uL (4.0-10.5)
[2017-03-02] MEDS ORDERED: BUTALB/ACETAMINOPHEN/CAFFEINE 1 TAB EACH ONE ×2 (19:24→20:48)
[2017-03-02] MEDS ORDERED: SIMETHICONE 80 MG TAB.CHEW ONE (19:25)
[2017-03-02 19:28] LABS: ALBUMIN 2.3 g/dL (3.5-5.0); ANION GAP 8 (5-19); BILIRUBIN,DIRECT 0.1 mg/dL (0.0-0.4); BILIRUBIN,TOTAL 0.7 mg/dL (0.2-1.3); BLOOD UREA NITROGEN 10 mg/dL (7-20); CALCIUM 7.1 mg/dL (8.4-10.2); CARBON DIOXIDE 22 mmol/L (22-30); CHLORIDE 103 mmol/L (98-107); CREATININE RESULT 0.83 mg/dL (0.52-1.25); GLUCOSE 86 mg/dL (75-110); POTASSIUM 4.2 mmol/L (3.6-5.0); TOTAL PROTEIN 4.3 g/dL (6.3-8.2)
[2017-03-02] MEDS ORDERED: BUTALB/ACETAMINOPHEN/CAFFEINE 1 TAB EACH PO ONE ×2 (19:30→21:00)
[2017-03-02] MEDS: SIMETHICONE 80 MG TAB.CHEW PO PRN (19:32)
[2017-03-02 19:37] LABS: ALANINE AMINOTRANSFERASE 21 U/L (9-52); ALKALINE PHOSPHATASE 143 U/L (38-126); ASPARTATE AMINO TRANSFERASE 19 U/L (14-36); LDH 731 U/L (313-618)
[2017-03-02 19:51] LABS: MAGNESIUM 5.9 mg/dL (1.6-2.3)
[2017-03-02] MEDS ORDERED: NIFEDIPINE 30 MG TAB.ER.24 PO ONE ×2 (22:25→22:30)
[2017-03-02] MEDS ORDERED: NIFEDIPINE 30 MG TAB.ER.24 PO SCH (22:30)
[2017-03-03] MEDS ORDERED: HYDROMORPHONE HCL INJ/PF 2 MG/ML AMPULE ONE (04:02)
[2017-03-03] MEDS: HYDROMORPHONE HCL INJ/PF 2 MG/ML AMPULE IV PRN (04:04)
[2017-03-03 07:04] LABS: ABSOLUTE EOSINOPHILS # (AUTO) 0.1 10^3/uL (0.0-0.6); ABSOLUTE LYMPHOCYTES (AUTO) 1.8 10^3/uL (0.5-4.7); ABSOLUTE MONOCYTES (AUTO) 0.6 10^3/uL (0.1-1.4); ABSOLUTE NEUT (AUTO) 9.5 10^3/uL (1.7-8.2); BASOPHILS % (AUTO) 0.4 % (0-2); EOSINOPHILS % (AUTO) 0.8 % (0-6); HEMATOCRIT 39.6 % (36.0-47.0); HEMOGLOBIN 13.7 g/dL (12.0-15.5); HGB HCT DIFFERENCE 1.5; MEAN CORPUSCULAR HGB CONC 34.5 g/dL (32.0-36.0); MEAN CORPUSCULAR VOLUME 84 fl (80-97); MONOCYTES % (AUTO) 5.1 % (3-13); RED BLOOD COUNT 4.71 10^6/uL (3.72-5.28); RED CELL DISTRIBUTION WIDTH 12.9 % (11.5-14.0); SEGMENTED NEUTROPHILS % (AUTO) 78.7 % (42-78); WHITE BLOOD COUNT 12.1 10^3/uL (4.0-10.5)
[2017-03-03 07:25] LABS: ALANINE AMINOTRANSFERASE 17 U/L (9-52); ALBUMIN 2.2 g/dL (3.5-5.0); ALKALINE PHOSPHATASE 124 U/L (38-126); ANION GAP 5 (5-19); ASPARTATE AMINO TRANSFERASE 20 U/L (14-36); BILIRUBIN,DIRECT 0.3 mg/dL (0.0-0.4); BILIRUBIN,TOTAL 0.8 mg/dL (0.2-1.3); BLOOD UREA NITROGEN 12 mg/dL (7-20); CALCIUM 7.2 mg/dL (8.4-10.2); CARBON DIOXIDE 25 mmol/L (22-30); CHLORIDE 106 mmol/L (98-107); CREATININE RESULT 0.84 mg/dL (0.52-1.25); GLUCOSE 80 mg/dL (75-110); LDH 788 U/L (313-618); POTASSIUM 4.4 mmol/L (3.6-5.0); SODIUM 135.9 mmol/L (137-145); TOTAL PROTEIN 4.5 g/dL (6.3-8.2); URIC ACID 8.9 mg/dL (2.5-6.2)
[2017-03-03] MEDS ORDERED: OXYCODONE-ACETAMINOPHEN 5-325 MG TABLET ONE ×3 (07:56→13:05)
[2017-03-03] MEDS: OXYCODONE-ACETAMINOPHEN 5-325 MG TABLET PO PRN ×3 (07:57→19:18)
[2017-03-03] MEDS ORDERED: PRENATAL VITAMIN W-O CA NO5/FE FUMARATE/FA CAPSULE ONE (09:30)
[2017-03-03] MEDS ORDERED: DOCUSATE SODIUM 100 MG CAPSULE ONE (09:31)
[2017-03-03] MEDS: DOCUSATE SODIUM 100 MG CAPSULE PO SCH ×2 (09:31→19:18)
[2017-03-03] MEDS: PRENATAL VITAMIN W-O CA NO5/FE FUMARATE/FA CAPSULE PO SCH (09:31)
--- NOTE | 2017-03-03 13:24 | L&D Progress Notes ---
PROGRESS NOTES Datetime Report Generated by CPN: 03/03/2017 13:24 PROGRESS NOTE Impression Other: preeclampsia Vital Signs : Reviewed Comment: Pt off magnesium overnight. No KOO/visual changes/epigastric pain. Lochia light. Adequate pain control. Had Procardia xl add yesterday due to bp. Dressing with stable amount of blood on it. Abodmen soft with normal post op tenderness. Labs showed slightly elevated ldh and uric acid but otherwise improving. Will transfer to floor on procardia xl and follow daily labs. FETUS C SIGNATURE: [id number] Signature: with User ID: [email or web address]
--- NOTE | 2017-03-03 13:50 | OPERATIVE REPORT E ---
Operative Report NAME: NANNETTE CHAN : 1995 AGE: 22Y DATE OF SURGERY: 03/01/2017 ROOM: LR200 PREOPERATIVE DIAGNOSIS: Intrauterine at 34 weeks and 4 days with severe preeclampsia and oliguria, remote from vaginal delivery. POSTOPERATIVE DIAGNOSIS: Intrauterine at 34 weeks and 4 days with severe preeclampsia and oliguria, remote from vaginal delivery. OPERATION: Primary low transverse cervical section. SURGEON: BILLIE WITT M.D. ANESTHESIA: Spinal. SPECIMENS/PATHOLOGY: Placenta. ESTIMATED BLOOD LOSS: 300 mL. FINDINGS: Marie female , vertex presentation, clear amniotic fluid. scores were 8 at one minute, 9 at five minutes. Weight was 4 pounds 13 ounces. Normal-appearing uterus, tubes, and ovaries. The placenta had some blackish areas behind it. DESCRIPTION OF PROCEDURE: After discussing risks, benefits, and alternatives of the procedure and obtaining informed consent, the patient was taken to the operating room where a spinal anesthesia was achieved. She was positioned in the dorsal supine position with a leftward tilt. She was prepped and draped in the standard fashion. Anesthesia was found to be adequate, and Pfannenstiel skin incision was made. Abdomen was entered in layers using the standard fashion. Using the C-Safe knife, a hysterectomy was made in the lower uterine segment. The surgeon's hand was entered into the hysterotomy incision and the 's head delivered. A nuchal cord was reduced. The shoulders and body delivered easily thereafter. Nasopharynx and oropharynx were bulb suctioned. Cord was clamped and cut, and the infant was handed to Pediatrics who were present. The placenta was manually extracted. The uterus was exteriorized and cleared of all clots and debris. The hysterotomy incision was closed in two layers with #0-Monocryl. Excellent hemostasis was observed. Uterus, tubes, and ovaries were returned to the peritoneal cavity. The cavity was irrigated and hemostasis again assured. A layer of Interceed was placed in an inverted T-fashion over the anterior and inferior aspect of the uterus. The peritoneum was closed with 2-0 Vicryl in a continuous fashion. The rectus muscles were loosely re-approximated with interrupted stitches of 2-0 Vicryl. The subfascial spaces were inspected and noted to be hemostatic. The fascia was closed with #1-Vicryl. The subcutaneous tissues were irrigated and hemostasis assured. Plain gut 3-0 was used to close the subcutaneous tissues. The skin was closed in a subcuticular fashion with 3-0 Vicryl. A ASIA dressing was placed and sealed in the standard fashion. This was done as the patient had been oliguric and very edematous. The concern for seroma was present, and this was felt to be most prudent in her case. Cytotec 1000 mcg was then placed per rectum prophylactically as the patient will be back on magnesium postoperatively. She was taken to recovery in stable condition. All sponge, needle, lap, and instrument counts were correct x2. DICTATING PHYSICIAN: BILLIE WITT M.D. [id number] PHY#: [id number] ID: [id number] JOB#: [id number] ACCT: [id number] cc:BILLIE WITT M.D. >
[2017-03-03] MEDS ORDERED: ZOLPIDEM TARTRATE 5 MG TABLET PO PRN (20:01)
[2017-03-03] MEDS ORDERED: NIFEDIPINE 30 MG TAB.ER.24 PO SCH (22:00)
[2017-03-03] MEDS ORDERED: METOCLOPRAMIDE HCL ORAL SOLN 10 MG/10 ML UDCUP PO ONE (23:30)
[2017-03-03] MEDS ORDERED: MAG HYDROX/AL HYDROX/SIMETH SUSP 30 ML UDCUP PO ONE (23:30)
[2017-03-03] MEDS ORDERED: LIDOCAINE 2% VISCOUS SOLN 20 ML UDCUP PO ONE (23:30)
[2017-03-03] MEDS ORDERED: LIDOCAINE 2% VISCOUS SOLN 20 ML UDCUP ONE (23:32)
[2017-03-04] MEDS ORDERED: LANSOPRAZOLE 30 MG TAB.RAP.DR PO ONE (04:15)
[2017-03-04 06:11] LABS: LIPASE 36.8 U/L (23-300)
[2017-03-04 06:12] LABS: AMYLASE < 30 U/L (30-110)
[2017-03-04] MEDS: HYDROMORPHONE HCL INJ/PF 2 MG/ML AMPULE IV PRN ×2 (06:48→21:53)
[2017-03-04 07:15] LABS: HEMATOCRIT 36.8 % (36.0-47.0); HEMOGLOBIN 12.7 g/dL (12.0-15.5); HGB HCT DIFFERENCE 1.3; MEAN CORPUSCULAR HEMOGLOBIN 29.2 pg (27.0-33.4); MEAN CORPUSCULAR HGB CONC 34.5 g/dL (32.0-36.0); MEAN CORPUSCULAR VOLUME 84 fl (80-97); RED BLOOD COUNT 4.36 10^6/uL (3.72-5.28); RED CELL DISTRIBUTION WIDTH 13.3 % (11.5-14.0); WHITE BLOOD COUNT 11.8 10^3/uL (4.0-10.5)
[2017-03-04 07:32] LABS: ALANINE AMINOTRANSFERASE 47 U/L (9-52); ALBUMIN 2.1 g/dL (3.5-5.0); ALKALINE PHOSPHATASE 265 U/L (38-126); ASPARTATE AMINO TRANSFERASE 109 U/L (14-36); BILIRUBIN,DIRECT 0.9 mg/dL (0.0-0.4); BILIRUBIN,TOTAL 1.8 mg/dL (0.2-1.3); BLOOD UREA NITROGEN 12 mg/dL (7-20); CALCIUM 7.5 mg/dL (8.4-10.2); CARBON DIOXIDE 26 mmol/L (22-30); CHLORIDE 107 mmol/L (98-107); CREATININE RESULT 0.78 mg/dL (0.52-1.25); GLUCOSE 87 mg/dL (75-110); TOTAL PROTEIN 4.5 g/dL (6.3-8.2)
[2017-03-04 07:46] LABS: ANION GAP 6 (5-19); POTASSIUM 4.4 mmol/L (3.6-5.0); SODIUM 138.9 mmol/L (137-145)
[2017-03-04] MEDS: PRENATAL VITAMIN W-O CA NO5/FE FUMARATE/FA CAPSULE PO SCH (10:00)
[2017-03-04] MEDS: DOCUSATE SODIUM 100 MG CAPSULE PO SCH ×2 (10:00→20:01)
--- NOTE | 2017-03-04 12:01 | PDOC PROGRESS REPORT ---
Subjective Progress Note for:: 03/04/17 Subjective:: feeling much better, she reports epigastric pain occured after fried chicken strips last pm. She reports pain resolved this am. She desires to cont to breast feed baby and will ambulate in wheelchair to feed baby. She denies KOO/ blurry vision/RUQ pain. She denies any other concerns and reports that she is feeling well. pain well controlled, lochia decreasing. Physical Exam - Physical Exam Vital Signs: Temp Pulse Resp BP Pulse Ox 98.3 F 103 H 18 131/82 H 95 03/04/17 08:00 03/04/17 08:00 03/04/17 08:00 03/04/17 08:00 03/04/17 08:00 Intake & Output 03/03/17 03/04/17 03/05/17 06:59 06:59 06:59 Intake Total 1900 900 Output Total 2387 1350 Balance -487 -450 Weight 125 kg General appearance: PRESENT: no acute distress, well-developed, well-nourished Head exam: PRESENT: atraumatic, normocephalic Respiratory exam: PRESENT: clear to auscultation melba, symmetrical, unlabored. ABSENT: retraction, tachypnea Cardiovascular exam: PRESENT: RRR. ABSENT: diastolic murmur, rubs, systolic murmur GI/Abdominal exam: PRESENT: normal bowel sounds, soft, other - incision c/d/i. ABSENT: distended, guarding, mass, organolmegaly, rebound, tenderness Rectal exam: PRESENT: deferred Extremities exam: PRESENT: full ROM. ABSENT: calf tenderness, clubbing, pedal edema Musculoskeletal exam: PRESENT: ambulatory, full ROM Neurological exam: PRESENT: alert, awake, oriented to person, oriented to place , oriented to time, oriented to situation, CN II-XII grossly intact. ABSENT: motor sensory deficit Psychiatric exam: PRESENT: appropriate affect, normal mood. ABSENT: homicidal ideation, suicidal ideation Focused psych exam: ABSENT: catatonic, delusional, restlessness Skin exam: PRESENT: dry, intact, warm. ABSENT: cyanosis, rash Result Laboratory Results: 03/04/17 07:00 03/04/17 07:00 03/04/17 03/04/17 03/04/17 05:35 07:00 07:00 WBC 11.8 H RBC 4.36 Hgb 12.7 Hct 36.8 MCV 84 MCH 29.2 MCHC 34.5 RDW 13.3 Plt Count 215 Sodium 138.9 Potassium 4.4 Chloride 107 Carbon Dioxide 26 Anion Gap 6 BUN 12 Creatinine 0.78 Est GFR ( Amer) > 60 Est GFR (Non-Af Amer) > 60 Glucose 87 Uric Acid Calcium 7.5 L Total Bilirubin 1.8 H AST 109 H ALT 47 Alkaline Phosphatase 265 H Total Protein 4.5 L Albumin 2.1 L Amylase < 30 L Lipase 36.8 03/04/17 07:00 WBC RBC Hgb Hct MCV MCH MCHC RDW Plt Count Sodium Potassium Chloride Carbon Dioxide Anion Gap BUN Creatinine Est GFR ( Amer) Est GFR (Non-Af Amer) Glucose Uric Acid 8.0 H Calcium Total Bilirubin AST ALT Alkaline Phosphatase Total Protein Albumin Amylase Lipase Impressions: Obstetrics Ultrasound 03/01/17 00:00 IMPRESSION: LIMITED OBSTETRICAL ULTRASOUND WITH MEASURED PARAMETERS DELINEATED ABOVE. Trimester of : Third trimester - 28 weeks to delivery. Assessment & Plan - Diagnosis (1) Delivery by elective caesarean section Is this a current diagnosis for this admission?: YesPlan: Continue routine postop c/s care. (2) Pre-eclampsia Qualifiers: Trimester: third trimester Qualified Code(s): O14.93 - Unspecified pre-eclampsia, third trimester Is this a current diagnosis for this admission?: YesPlan: Continue daily labs most of labs appear to be improving. Amylase/Lipase negative. Epigastric pain resolved. Pt reports have intermittent cholecystitis - she will need f/u with Gen Surgery after delivery. She overall appears to be improving and urinary output improved. Pt is sitting in bed eating and doing well. Recommended continued SCDs and continued use of wheelchair to go to feed baby. Continue procardia and cont monitoring BPs and labs and symptoms. If BPs worsen or symptoms present then may need repeat Magnesium. - Time Time Spent with patient: 15-24 minutes Critical Time spent with patient: Less than 15 minutes Medications reviewed and adjusted accordingly: Yes Anticipated discharge: Home Within: within 36 hours - Inpatient Certification Medical Necessity: Need Close Monitoring Due to Risk of Patient Decompensation, Need For IV Fluids, Risk of Complication if Not Cared For in Hospital Post Hospital Care: D/C Poured Wall Foreman Documentation - Plan Summary Plan Summary: Continue to monitor and cont daily labs.
[2017-03-04] MEDS: SIMETHICONE 80 MG TAB.CHEW PO PRN (12:18)
[2017-03-04] MEDS: OXYCODONE-ACETAMINOPHEN 5-325 MG TABLET PO PRN (12:24)
[2017-03-04] MEDS ORDERED: MAG HYDROX/AL HYDROX/SIMETH SUSP 30 ML UDCUP ONE (14:02)
[2017-03-04] MEDS ORDERED: MAG HYDROX/AL HYDROX/SIMETH SUSP 30 ML UDCUP PO ONE (14:45)
--- NOTE | 2017-03-04 14:46 | PDOC PROGRESS REPORT ---
Subjective Progress Note for:: 03/04/17 Subjective:: pt ate eggs and bojorquez for breakfast and now reports onset of epigastric and RUQ pain again moving to her back. Rashardta helped last pm. Physical Exam - Physical Exam Vital Signs: Temp Pulse Resp BP Pulse Ox 98.2 F 93 18 155/95 H 99 03/04/17 13:44 03/04/17 13:44 03/04/17 13:44 03/04/17 13:44 03/04/17 13:44 Intake & Output 03/03/17 03/04/17 03/05/17 06:59 06:59 06:59 Intake Total 1900 900 440 Output Total 2387 1350 Balance -487 -450 440 Weight 125 kg General appearance: PRESENT: no acute distress, well-developed, well-nourished Head exam: PRESENT: atraumatic, normocephalic Neck exam: PRESENT: full ROM. ABSENT: carotid bruit, JVD, lymphadenopathy, thyromegaly Respiratory exam: PRESENT: clear to auscultation melba, symmetrical, unlabored. ABSENT: tachypnea Cardiovascular exam: PRESENT: RRR, systolic murmur - DEE DEE II/. ABSENT: diastolic murmur, rubs Pulses: PRESENT: normal dorsalis pedis pul, +2 pedal pulses bilateral GI/Abdominal exam: PRESENT: Lepe's sign, normal bowel sounds, soft, tenderness , other - incision c/d/i with dressin in place, + lepe's sign. ABSENT: distended, guarding, mass, organolmegaly, rebound, rigid Rectal exam: PRESENT: deferred Extremities exam: PRESENT: full ROM. ABSENT: calf tenderness, clubbing, pedal edema Neurological exam: PRESENT: alert, awake, oriented to person, oriented to place , oriented to time, oriented to situation, CN II-XII grossly intact. ABSENT: motor sensory deficit Psychiatric exam: PRESENT: appropriate affect, normal mood. ABSENT: homicidal ideation, suicidal ideation Result Laboratory Results: 03/04/17 07:00 03/04/17 07:00 03/04/17 03/04/17 03/04/17 05:35 07:00 07:00 WBC 11.8 H RBC 4.36 Hgb 12.7 Hct 36.8 MCV 84 MCH 29.2 MCHC 34.5 RDW 13.3 Plt Count 215 Sodium 138.9 Potassium 4.4 Chloride 107 Carbon Dioxide 26 Anion Gap 6 BUN 12 Creatinine 0.78 Est GFR ( Amer) > 60 Est GFR (Non-Af Amer) > 60 Glucose 87 Uric Acid Calcium 7.5 L Total Bilirubin 1.8 H AST 109 H ALT 47 Alkaline Phosphatase 265 H Total Protein 4.5 L Albumin 2.1 L Amylase < 30 L Lipase 36.8 03/04/17 07:00 WBC RBC Hgb Hct MCV MCH MCHC RDW Plt Count Sodium Potassium Chloride Carbon Dioxide Anion Gap BUN Creatinine Est GFR ( Amer) Est GFR (Non-Af Amer) Glucose Uric Acid 8.0 H Calcium Total Bilirubin AST ALT Alkaline Phosphatase Total Protein Albumin Amylase Lipase Impressions: Obstetrics Ultrasound 03/01/17 00:00 IMPRESSION: LIMITED OBSTETRICAL ULTRASOUND WITH MEASURED PARAMETERS DELINEATED ABOVE. Trimester of : Third trimester - 28 weeks to delivery. Status: Imported from PACS Assessment & Plan - Diagnosis (1) Delivery by elective caesarean section Is this a current diagnosis for this admission?: YesPlan: Continue routine postop c/s care. (2) Pre-eclampsia Qualifiers: Trimester: third trimester Qualified Code(s): O14.93 - Unspecified pre-eclampsia, third trimester Is this a current diagnosis for this admission?: YesPlan: Continue daily labs most of labs appear to be improving. Amylase/Lipase negative. Epigastric pain resolved. Pt reports have intermittent cholecystitis - she will need f/u with Gen Surgery after delivery. She overall appears to be improving and urinary output improved. Pt is sitting in bed eating and doing well. Recommended continued SCDs and continued use of wheelchair to go to feed baby. Continue procardia and cont monitoring BPs and labs and symptoms. If BPs worsen or symptoms present then may need repeat Magnesium. (3) RUQ abdominal pain Is this a current diagnosis for this admission?: YesPlan: Nursing called to notify myself of onset of RUQ pain/epigastric and CP. Mild tachy noted. Normal exam except for RUQ ttp and Lepe's sign and epigastric pain. Will repeat labs and will get RUQ US. Gen Surgery consulted. Likely cholecystitis with pt's diet last pm fried chkn - onset of pain then resolution with mylanta and then recurrance of pain after bojorquez this am. Pt reports h/o biliary disease. Will also consult IM/Hospitalist to eval pt to ensure covering all poss causes since pt was very sick on admission and is still recovering from Primary C/S due to Severe PreE. No calf ttp and normal respirations. Hospitalist consult to r/o cardiac or respiratory causes. - Time Time Spent with patient: 25-34 minutes Critical Time spent with patient: Less than 15 minutes Medications reviewed and adjusted accordingly: Yes Anticipated discharge: Home Within: within 48 hours, within 36 hours - Inpatient Certification Medical Necessity: Need Close Monitoring Due to Risk of Patient Decompensation, Need for Pain Control, Risk of Complication if Not Cared For in Hospital Post Hospital Care: D/C Traditional Chinese Herbalist Documentation - Plan Summary Plan Summary: Doing well but needs further monitoring and evaluation
[2017-03-04 14:51] LABS: ALANINE AMINOTRANSFERASE 57 U/L (9-52); ALKALINE PHOSPHATASE 249 U/L (38-126); AMYLASE < 30 U/L (30-110); ASPARTATE AMINO TRANSFERASE 139 U/L (14-36); BILIRUBIN,DIRECT 1.4 mg/dL (0.0-0.4); BILIRUBIN,TOTAL 2.5 mg/dL (0.2-1.3); BLOOD UREA NITROGEN 13 mg/dL (7-20); CALCIUM 7.4 mg/dL (8.4-10.2); CARBON DIOXIDE 28 mmol/L (22-30); CHLORIDE 106 mmol/L (98-107); CREATININE RESULT 0.86 mg/dL (0.52-1.25); GLUCOSE 79 mg/dL (75-110); LIPASE 71.2 U/L (23-300); POTASSIUM 4.4 mmol/L (3.6-5.0); TOTAL PROTEIN 4.2 g/dL (6.3-8.2)
[2017-03-04 14:58] LABS: SODIUM 138.3 mmol/L (137-145)
[2017-03-04 15:02] LABS: ANION GAP 4 (5-19)
--- NOTE | 2017-03-04 17:23 | PDOC CONSULTATION ---
Consultation Consult Date: 03/04/17 Attending physician:: DIANE FULLER Consult reason:: Chest pain History of Present Illness Admission Date/PCP: 03/01/17 12:21 DIANE FULLER MD Patient complains of: Chest pain History of Present Illness: NANNETTE CHAN is a 22 year old female who is who has complaints of chest pain. She reports that when she eats she has pain epigastric the radiates into the mid chest area and also to the right scapular area. She has associated nausea but no vomiting currently. She's had intermittent episodes of this during her and had an ultrasound that shows her to have gallbladder sludge present. The patient denies having any dyspnea on exertion. She has had problems with preeclampsia and is going to be going back to labor and delivery area for magnesium drip later today. Patient has no family history of heart disease and has no risk factors. She denies having any orthopnea or PND. Past Medical History Cardiac Medical History: Reports: None Pulmonary Medical History: Reports: Bronchitis, Pneumonia EENT Medical History: Reports: None Neurological Medical History: Reports: None Endocrine Medical History: Reports: None Malignancy Medical History: Reports: None GI Medical History: Reports: Other - Ultrasound in September 2016 shows her to have gallbladder sludge present Musculoskeltal Medical History: Reports: None Skin Medical History: Reports: None Psychiatric Medical History: Reports: None Hematology: Reports: None Infectious Medical History: Reports: None Past Surgical History Past Surgical History: Reports: Section Social History Information Source: Patient Lives with: Family Smoking Status: Never Smoker Frequency of Alcohol Use: None Hx Recreational Drug Use: No Drugs: None Hx Prescription Drug Abuse: No - Advance Directive Resuscitation Status: Full Code Family History Family History: Both of her parents are alive and healthy. None of her grandparents had any history of heart disease. Parental Family History Reviewed: Yes Children Family History Reviewed: No Sibling(s) Family History Reviewed.: No Medication/Allergy Home Medications: [id number]/FA/Omega3/Dha/Fish Oil [ Gummies] 2 each PO DAILY 02/20/17 Allergies/Adverse Reactions: No Known Allergies Allergy (Verified 02/28/17 10:42) Review of Systems Constitutional: ABSENT: chills, fever(s), headache(s), weight gain, weight loss Eyes: ABSENT: visual disturbances Cardiovascular: PRESENT: chest pain, edema. ABSENT: dyspnea on exertion, orthropnea, palpitations Respiratory: ABSENT: cough, hemoptysis Gastrointestinal: PRESENT: as per HPI Integumentary: ABSENT: rash, wounds Neurological: ABSENT: abnormal gait, abnormal speech, confusion, dizziness, focal weakness, syncope Psychiatric: ABSENT: anxiety, depression Endocrine: ABSENT: cold intolerance, heat intolerance, polydipsia, polyuria Hematologic/Lymphatic: ABSENT: easy bleeding, easy bruising Physical Exam Vital Signs: Temp Pulse Resp BP Pulse Ox 98.6 F 85 18 152/92 H 98 03/04/17 15:10 03/04/17 15:10 03/04/17 15:10 03/04/17 15:10 03/04/17 15:10 Intake & Output 03/03/17 03/04/17 03/05/17 06:59 06:59 06:59 Intake Total 1900 900 440 Output Total 2387 1350 Balance -487 -450 440 Weight 125 kg General appearance: PRESENT: no acute distress, obese Eye exam: PRESENT: conjunctiva pink. ABSENT: scleral icterus Mouth exam: PRESENT: moist, tongue midline Neck exam: ABSENT: JVD Respiratory exam: PRESENT: clear to auscultation melba. ABSENT: rales, rhonchi, wheezes Cardiovascular exam: PRESENT: RRR. ABSENT: diastolic murmur, rubs, systolic murmur GI/Abdominal exam: PRESENT: normal bowel sounds, soft, tenderness - Mild epigastric tenderness. No guarding or rebound.. ABSENT: distended, guarding, mass, organolmegaly, rebound Rectal exam: PRESENT: deferred Extremities exam: ABSENT: calf tenderness, clubbing Neurological exam: PRESENT: alert, awake, oriented to person, oriented to place , oriented to time, oriented to situation, CN II-XII grossly intact. ABSENT: motor sensory deficit Psychiatric exam: PRESENT: appropriate affect Skin exam: PRESENT: dry, intact, warm. ABSENT: cyanosis, rash Results Laboratory Results: 03/04/17 07:00 03/04/17 14:08 03/04/17 03/04/17 03/04/17 05:35 07:00 07:00 WBC 11.8 H RBC 4.36 Hgb 12.7 Hct 36.8 MCV 84 MCH 29.2 MCHC 34.5 RDW 13.3 Plt Count 215 Sodium 138.9 Potassium 4.4 Chloride 107 Carbon Dioxide 26 Anion Gap 6 BUN 12 Creatinine 0.78 Est GFR ( Amer) > 60 Est GFR (Non-Af Amer) > 60 Glucose 87 Uric Acid Calcium 7.5 L Total Bilirubin 1.8 H AST 109 H ALT 47 Alkaline Phosphatase 265 H Total Protein 4.5 L Albumin 2.1 L Amylase < 30 L Lipase 36.8 03/04/17 03/04/17 07:00 14:08 WBC RBC Hgb Hct MCV MCH MCHC RDW Plt Count Sodium 138.3 Potassium 4.4 Chloride 106 Carbon Dioxide 28 Anion Gap 4 L BUN 13 Creatinine 0.86 Est GFR ( Amer) > 60 Est GFR (Non-Af Amer) > 60 Glucose 79 Uric Acid 8.0 H Calcium 7.4 L Total Bilirubin 2.5 H AST 139 H ALT 57 H Alkaline Phosphatase 249 H Total Protein 4.2 L Albumin 2.0 L Amylase < 30 L Lipase 71.2 Impressions: Obstetrics Ultrasound 03/01/17 00:00 IMPRESSION: LIMITED OBSTETRICAL ULTRASOUND WITH MEASURED PARAMETERS DELINEATED ABOVE. Trimester of : Third trimester - 28 weeks to delivery. Assessment & Plan - Diagnosis (1) Chest pain Is this a current diagnosis for this admission?: YesPlan: The patient's chest pain most likely is related to her gallbladder disease. Patient has no risk factors. She does not smoke, has no family history, and has no symptoms to suggest cardiomyopathy. Ultrasound has been ordered already. If that is normal would next proceed with a HIDA scan. (2) Pre-eclampsia Qualifiers: Trimester: third trimester Qualified Code(s): O14.93 - Unspecified pre-eclampsia, third trimester Is this a current diagnosis for this admission?: Yes - Time Time Spent: 30 to 50 Minutes - Plan Summary Plan Summary: Would not suggest any further cardiac workup. We'll follow along with you.
[2017-03-04] MEDS ORDERED: DOCUSATE SODIUM 100 MG CAPSULE ONE (17:53)
[2017-03-04 18:30] LABS: ABSOLUTE EOSINOPHILS # (AUTO) 0.2 10^3/uL (0.0-0.6); ABSOLUTE LYMPHOCYTES (AUTO) 2.5 10^3/uL (0.5-4.7); ABSOLUTE MONOCYTES (AUTO) 0.8 10^3/uL (0.1-1.4); ABSOLUTE NEUT (AUTO) 7.6 10^3/uL (1.7-8.2); BASOPHILS % (AUTO) 0.4 % (0-2); HEMATOCRIT 36.2 % (36.0-47.0); HEMOGLOBIN 12.2 g/dL (12.0-15.5); HGB HCT DIFFERENCE 0.4; LYMPHOCYTES % (AUTO) 22.3 % (13-45); MEAN CORPUSCULAR HEMOGLOBIN 28.9 pg (27.0-33.4); MEAN CORPUSCULAR HGB CONC 33.5 g/dL (32.0-36.0); MEAN CORPUSCULAR VOLUME 86 fl (80-97); MONOCYTES % (AUTO) 7.2 % (3-13); RED BLOOD COUNT 4.21 10^6/uL (3.72-5.28); RED CELL DISTRIBUTION WIDTH 13.4 % (11.5-14.0); SEGMENTED NEUTROPHILS % (AUTO) 68.1 % (42-78); WHITE BLOOD COUNT 11.1 10^3/uL (4.0-10.5)
[2017-03-04 18:47] LABS: ALANINE AMINOTRANSFERASE 74 U/L (9-52); ALKALINE PHOSPHATASE 255 U/L (38-126); AMYLASE 992 U/L (30-110); ANION GAP 5 (5-19); ASPARTATE AMINO TRANSFERASE 184 U/L (14-36); BILIRUBIN,DIRECT 1.9 mg/dL (0.0-0.4); BILIRUBIN,TOTAL 3.2 mg/dL (0.2-1.3); BLOOD UREA NITROGEN 12 mg/dL (7-20); CALCIUM 7.6 mg/dL (8.4-10.2); CARBON DIOXIDE 27 mmol/L (22-30); CHLORIDE 105 mmol/L (98-107); CREATININE RESULT 0.79 mg/dL (0.52-1.25); GLUCOSE 72 mg/dL (75-110); LDH 940 U/L (313-618); POTASSIUM 4.4 mmol/L (3.6-5.0); SODIUM 137.2 mmol/L (137-145); TOTAL PROTEIN 4.2 g/dL (6.3-8.2); URIC ACID 7.8 mg/dL (2.5-6.2)
--- NOTE | 2017-03-04 20:45 | PDOC PROGRESS REPORT ---
Subjective Progress Note for:: 03/04/17 Subjective:: pt reports still having RUQ pain/epigastric pain and back pain but improved. pain from incision well controlled. Physical Exam - Physical Exam Vital Signs: Temp Pulse Resp BP Pulse Ox 98.6 F 85 18 152/92 H 98 03/04/17 15:10 03/04/17 15:10 03/04/17 15:10 03/04/17 15:10 03/04/17 15:10 Intake & Output 03/03/17 03/04/17 03/05/17 06:59 06:59 06:59 Intake Total 1900 900 440 Output Total 2387 1350 Balance -487 -450 440 Weight 125 kg General appearance: PRESENT: no acute distress, well-developed, well-nourished Head exam: PRESENT: atraumatic, normocephalic Respiratory exam: PRESENT: clear to auscultation melba, symmetrical, unlabored. ABSENT: tachypnea Cardiovascular exam: PRESENT: RRR. ABSENT: diastolic murmur, rubs, systolic murmur Pulses: PRESENT: normal dorsalis pedis pul, +2 pedal pulses bilateral GI/Abdominal exam: PRESENT: normal bowel sounds, soft. ABSENT: distended, guarding, mass, organolmegaly, rebound, tenderness Rectal exam: PRESENT: deferred Extremities exam: PRESENT: full ROM. ABSENT: calf tenderness, clubbing, pedal edema Neurological exam: PRESENT: alert, awake, oriented to person, oriented to place , oriented to time, oriented to situation, CN II-XII grossly intact. ABSENT: motor sensory deficit Psychiatric exam: PRESENT: appropriate affect, normal mood. ABSENT: homicidal ideation, suicidal ideation Skin exam: PRESENT: dry, intact, warm. ABSENT: cyanosis, rash Result Laboratory Results: 03/04/17 18:01 03/04/17 18:01 03/04/17 03/04/17 03/04/17 05:35 07:00 07:00 WBC 11.8 H RBC 4.36 Hgb 12.7 Hct 36.8 MCV 84 MCH 29.2 MCHC 34.5 RDW 13.3 Plt Count 215 Seg Neutrophils % Lymphocytes % Monocytes % Eosinophils % Basophils % Absolute Neutrophils Absolute Lymphocytes Absolute Monocytes Absolute Eosinophils Absolute Basophils Sodium 138.9 Potassium 4.4 Chloride 107 Carbon Dioxide 26 Anion Gap 6 BUN 12 Creatinine 0.78 Est GFR ( Amer) > 60 Est GFR (Non-Af Amer) > 60 Glucose 87 Uric Acid Calcium 7.5 L Total Bilirubin 1.8 H AST 109 H ALT 47 Alkaline Phosphatase 265 H Total Protein 4.5 L Albumin 2.1 L Amylase < 30 L Lipase 36.8 03/04/17 03/04/17 03/04/17 07:00 14:08 18:01 WBC 11.1 H RBC 4.21 Hgb 12.2 Hct 36.2 MCV 86 MCH 28.9 MCHC 33.5 RDW 13.4 Plt Count 229 Seg Neutrophils % 68.1 Lymphocytes % 22.3 Monocytes % 7.2 Eosinophils % 2.0 Basophils % 0.4 Absolute Neutrophils 7.6 Absolute Lymphocytes 2.5 Absolute Monocytes 0.8 Absolute Eosinophils 0.2 Absolute Basophils 0.0 Sodium 138.3 Potassium 4.4 Chloride 106 Carbon Dioxide 28 Anion Gap 4 L BUN 13 Creatinine 0.86 Est GFR ( Amer) > 60 Est GFR (Non-Af Amer) > 60 Glucose 79 Uric Acid 8.0 H Calcium 7.4 L Total Bilirubin 2.5 H AST 139 H ALT 57 H Alkaline Phosphatase 249 H Total Protein 4.2 L Albumin 2.0 L Amylase < 30 L Lipase 71.2 03/04/17 18:01 WBC RBC Hgb Hct MCV MCH MCHC RDW Plt Count Seg Neutrophils % Lymphocytes % Monocytes % Eosinophils % Basophils % Absolute Neutrophils Absolute Lymphocytes Absolute Monocytes Absolute Eosinophils Absolute Basophils Sodium 137.2 Potassium 4.4 Chloride 105 Carbon Dioxide 27 Anion Gap 5 BUN 12 Creatinine 0.79 Est GFR ( Amer) > 60 Est GFR (Non-Af Amer) > 60 Glucose 72 L Uric Acid 7.8 H Calcium 7.6 L Total Bilirubin 3.2 H AST 184 H ALT 74 H Alkaline Phosphatase 255 H Total Protein 4.2 L Albumin 2.0 L Amylase 992 H Lipase Impressions: Obstetrics Ultrasound 03/01/17 00:00 IMPRESSION: LIMITED OBSTETRICAL ULTRASOUND WITH MEASURED PARAMETERS DELINEATED ABOVE. Trimester of : Third trimester - 28 weeks to delivery. Status: Imported from PACS Assessment & Plan - Diagnosis (1) Delivery by elective caesarean section Is this a current diagnosis for this admission?: YesPlan: Continue routine postop c/s care. (2) Pre-eclampsia Qualifiers: Trimester: third trimester Qualified Code(s): O14.93 - Unspecified pre-eclampsia, third trimester Is this a current diagnosis for this admission?: YesPlan: Continue to manage on L&D for now. Monitor I/O and fluid intake. Continue to monitor labs and fluid status. renal function appears to be improving and platlets stable. No e/o HELLP syndrome. REview of labs with likely Cholelithiasis now developing into Pancreatitis. Alternative dx would be fatty liver of but less likely considering patients presentation and findings on US and that presentation is several days . Gen Surg aware. (3) RUQ abdominal pain Is this a current diagnosis for this admission?: YesPlan: Repeat labs q 4-6 hours. Concern for pancreatitis at this time likely secondary to cholecystitis. See US findings. Gen Surgery consulted and forte of most recent results. Medicine consulted and appreciate their consult and assistance. Gen Surgery will see patient. Will monitor fluids. Make pt NPO again. Due to patients recovering from PreE and Primary C/S will need to judicious with fluids. So will start with 75ml/hr and if pt tolerates and repeat labs show stable renal function then would likely be ok to increase to 125ml/hr. (4) Pancreatitis, acute Qualifiers: Pancreatitis type: biliary Acute pancreatitis complication: no infection or necrosis Qualified Code(s): K85.10 - Biliary acute pancreatitis without necrosis or infection Is this a current diagnosis for this admission?: YesPlan: Gen Surgery and Internal Medicine consulted. See above dx re need to monitor fluid status very carfully. NPO. gen surgery aware of change in status and will make IM aware as well. Appreciate both of their assistance with pt. - Time Time Spent with patient: 15-24 minutes Critical Time spent with patient: Less than 15 minutes Medications reviewed and adjusted accordingly: Yes Anticipated discharge: Home Within: within 72 hours - Inpatient Certification Medical Necessity: Need Close Monitoring Due to Risk of Patient Decompensation, Need For IV Fluids, Need for Pain Control, Need for Surgery
[2017-03-04] MEDS ORDERED: HYDROMORPHONE HCL INJ/PF 2 MG/ML AMPULE ONE (21:17)
[2017-03-04] MEDS ORDERED: NIFEDIPINE 30 MG TAB.ER.24 PO ONE (21:17)
[2017-03-04] MEDS: NIFEDIPINE 30 MG TAB.ER.24 PO SCH (21:53)
--- NOTE | 2017-03-04 22:03 | CONSULTATION REPORT E ---
Consultation Report NAME: NANNETTE CHAN : 1995 AGE: 22Y DATE: 03/04/2017 LR200 H TO: MELISSA AYALA M.D. FROM: BLANQUITA GARCIA M.D. Requesting Physician REASON FOR CONSULTATION: Patient with right upper quadrant pain and sludge in the gallbladder on ultrasound and now with elevated amylase. HISTORY OF PRESENT ILLNESS: This is a 22-year-old female who had a section done 03/01/2017. She was also noted to have preeclampsia. Last night after a fatty meal, complained of severe pain in the right upper quadrant radiating to the back lasting for about 4 hours. She had an ultrasound this afternoon which showed, according to Dr. Cervantes, gallbladder sludge with normal common bile duct of about 5 mm in diameter; however, the most recent amylase done this afternoon was noted to be 992 and alkaline phosphatase of 265 and AST at 109 with WBC of 11.1. PAST HISTORY: section 03/01/2017. ALLERGIES: None known. REVIEW OF SYSTEMS: As in HPI. Right upper quadrant pain, currently off and on, mild during her ; however, after a fatty meal last night, complained of severe right upper quadrant pain radiating to the back associated with nausea. Denies any diarrhea, constipation. No dysuria. At this time, the patient has a Moralez catheter which is being monitored very closely for the preeclampsia. The rest of the systems unremarkable. FAMILY HISTORY: Non-contributory. PHYSICAL EXAMINATION: VITAL SIGNS: Her blood pressure is 152/92. Heart rate of 85. Temperature of 98.6 degrees Fahrenheit. O2 sat of 98% on room air. HEENT: Neck is supple. No thyromegaly. LUNGS: Clear. HEART: Regular sinus rhythm. ABDOMEN: Soft, nontender at this time. EXTREMITIES: Mild edema. IMPRESSION: 1. Gallstone pancreatitis. 2. Status post section with preeclampsia. PLAN: 1. Keep patient n.p.o. 2. Continue hydration. 3. Repeat amylase and LFTs as well as CBC with differential in the morning. 4. If her LFTs and amylase start to go down, then she might need HIDA scan to make sure there is no acute cholecystitis, and we can hold off doing cholecystectomy while patient is recovering from her preeclampsia. DICTATING PHYSICIAN: MELISSA AYALA M.D. [id number] PHY#: [id number] ID: [id number] JOB#: [id number] ACCT: [id number] cc:MELISSA AYALA M.D. >
[2017-03-05 00:54] LABS: ABSOLUTE EOSINOPHILS # (AUTO) 0.2 10^3/uL (0.0-0.6); ABSOLUTE LYMPHOCYTES (AUTO) 2.2 10^3/uL (0.5-4.7); ABSOLUTE MONOCYTES (AUTO) 0.5 10^3/uL (0.1-1.4); ABSOLUTE NEUT (AUTO) 5.5 10^3/uL (1.7-8.2); BASOPHILS % (AUTO) 0.6 % (0-2); EOSINOPHILS % (AUTO) 2.7 % (0-6); HEMATOCRIT 33.6 % (36.0-47.0); HEMOGLOBIN 11.7 g/dL (12.0-15.5); HGB HCT DIFFERENCE 1.5; LYMPHOCYTES % (AUTO) 25.9 % (13-45); MEAN CORPUSCULAR HEMOGLOBIN 29.7 pg (27.0-33.4); MEAN CORPUSCULAR HGB CONC 34.8 g/dL (32.0-36.0); MEAN CORPUSCULAR VOLUME 86 fl (80-97); MONOCYTES % (AUTO) 5.6 % (3-13); RED BLOOD COUNT 3.93 10^6/uL (3.72-5.28); RED CELL DISTRIBUTION WIDTH 13.1 % (11.5-14.0); SEGMENTED NEUTROPHILS % (AUTO) 65.2 % (42-78); WHITE BLOOD COUNT 8.5 10^3/uL (4.0-10.5)
[2017-03-05 01:36] LABS: ALANINE AMINOTRANSFERASE 75 U/L (9-52); ALBUMIN 1.8 g/dL (3.5-5.0); ALKALINE PHOSPHATASE 231 U/L (38-126); AMYLASE 590 U/L (30-110); ASPARTATE AMINO TRANSFERASE 148 U/L (14-36); BILIRUBIN,DIRECT 0.9 mg/dL (0.0-0.4); BLOOD UREA NITROGEN 11 mg/dL (7-20); CALCIUM 7.6 mg/dL (8.4-10.2); CHLORIDE 109 mmol/L (98-107); CREATININE RESULT 0.81 mg/dL (0.52-1.25); GLUCOSE 79 mg/dL (75-110); LDH 788 U/L (313-618)
[2017-03-05 01:48] LABS: ANION GAP 5 (5-19); CARBON DIOXIDE 27 mmol/L (22-30); POTASSIUM 4.6 mmol/L (3.6-5.0); SODIUM 141.2 mmol/L (137-145)
[2017-03-05] MEDS: RINGERS SOLUTION,LACTATED 1,000 ML IV PRN (06:00)
[2017-03-05 08:01] LABS: ABSOLUTE EOSINOPHILS # (AUTO) 0.3 10^3/uL (0.0-0.6); ABSOLUTE MONOCYTES (AUTO) 0.5 10^3/uL (0.1-1.4); ABSOLUTE NEUT (AUTO) 6.5 10^3/uL (1.7-8.2); BASOPHILS % (AUTO) 0.5 % (0-2); EOSINOPHILS % (AUTO) 2.7 % (0-6); HEMATOCRIT 35.9 % (36.0-47.0); HEMOGLOBIN 12.3 g/dL (12.0-15.5); LYMPHOCYTES % (AUTO) 21.6 % (13-45); MEAN CORPUSCULAR HEMOGLOBIN 29.2 pg (27.0-33.4); MEAN CORPUSCULAR HGB CONC 34.2 g/dL (32.0-36.0); MEAN CORPUSCULAR VOLUME 86 fl (80-97); RED CELL DISTRIBUTION WIDTH 13.2 % (11.5-14.0); SEGMENTED NEUTROPHILS % (AUTO) 70.2 % (42-78); WHITE BLOOD COUNT 9.2 10^3/uL (4.0-10.5)
[2017-03-05 08:22] LABS: ALANINE AMINOTRANSFERASE 75 U/L (9-52); ALBUMIN 1.9 g/dL (3.5-5.0); ALKALINE PHOSPHATASE 234 U/L (38-126); AMYLASE 431 U/L (30-110); ANION GAP 5 (5-19); ASPARTATE AMINO TRANSFERASE 113 U/L (14-36); BILIRUBIN,DIRECT 0.2 mg/dL (0.0-0.4); BILIRUBIN,TOTAL 1.4 mg/dL (0.2-1.3); BLOOD UREA NITROGEN 10 mg/dL (7-20); CALCIUM 7.7 mg/dL (8.4-10.2); CARBON DIOXIDE 27 mmol/L (22-30); CHLORIDE 106 mmol/L (98-107); CREATININE RESULT 0.73 mg/dL (0.52-1.25); GLUCOSE 70 mg/dL (75-110); LDH 670 U/L (313-618); LIPASE 1646.6 U/L (23-300); POTASSIUM 4.2 mmol/L (3.6-5.0); SODIUM 137.7 mmol/L (137-145); URIC ACID 7.7 mg/dL (2.5-6.2)
--- NOTE | 2017-03-05 08:58 | PDOC PROGRESS REPORT ---
Subjective Progress Note for:: 03/05/17 Subjective:: RUQ pain and epigastric pain improved. section pain stable and pain meds working. lochia decreasing. Physical Exam - Physical Exam Vital Signs: Temp Pulse Resp BP Pulse Ox 98.6 F 85 18 152/92 H 98 03/04/17 15:10 03/04/17 15:10 03/04/17 15:10 03/04/17 15:10 03/04/17 15:10 Intake & Output 03/04/17 03/05/17 03/06/17 06:59 06:59 06:59 Intake Total 900 440 Output Total 1350 Balance -450 440 Weight 125 kg General appearance: PRESENT: no acute distress, well-developed, well-nourished Head exam: PRESENT: atraumatic, normocephalic Respiratory exam: PRESENT: clear to auscultation melba, symmetrical, unlabored Cardiovascular exam: PRESENT: RRR, systolic murmur - DEE DEE II/. ABSENT: diastolic murmur, rubs Pulses: PRESENT: normal dorsalis pedis pul, +2 pedal pulses bilateral GI/Abdominal exam: PRESENT: normal bowel sounds, soft, other - incision c/d/i with dressing in place. ABSENT: distended, guarding, mass, organolmegaly, rebound, tenderness Rectal exam: PRESENT: deferred Extremities exam: PRESENT: full ROM. ABSENT: calf tenderness, clubbing, pedal edema Neurological exam: PRESENT: alert, awake, oriented to person, oriented to place , oriented to time, oriented to situation, CN II-XII grossly intact. ABSENT: motor sensory deficit Psychiatric exam: PRESENT: appropriate affect, normal mood. ABSENT: homicidal ideation, suicidal ideation Skin exam: PRESENT: dry, intact, warm. ABSENT: cyanosis, rash Result Laboratory Results: 03/05/17 07:34 03/05/17 07:34 03/04/17 03/04/17 03/04/17 14:08 18:01 18:01 WBC 11.1 H RBC 4.21 Hgb 12.2 Hct 36.2 MCV 86 MCH 28.9 MCHC 33.5 RDW 13.4 Plt Count 229 Seg Neutrophils % 68.1 Lymphocytes % 22.3 Monocytes % 7.2 Eosinophils % 2.0 Basophils % 0.4 Absolute Neutrophils 7.6 Absolute Lymphocytes 2.5 Absolute Monocytes 0.8 Absolute Eosinophils 0.2 Absolute Basophils 0.0 Sodium 138.3 137.2 Potassium 4.4 4.4 Chloride 106 105 Carbon Dioxide 28 27 Anion Gap 4 L 5 BUN 13 12 Creatinine 0.86 0.79 Est GFR ( Amer) > 60 > 60 Est GFR (Non-Af Amer) > 60 > 60 Glucose 79 72 L Uric Acid 7.8 H Calcium 7.4 L 7.6 L Total Bilirubin 2.5 H 3.2 H AST 139 H 184 H ALT 57 H 74 H Alkaline Phosphatase 249 H 255 H Total Protein 4.2 L 4.2 L Albumin 2.0 L 2.0 L Amylase < 30 L 992 H Lipase 71.2 03/05/17 03/05/17 03/05/17 00:43 00:43 07:34 WBC 8.5 9.2 RBC 3.93 4.20 Hgb 11.7 L 12.3 Hct 33.6 L 35.9 L MCV 86 86 MCH 29.7 29.2 MCHC 34.8 34.2 RDW 13.1 13.2 Plt Count 212 225 Seg Neutrophils % 65.2 70.2 Lymphocytes % 25.9 21.6 Monocytes % 5.6 5.0 Eosinophils % 2.7 2.7 Basophils % 0.6 0.5 Absolute Neutrophils 5.5 6.5 Absolute Lymphocytes 2.2 2.0 Absolute Monocytes 0.5 0.5 Absolute Eosinophils 0.2 0.3 Absolute Basophils 0.0 0.0 Sodium 141.2 Potassium 4.6 Chloride 109 H Carbon Dioxide 27 Anion Gap 5 BUN 11 Creatinine 0.81 Est GFR ( Amer) > 60 Est GFR (Non-Af Amer) > 60 Glucose 79 Uric Acid 8.0 H Calcium 7.6 L Total Bilirubin 2.0 H AST 148 H ALT 75 H Alkaline Phosphatase 231 H Total Protein 4.0 L Albumin 1.8 L Amylase 590 H Lipase 3180.0 H 03/05/17 07:34 WBC RBC Hgb Hct MCV MCH MCHC RDW Plt Count Seg Neutrophils % Lymphocytes % Monocytes % Eosinophils % Basophils % Absolute Neutrophils Absolute Lymphocytes Absolute Monocytes Absolute Eosinophils Absolute Basophils Sodium 137.7 Potassium 4.2 Chloride 106 Carbon Dioxide 27 Anion Gap 5 BUN 10 Creatinine 0.73 Est GFR ( Amer) > 60 Est GFR (Non-Af Amer) > 60 Glucose 70 L Uric Acid 7.7 H Calcium 7.7 L Total Bilirubin 1.4 H AST 113 H ALT 75 H Alkaline Phosphatase 234 H Total Protein 4.0 L Albumin 1.9 L Amylase 431 H Lipase 1646.6 H Impressions: Obstetrics Ultrasound 03/01/17 00:00 IMPRESSION: LIMITED OBSTETRICAL ULTRASOUND WITH MEASURED PARAMETERS DELINEATED ABOVE. Trimester of : Third trimester - 28 weeks to delivery. Abdomen Ultrasound 03/04/17 00:00 IMPRESSION: Small gallstones and sludge. Borderline gallbladder wall thickness , 3 mm. No pericholecystic fluid. Status: Imported from PACS Assessment & Plan - Diagnosis (1) Delivery by elective caesarean section Is this a current diagnosis for this admission?: YesPlan: Continue routine postop c/s care. (2) Pre-eclampsia Qualifiers: Trimester: third trimester Qualified Code(s): O14.93 - Unspecified pre-eclampsia, third trimester Is this a current diagnosis for this admission?: YesPlan: Continue to manage on L&D for now if deveops respiratory issues or begins to develop pulmonary edema. Monitor I/O and fluid intake. Continue to monitor labs and fluid status. renal function appears to be improving and platlets stable. No e/o HELLP syndrome. REview of labs with likely Cholelithiasis now developing into Pancreatitis as of last night - labs this am are improving. Alternative dx would be fatty liver of but less likely considering patients presentation and findings on US and that presentation is several days . Gen Surg aware. (3) RUQ abdominal pain Is this a current diagnosis for this admission?: YesPlan: Repeat labs q 4-6 hours. Concern for pancreatitis at this time likely secondary to cholelithiasis. See US findings. Gen Surgery consulted and will see today. Medicine consulted and appreciate their consult and assistance. Will monitor fluids. Make pt NPO again. Due to patients recovering from PreE and Primary C/S will need to judicious with fluids. 75ml/hr tolerated well and IVF increased to 125ml/hr as long as her pulmonary status can tolerate it. (4) Pancreatitis, acute Qualifiers: Pancreatitis type: biliary Acute pancreatitis complication: no infection or necrosis Qualified Code(s): K85.10 - Biliary acute pancreatitis without necrosis or infection Is this a current diagnosis for this admission?: YesPlan: Gen Surgery and Internal Medicine consulted. See above dx re need to monitor fluid status very carfully. NPO. gen surgery aware of change in status and will make IM aware as well - Dr. Dominguez notified last evening and he said he would notify morning Hospitalist. Appreciate both of their assistance with pt. - Time Time Spent with patient: 15-24 minutes Critical Time spent with patient: Less than 15 minutes Medications reviewed and adjusted accordingly: Yes Anticipated discharge: Home Within: within 72 hours - Inpatient Certification Medical Necessity: Significant Comorbidiites Make Outpatient Treatment Too Risky , Need Close Monitoring Due to Risk of Patient Decompensation, Need For IV Fluids, Need for Pain Control, Need for Surgery, Risk of Complication if Not Cared For in Hospital Post Hospital Care: D/C Laboratory Director Documentation
[2017-03-05 09:39] LABS: PARTIAL THROMBOPLASTIN TIME 27.5 SEC (23.5-35.8)
--- NOTE | 2017-03-05 12:12 | PDOC PROGRESS REPORT ---
Subjective Progress Note for:: 03/05/17 Subjective:: Patient reports that her abdominal pain is improved. Physical Exam Vital Signs: Temp Pulse Resp BP Pulse Ox 98.6 F 85 18 152/92 H 98 03/04/17 15:10 03/04/17 15:10 03/04/17 15:10 03/04/17 15:10 03/04/17 15:10 Intake & Output 03/04/17 03/05/17 03/06/17 06:59 06:59 06:59 Intake Total 900 440 Output Total 1350 Balance -450 440 Weight 125 kg General appearance: PRESENT: no acute distress Eye exam: PRESENT: conjunctiva pink. ABSENT: scleral icterus Mouth exam: PRESENT: moist, tongue midline Respiratory exam: PRESENT: clear to auscultation melba. ABSENT: rales, rhonchi, wheezes Cardiovascular exam: PRESENT: RRR. ABSENT: diastolic murmur, rubs, systolic murmur GI/Abdominal exam: PRESENT: normal bowel sounds, soft, tenderness - Mild upper tenderness but no guarding or rebound.. ABSENT: distended, guarding, mass, organolmegaly, rebound Extremities exam: PRESENT: pedal edema - Trace pedal edema. ABSENT: calf tenderness, clubbing Neurological exam: PRESENT: alert, awake, oriented to person, oriented to place , oriented to time, oriented to situation Psychiatric exam: PRESENT: appropriate affect Results Laboratory Results: 03/05/17 07:34 03/05/17 07:34 03/04/17 03/04/17 03/04/17 14:08 18:01 18:01 WBC 11.1 H RBC 4.21 Hgb 12.2 Hct 36.2 MCV 86 MCH 28.9 MCHC 33.5 RDW 13.4 Plt Count 229 Seg Neutrophils % 68.1 Lymphocytes % 22.3 Monocytes % 7.2 Eosinophils % 2.0 Basophils % 0.4 Absolute Neutrophils 7.6 Absolute Lymphocytes 2.5 Absolute Monocytes 0.8 Absolute Eosinophils 0.2 Absolute Basophils 0.0 Sodium 138.3 137.2 Potassium 4.4 4.4 Chloride 106 105 Carbon Dioxide 28 27 Anion Gap 4 L 5 BUN 13 12 Creatinine 0.86 0.79 Est GFR ( Amer) > 60 > 60 Est GFR (Non-Af Amer) > 60 > 60 Glucose 79 72 L Uric Acid 7.8 H Calcium 7.4 L 7.6 L Total Bilirubin 2.5 H 3.2 H AST 139 H 184 H ALT 57 H 74 H Alkaline Phosphatase 249 H 255 H Total Protein 4.2 L 4.2 L Albumin 2.0 L 2.0 L Amylase < 30 L 992 H Lipase 71.2 Blood Type Antibody Screen 03/05/17 03/05/17 03/05/17 00:43 00:43 07:34 WBC 8.5 9.2 RBC 3.93 4.20 Hgb 11.7 L 12.3 Hct 33.6 L 35.9 L MCV 86 86 MCH 29.7 29.2 MCHC 34.8 34.2 RDW 13.1 13.2 Plt Count 212 225 Seg Neutrophils % 65.2 70.2 Lymphocytes % 25.9 21.6 Monocytes % 5.6 5.0 Eosinophils % 2.7 2.7 Basophils % 0.6 0.5 Absolute Neutrophils 5.5 6.5 Absolute Lymphocytes 2.2 2.0 Absolute Monocytes 0.5 0.5 Absolute Eosinophils 0.2 0.3 Absolute Basophils 0.0 0.0 Sodium 141.2 Potassium 4.6 Chloride 109 H Carbon Dioxide 27 Anion Gap 5 BUN 11 Creatinine 0.81 Est GFR ( Amer) > 60 Est GFR (Non-Af Amer) > 60 Glucose 79 Uric Acid 8.0 H Calcium 7.6 L Total Bilirubin 2.0 H AST 148 H ALT 75 H Alkaline Phosphatase 231 H Total Protein 4.0 L Albumin 1.8 L Amylase 590 H Lipase 3180.0 H Blood Type Antibody Screen 03/05/17 03/05/17 07:34 09:25 WBC RBC Hgb Hct MCV MCH MCHC RDW Plt Count Seg Neutrophils % Lymphocytes % Monocytes % Eosinophils % Basophils % Absolute Neutrophils Absolute Lymphocytes Absolute Monocytes Absolute Eosinophils Absolute Basophils Sodium 137.7 Potassium 4.2 Chloride 106 Carbon Dioxide 27 Anion Gap 5 BUN 10 Creatinine 0.73 Est GFR ( Amer) > 60 Est GFR (Non-Af Amer) > 60 Glucose 70 L Uric Acid 7.7 H Calcium 7.7 L Total Bilirubin 1.4 H AST 113 H ALT 75 H Alkaline Phosphatase 234 H Total Protein 4.0 L Albumin 1.9 L Amylase 431 H Lipase 1646.6 H Blood Type O POSITIVE Antibody Screen NEGATIVE Impressions: Obstetrics Ultrasound 03/01/17 00:00 IMPRESSION: LIMITED OBSTETRICAL ULTRASOUND WITH MEASURED PARAMETERS DELINEATED ABOVE. Trimester of : Third trimester - 28 weeks to delivery. Abdomen Ultrasound 03/04/17 00:00 IMPRESSION: Small gallstones and sludge. Borderline gallbladder wall thickness , 3 mm. No pericholecystic fluid. Assessment & Plan - Diagnosis (1) Chest pain Is this a current diagnosis for this admission?: YesPlan: The patient's chest pain most likely is related to her gallbladder disease. Patient has no risk factors. Patient has developed gallstone pancreatitis overnight. Surgery has been consulted and will perform a cholecystectomy in the near future.. (2) Pre-eclampsia Qualifiers: Trimester: third trimester Qualified Code(s): O14.93 - Unspecified pre-eclampsia, third trimester Is this a current diagnosis for this admission?: YesPlan: Management per MANAGER SALES SUPPORT - Time Time Spent with patient: 25-34 minutes - Inpatient Certification Medical Necessity: Need Close Monitoring Due to Risk of Patient Decompensation
--- NOTE | 2017-03-05 13:15 | PROGRESS NOTE E ---
Progress Note NAME: NANNETTE CHAN : 1995 AGE: 22Y DATE: 03/05/2017 ROOM: LR200 SUBJECTIVE: The patient denies any abdominal pains. She is afebrile and abdomen is soft with practically nontender. Lipase this morning is 1646 and amylase of 431. Her alkaline phosphatase remains slightly elevated at 234. AST is 113 and ALT same at 75. Her white count remains normal. She just had her last dose of magnesium last night for pre-eclampsia. OBJECTIVE: VITAL SIGNS: This morning, temp of 98.6 and a heart rate of 85 with a blood pressure of 152/92. ASSESSMENT: SHE SEEMS TO HAVE STABILIZING GALLSTONE PANCREATITIS. PLAN: Repeat all the blood work in the morning, including serum magnesium and possibly do her lap priyanka Friday when her treatment for pre-eclampsia has been completed and hopefully her amylase and lipase levels have almost normalized. DICTATING PHYSICIAN: MELISSA AYALA M.D. [id number] PHY#: [id number] ID: [id number] JOB#: [id number] ACCT: [id number] cc: >
[2017-03-05] MEDS: OXYCODONE-ACETAMINOPHEN 5-325 MG TABLET PO PRN (14:54)
[2017-03-05] MEDS: NIFEDIPINE 30 MG TAB.ER.24 PO SCH ×2 (15:43→21:47)
[2017-03-05] MEDS: PRENATAL VITAMIN W-O CA NO5/FE FUMARATE/FA CAPSULE PO SCH (15:43)
[2017-03-05] MEDS: DOCUSATE SODIUM 100 MG CAPSULE PO SCH ×2 (15:43→17:43)
[2017-03-05] MEDS ORDERED: IBUPROFEN 800 MG TABLET ONE (17:44)
[2017-03-05] MEDS: IBUPROFEN 800 MG TABLET PO SCH ×2 (19:41→23:45)
[2017-03-05 20:45] LABS: HEMATOCRIT 35.5 % (36.0-47.0); HEMOGLOBIN 12.1 g/dL (12.0-15.5); HGB HCT DIFFERENCE 0.8; MEAN CORPUSCULAR HEMOGLOBIN 29.1 pg (27.0-33.4); MEAN CORPUSCULAR HGB CONC 34.2 g/dL (32.0-36.0); MEAN CORPUSCULAR VOLUME 85 fl (80-97); RED BLOOD COUNT 4.17 10^6/uL (3.72-5.28); RED CELL DISTRIBUTION WIDTH 13.4 % (11.5-14.0); WHITE BLOOD COUNT 10.6 10^3/uL (4.0-10.5)
[2017-03-05 21:02] LABS: ALANINE AMINOTRANSFERASE 61 U/L (9-52); ALKALINE PHOSPHATASE 214 U/L (38-126); AMYLASE 286 U/L (30-110); ASPARTATE AMINO TRANSFERASE 66 U/L (14-36); BILIRUBIN,DIRECT 0.4 mg/dL (0.0-0.4); BILIRUBIN,TOTAL 1.2 mg/dL (0.2-1.3); BLOOD UREA NITROGEN 13 mg/dL (7-20); CALCIUM 7.8 mg/dL (8.4-10.2); CREATININE RESULT 0.82 mg/dL (0.52-1.25); GLUCOSE 96 mg/dL (75-110); LDH 631 U/L (313-618); LIPASE 502.3 U/L (23-300); TOTAL PROTEIN 4.3 g/dL (6.3-8.2)
[2017-03-05 21:09] LABS: ANION GAP 5 (5-19); CARBON DIOXIDE 28 mmol/L (22-30); CHLORIDE 106 mmol/L (98-107); POTASSIUM 4.1 mmol/L (3.6-5.0); SODIUM 138.7 mmol/L (137-145)
[2017-03-06 02:03] LABS: HEMATOCRIT 33.7 % (36.0-47.0); HEMOGLOBIN 11.5 g/dL (12.0-15.5); HGB HCT DIFFERENCE 0.8; MEAN CORPUSCULAR HEMOGLOBIN 29.2 pg (27.0-33.4); MEAN CORPUSCULAR HGB CONC 34.2 g/dL (32.0-36.0); MEAN CORPUSCULAR VOLUME 85 fl (80-97); RED BLOOD COUNT 3.95 10^6/uL (3.72-5.28); RED CELL DISTRIBUTION WIDTH 13.3 % (11.5-14.0); WHITE BLOOD COUNT 9.8 10^3/uL (4.0-10.5)
[2017-03-06 02:16] LABS: ALANINE AMINOTRANSFERASE 56 U/L (9-52); ALBUMIN 1.9 g/dL (3.5-5.0); ALKALINE PHOSPHATASE 192 U/L (38-126); AMYLASE 187 U/L (30-110); ANION GAP 5 (5-19); ASPARTATE AMINO TRANSFERASE 51 U/L (14-36); BILIRUBIN,DIRECT 0.1 mg/dL (0.0-0.4); BILIRUBIN,TOTAL 0.9 mg/dL (0.2-1.3); BLOOD UREA NITROGEN 11 mg/dL (7-20); CALCIUM 7.6 mg/dL (8.4-10.2); CARBON DIOXIDE 26 mmol/L (22-30); CHLORIDE 107 mmol/L (98-107); CREATININE RESULT 0.66 mg/dL (0.52-1.25); GLUCOSE 78 mg/dL (75-110); LDH 571 U/L (313-618); LIPASE 182.9 U/L (23-300); POTASSIUM 4.2 mmol/L (3.6-5.0); SODIUM 137.6 mmol/L (137-145); URIC ACID 7.3 mg/dL (2.5-6.2)
[2017-03-06] MEDS: IBUPROFEN 800 MG TABLET PO SCH ×4 (05:49→23:14)
[2017-03-06 08:02] LABS: ABSOLUTE BASOPHILS # (AUTO) 0.1 10^3/uL (0.0-0.2); ABSOLUTE EOSINOPHILS # (AUTO) 0.4 10^3/uL (0.0-0.6); ABSOLUTE LYMPHOCYTES (AUTO) 2.3 10^3/uL (0.5-4.7); ABSOLUTE MONOCYTES (AUTO) 0.6 10^3/uL (0.1-1.4); ABSOLUTE NEUT (AUTO) 7.1 10^3/uL (1.7-8.2); BASOPHILS % (AUTO) 0.6 % (0-2); EOSINOPHILS % (AUTO) 4.2 % (0-6); MEAN CORPUSCULAR HEMOGLOBIN 29.4 pg (27.0-33.4); MEAN CORPUSCULAR HGB CONC 34.4 g/dL (32.0-36.0); MEAN CORPUSCULAR VOLUME 86 fl (80-97); MONOCYTES % (AUTO) 5.8 % (3-13); RED BLOOD COUNT 4.44 10^6/uL (3.72-5.28); RED CELL DISTRIBUTION WIDTH 13.4 % (11.5-14.0); SEGMENTED NEUTROPHILS % (AUTO) 67.4 % (42-78); WHITE BLOOD COUNT 10.5 10^3/uL (4.0-10.5)
--- NOTE | 2017-03-06 08:04 | PROGRESS NOTE E ---
Progress Note NAME: NANNETTE CHAN : 1995 AGE: 22Y DATE: 03/06/2017 ROOM: [facility] SUBJECTIVE: She remains fairly comfortable, denies any abdominal pains. Temperature is 98 degrees Fahrenheit. Her blood pressure is 137/91, which is just slightly high. She is just recovering from her pre-eclampsia. She had her section done on 03/01 and has been on magnesium until 2 days ago. She has sludge in the gallbladder on ultrasound and her lipase and amylase were elevated. LABORATORY: This morning, her labs show that her amylase has gone down to 187 from 286 yesterday and her lipase down to 183 from 409 yesterday. Her alkaline phosphatase is still slightly elevated at 192 and her AST and ALT have come down, but still slightly elevated at 51 and 56 respectively. Her white count is normal at 9.8 this morning. She is tolerating clear liquids. PLAN: The plan is to do her lap priyanka tomorrow and hopefully she is over the pre-eclampsia episode and her labs continue to normalize. DICTATING PHYSICIAN: MELISSA AYALA M.D. [id number] PHY#: [id number] ID: [id number] JOB#: [id number] ACCT: [id number] cc: >
[2017-03-06 08:37] LABS: ALANINE AMINOTRANSFERASE 53 U/L (9-52); ALBUMIN 2.1 g/dL (3.5-5.0); ALKALINE PHOSPHATASE 237 U/L (38-126); AMYLASE 134 U/L (30-110); ANION GAP 5 (5-19); ASPARTATE AMINO TRANSFERASE 46 U/L (14-36); BILIRUBIN,DIRECT 0.3 mg/dL (0.0-0.4); BILIRUBIN,TOTAL 1.3 mg/dL (0.2-1.3); BLOOD UREA NITROGEN 10 mg/dL (7-20); CARBON DIOXIDE 27 mmol/L (22-30); CHLORIDE 106 mmol/L (98-107); CREATININE RESULT 0.71 mg/dL (0.52-1.25); GLUCOSE 79 mg/dL (75-110); LDH 620 U/L (313-618); LIPASE 124.6 U/L (23-300); SODIUM 138.4 mmol/L (137-145); TOTAL PROTEIN 4.6 g/dL (6.3-8.2); URIC ACID 7.4 mg/dL (2.5-6.2)
[2017-03-06 08:45] LABS: POTASSIUM 4.6 mmol/L (3.6-5.0)
--- NOTE | 2017-03-06 10:24 | PDOC PROGRESS REPORT ---
Subjective Progress Note for:: 03/06/17 Subjective:: Denies abdominal pain today. Physical Exam Vital Signs: Temp Pulse Resp BP Pulse Ox 98.7 F 94 16 140/86 H 95 03/06/17 07:42 03/06/17 07:42 03/06/17 07:42 03/06/17 07:42 03/06/17 07:42 Intake & Output 03/05/17 03/06/17 03/07/17 06:59 06:59 06:59 Intake Total 440 Output Total 480 Balance 440 -480 Weight 121.2 kg General appearance: PRESENT: no acute distress Eye exam: PRESENT: conjunctiva pink. ABSENT: scleral icterus Mouth exam: PRESENT: moist, tongue midline Neck exam: ABSENT: JVD Respiratory exam: PRESENT: clear to auscultation melba. ABSENT: rales, rhonchi, wheezes Cardiovascular exam: PRESENT: RRR. ABSENT: diastolic murmur, rubs, systolic murmur GI/Abdominal exam: PRESENT: normal bowel sounds, soft. ABSENT: distended, guarding, mass, organolmegaly, rebound, tenderness Psychiatric exam: PRESENT: appropriate affect Results Laboratory Results: 03/06/17 07:46 03/06/17 07:46 03/05/17 03/05/17 03/05/17 20:40 20:40 20:40 WBC 10.6 H RBC 4.17 Hgb 12.1 Hct 35.5 L MCV 85 MCH 29.1 MCHC 34.2 RDW 13.4 Plt Count 254 Seg Neutrophils % Lymphocytes % Monocytes % Eosinophils % Basophils % Absolute Neutrophils Absolute Lymphocytes Absolute Monocytes Absolute Eosinophils Absolute Basophils Sodium 138.7 Potassium 4.1 Chloride 106 Carbon Dioxide 28 Anion Gap 5 BUN 13 Creatinine 0.82 Est GFR ( Amer) > 60 Est GFR (Non-Af Amer) > 60 Glucose 96 Uric Acid 8.0 H Calcium 7.8 L Total Bilirubin 1.2 AST 66 H ALT 61 H Alkaline Phosphatase 214 H Total Protein 4.3 L Albumin 2.0 L Amylase 286 H Lipase 502.3 H 409.0 H 03/06/17 03/06/17 03/06/17 01:56 01:56 07:46 WBC 9.8 10.5 RBC 3.95 4.44 Hgb 11.5 L 13.0 Hct 33.7 L 38.0 MCV 85 86 MCH 29.2 29.4 MCHC 34.2 34.4 RDW 13.3 13.4 Plt Count 229 274 Seg Neutrophils % 67.4 Lymphocytes % 22.0 Monocytes % 5.8 Eosinophils % 4.2 Basophils % 0.6 Absolute Neutrophils 7.1 Absolute Lymphocytes 2.3 Absolute Monocytes 0.6 Absolute Eosinophils 0.4 Absolute Basophils 0.1 Sodium 137.6 Potassium 4.2 Chloride 107 Carbon Dioxide 26 Anion Gap 5 BUN 11 Creatinine 0.66 Est GFR ( Amer) > 60 Est GFR (Non-Af Amer) > 60 Glucose 78 Uric Acid 7.3 H Calcium 7.6 L Total Bilirubin 0.9 AST 51 H ALT 56 H Alkaline Phosphatase 192 H Total Protein 4.0 L Albumin 1.9 L Amylase 187 H Lipase 182.9 03/06/17 07:46 WBC RBC Hgb Hct MCV MCH MCHC RDW Plt Count Seg Neutrophils % Lymphocytes % Monocytes % Eosinophils % Basophils % Absolute Neutrophils Absolute Lymphocytes Absolute Monocytes Absolute Eosinophils Absolute Basophils Sodium 138.4 Potassium 4.6 Chloride 106 Carbon Dioxide 27 Anion Gap 5 BUN 10 Creatinine 0.71 Est GFR ( Amer) > 60 Est GFR (Non-Af Amer) > 60 Glucose 79 Uric Acid 7.4 H Calcium 8.0 L Total Bilirubin 1.3 AST 46 H ALT 53 H Alkaline Phosphatase 237 H Total Protein 4.6 L Albumin 2.1 L Amylase 134 H Lipase 124.6 Impressions: Obstetrics Ultrasound 03/01/17 00:00 IMPRESSION: LIMITED OBSTETRICAL ULTRASOUND WITH MEASURED PARAMETERS DELINEATED ABOVE. Trimester of : Third trimester - 28 weeks to delivery. Abdomen Ultrasound 03/04/17 00:00 IMPRESSION: Small gallstones and sludge. Borderline gallbladder wall thickness , 3 mm. No pericholecystic fluid. Assessment & Plan - Diagnosis (1) Chest pain Is this a current diagnosis for this admission?: YesPlan: The patient's chest pain most likely is related to her gallbladder disease. (2) Pre-eclampsia Qualifiers: Trimester: third trimester Qualified Code(s): O14.93 - Unspecified pre-eclampsia, third trimester Is this a current diagnosis for this admission?: YesPlan: Management per BOAT ENGINE MECHANIC (3) Gallstone pancreatitis Is this a current diagnosis for this admission?: YesPlan: Patient is being seen by surgery and hopefully get her gallbladder out tomorrow. - Time Time Spent with patient: 25-34 minutes
[2017-03-06] MEDS: NIFEDIPINE 30 MG TAB.ER.24 PO SCH ×2 (10:42→21:23)
[2017-03-06] MEDS: PRENATAL VITAMIN W-O CA NO5/FE FUMARATE/FA CAPSULE PO SCH (10:42)
[2017-03-06] MEDS: DOCUSATE SODIUM 100 MG CAPSULE PO SCH ×2 (10:42→17:13)
[2017-03-06] MEDS ORDERED: GLUCAGON,HUMAN RECOMB 1 MG INJ SUBCUT PRN (15:57)
[2017-03-06] MEDS ORDERED: DEXTROSE 50%-WATER 25 GM/50 ML DISP.SYRIN IV PRN ×2 (15:57)
[2017-03-06] MEDS ORDERED: DEXTROSE 40% GEL 15 GM TUBE PO PRN ×2 (15:57)
--- NOTE | 2017-03-06 16:10 | PDOC PROGRESS REPORT ---
Subjective Progress Note for:: 03/06/17 Subjective:: feeling better. bp's better controlled. Indicates better pain control. Physical Exam - Physical Exam Vital Signs: Temp Pulse Resp BP Pulse Ox 98.5 F 88 16 143/97 H 97 03/06/17 15:31 03/06/17 15:31 03/06/17 15:31 03/06/17 15:31 03/06/17 15:31 Intake & Output 03/05/17 03/06/17 03/07/17 06:59 06:59 06:59 Intake Total 440 Output Total 480 Balance 440 -480 Weight 121.2 kg General appearance: PRESENT: no acute distress, cooperative Eye exam: PRESENT: conjunctiva pink Mouth exam: PRESENT: moist GI/Abdominal exam: PRESENT: normal bowel sounds, soft, tenderness - appropriate post operative pain. incision c/d/intact Extremities exam: PRESENT: full ROM, +1 edema Result Laboratory Results: 03/06/17 07:46 03/06/17 07:46 03/05/17 03/05/17 03/05/17 20:40 20:40 20:40 WBC 10.6 H RBC 4.17 Hgb 12.1 Hct 35.5 L MCV 85 MCH 29.1 MCHC 34.2 RDW 13.4 Plt Count 254 Seg Neutrophils % Lymphocytes % Monocytes % Eosinophils % Basophils % Absolute Neutrophils Absolute Lymphocytes Absolute Monocytes Absolute Eosinophils Absolute Basophils Sodium 138.7 Potassium 4.1 Chloride 106 Carbon Dioxide 28 Anion Gap 5 BUN 13 Creatinine 0.82 Est GFR ( Amer) > 60 Est GFR (Non-Af Amer) > 60 Glucose 96 Uric Acid 8.0 H Calcium 7.8 L Total Bilirubin 1.2 AST 66 H ALT 61 H Alkaline Phosphatase 214 H Total Protein 4.3 L Albumin 2.0 L Amylase 286 H Lipase 502.3 H 409.0 H 03/06/17 03/06/17 03/06/17 01:56 01:56 07:46 WBC 9.8 10.5 RBC 3.95 4.44 Hgb 11.5 L 13.0 Hct 33.7 L 38.0 MCV 85 86 MCH 29.2 29.4 MCHC 34.2 34.4 RDW 13.3 13.4 Plt Count 229 274 Seg Neutrophils % 67.4 Lymphocytes % 22.0 Monocytes % 5.8 Eosinophils % 4.2 Basophils % 0.6 Absolute Neutrophils 7.1 Absolute Lymphocytes 2.3 Absolute Monocytes 0.6 Absolute Eosinophils 0.4 Absolute Basophils 0.1 Sodium 137.6 Potassium 4.2 Chloride 107 Carbon Dioxide 26 Anion Gap 5 BUN 11 Creatinine 0.66 Est GFR ( Amer) > 60 Est GFR (Non-Af Amer) > 60 Glucose 78 Uric Acid 7.3 H Calcium 7.6 L Total Bilirubin 0.9 AST 51 H ALT 56 H Alkaline Phosphatase 192 H Total Protein 4.0 L Albumin 1.9 L Amylase 187 H Lipase 182.9 03/06/17 07:46 WBC RBC Hgb Hct MCV MCH MCHC RDW Plt Count Seg Neutrophils % Lymphocytes % Monocytes % Eosinophils % Basophils % Absolute Neutrophils Absolute Lymphocytes Absolute Monocytes Absolute Eosinophils Absolute Basophils Sodium 138.4 Potassium 4.6 Chloride 106 Carbon Dioxide 27 Anion Gap 5 BUN 10 Creatinine 0.71 Est GFR ( Amer) > 60 Est GFR (Non-Af Amer) > 60 Glucose 79 Uric Acid 7.4 H Calcium 8.0 L Total Bilirubin 1.3 AST 46 H ALT 53 H Alkaline Phosphatase 237 H Total Protein 4.6 L Albumin 2.1 L Amylase 134 H Lipase 124.6 Impressions: Obstetrics Ultrasound 03/01/17 00:00 IMPRESSION: LIMITED OBSTETRICAL ULTRASOUND WITH MEASURED PARAMETERS DELINEATED ABOVE. Trimester of : Third trimester - 28 weeks to delivery. Abdomen Ultrasound 03/04/17 00:00 IMPRESSION: Small gallstones and sludge. Borderline gallbladder wall thickness , 3 mm. No pericholecystic fluid. Assessment & Plan - Diagnosis (1) Delivery by elective caesarean section Is this a current diagnosis for this admission?: Yes (2) Gallstone pancreatitis Is this a current diagnosis for this admission?: Yes (3) Pancreatitis, acute Qualifiers: Pancreatitis type: biliary Acute pancreatitis complication: no infection or necrosis Qualified Code(s): K85.10 - Biliary acute pancreatitis without necrosis or infection Is this a current diagnosis for this admission?: Yes (4) Pre-eclampsia Qualifiers: Trimester: third trimester Qualified Code(s): O14.93 - Unspecified pre-eclampsia, third trimester Is this a current diagnosis for this admission?: Yes - Time Time Spent with patient: Less than 15 minutes Anticipated discharge: Home Within: within 48 hours - per surgery, plan for cholecystectomy tomorrow. continue to monitor progress and treat bp accordingly. will discharge based on surgery recommendations - Inpatient Certification Based on my medical assessment, after consideration of the patient's comorbidities, presenting symptoms, or acuity I expect that the services needed warrant INPATIENT care.: Yes I certify that my determination is in accordance with my understanding of Medicare's requirements for reasonable and necessary INPATIENT services [42 CFR 412.3e].: Yes Medical Necessity: Need Close Monitoring Due to Risk of Patient Decompensation, Need For IV Fluids, Need for Pain Control, Need for Surgery
[2017-03-06 16:16] LABS: HEMATOCRIT 36.9 % (36.0-47.0); HEMOGLOBIN 12.5 g/dL (12.0-15.5); HGB HCT DIFFERENCE 0.6; MEAN CORPUSCULAR HEMOGLOBIN 28.9 pg (27.0-33.4); MEAN CORPUSCULAR HGB CONC 33.8 g/dL (32.0-36.0); MEAN CORPUSCULAR VOLUME 86 fl (80-97); RED BLOOD COUNT 4.31 10^6/uL (3.72-5.28); RED CELL DISTRIBUTION WIDTH 13.2 % (11.5-14.0); WHITE BLOOD COUNT 10.2 10^3/uL (4.0-10.5)
[2017-03-06 16:34] LABS: ALANINE AMINOTRANSFERASE 50 U/L (9-52); ALBUMIN 2.2 g/dL (3.5-5.0); ALKALINE PHOSPHATASE 217 U/L (38-126); AMYLASE 98 U/L (30-110); ANION GAP 5 (5-19); ASPARTATE AMINO TRANSFERASE 38 U/L (14-36); BILIRUBIN,DIRECT 0.1 mg/dL (0.0-0.4); BLOOD UREA NITROGEN 10 mg/dL (7-20); CALCIUM 8.1 mg/dL (8.4-10.2); CARBON DIOXIDE 26 mmol/L (22-30); CHLORIDE 107 mmol/L (98-107); CREATININE RESULT 0.74 mg/dL (0.52-1.25); GLUCOSE 85 mg/dL (75-110); LDH 629 U/L (313-618); LIPASE 99.4 U/L (23-300); POTASSIUM 4.3 mmol/L (3.6-5.0); TOTAL PROTEIN 4.5 g/dL (6.3-8.2)
[2017-03-07] MEDS: IBUPROFEN 800 MG TABLET PO SCH (05:58)
[2017-03-07 07:15] LABS: HEMATOCRIT 38.3 % (36.0-47.0); HEMOGLOBIN 12.9 g/dL (12.0-15.5); HGB HCT DIFFERENCE 0.4; MEAN CORPUSCULAR HEMOGLOBIN 28.7 pg (27.0-33.4); MEAN CORPUSCULAR HGB CONC 33.6 g/dL (32.0-36.0); MEAN CORPUSCULAR VOLUME 86 fl (80-97); RED BLOOD COUNT 4.48 10^6/uL (3.72-5.28); RED CELL DISTRIBUTION WIDTH 13.3 % (11.5-14.0); WHITE BLOOD COUNT 8.8 10^3/uL (4.0-10.5)
[2017-03-07 07:33] LABS: ALANINE AMINOTRANSFERASE 43 U/L (9-52); ALBUMIN 2.2 g/dL (3.5-5.0); ALKALINE PHOSPHATASE 204 U/L (38-126); ANION GAP 6 (5-19); ASPARTATE AMINO TRANSFERASE 29 U/L (14-36); BILIRUBIN,DIRECT 0.2 mg/dL (0.0-0.4); BILIRUBIN,TOTAL 1.3 mg/dL (0.2-1.3); BLOOD UREA NITROGEN 7 mg/dL (7-20); CALCIUM 8.2 mg/dL (8.4-10.2); CARBON DIOXIDE 24 mmol/L (22-30); CHLORIDE 108 mmol/L (98-107); CREATININE RESULT 0.65 mg/dL (0.52-1.25); GLUCOSE 72 mg/dL (75-110); LDH 576 U/L (313-618); MAGNESIUM 1.7 mg/dL (1.6-2.3); POTASSIUM 4.4 mmol/L (3.6-5.0); SODIUM 138.3 mmol/L (137-145); TOTAL PROTEIN 4.6 g/dL (6.3-8.2); URIC ACID 7.1 mg/dL (2.5-6.2)
[2017-03-07] MEDS ORDERED: HYDROMORPHONE HCL INJ/PF 2 MG/ML AMPULE ONE (07:33)
[2017-03-07] MEDS ORDERED: MIDAZOLAM 2 MG/2 ML INJ ONE (07:34)
[2017-03-07] MEDS ORDERED: FENTANYL CITRATE INJ/PF 100 MCG/2 ML AMPUL ONE ×2 (07:34→09:47)
[2017-03-07] MEDS ORDERED: PROPOFOL INJ 200 MG/20 ML VIAL IV ONE (07:34)
[2017-03-07] MEDS ORDERED: ACETAMINOPHEN 100 ML IV ONE (07:34)
[2017-03-07] MEDS ORDERED: BUPIVACAINE HCL 0.25 % INJ/PF (2.5 MG/1 ML) 30 ML VIAL ONE (07:36)
[2017-03-07] MEDS ORDERED: CEFAZOLIN INJ 1 GM VIAL ONE (08:28)
[2017-03-07] MEDS ORDERED: MORPHINE SULFATE 10 MG/ML INJ IV PRN (08:50)
[2017-03-07] MEDS ORDERED: DIPHENHYDRAMINE HCL 50 MG/ML VIAL IV PRN (08:50)
[2017-03-07] MEDS ORDERED: OXYCODONE-ACETAMINOPHEN 5-325 MG TABLET PO PRN ×3 (08:50→10:25)
[2017-03-07] MEDS ORDERED: PROMETHAZINE HCL INJ 25 MG/1 ML VIAL IV PRN (08:50)
[2017-03-07] MEDS ORDERED: FENTANYL CITRATE INJ/PF 100 MCG/2 ML AMPUL INJ ONE (09:46)
[2017-03-07] MEDS ORDERED: ONDANSETRON HCL INJ/PF 4 MG/2 ML SDV IV PRN (10:24)
[2017-03-07] MEDS ORDERED: NORMAL SALINE 1000 ML 1,000 ML IV PRN (10:26)
[2017-03-07] MEDS ORDERED: MORPHINE SULFATE 10 MG/ML INJ ONE (10:39)
[2017-03-07] MEDS: MORPHINE SULFATE 10 MG/ML INJ IV PRN ×2 (10:56→16:24)
--- NOTE | 2017-03-07 11:53 | OPERATIVE REPORT E ---
Operative Report NAME: NANNETTE CHAN : 1995 AGE: 22Y DATE OF SURGERY: 03/07/2017 ROOM: 209 PREOPERATIVE DIAGNOSIS: Gallstone pancreatitis. POSTOPERATIVE DIAGNOSIS: Gallstone pancreatitis. OPERATION: Laparoscopic cholecystectomy. SURGEON: MELISSA AYALA M.D. ANESTHESIA: General. INDICATIONS: This is a 22-year-old female post section on 03/01/2017 and has preeclampsia. She was noted to have gallstones and sludge in the gallbladder on ultrasound but the common bile duct is normal in diameter. However, her amylase and lipase noted to be elevated indicating gallstone pancreatitis. Possibly passed a very small gallstone. In the meantime, her magnesium therapy for the preeclampsia was finished 2 days ago. Her magnesium level today was 1.7 and all of her amylase and lipase were normal. Her alkaline phosphatase is slightly elevated, however, to 204. DESCRIPTION OF PROCEDURE: After adequate general anesthesia, patient was placed in supine position and the abdomen was prepped and draped in the usual sterile fashion. Appropriate time out was done. A small infraumbilical transverse incision was made and the fascia identified. It was then grasped with Carolee clamps on each side and divided within the Carolee clamps. The abdominal cavity was then entered and finger dissection was done to make sure there were no adhesions. Next, a Saturnino trocar was inserted into the abdominal cavity and balloon inflated and a 10 mm camera inserted through the Saturnino trocar. Next, 3 other trocars of 12 mm in the subxiphoid area towards the right side and two 5 mm in the right upper quadrant. Next, the gallbladder was then identified and noted to be just slightly thickened wall and mild edema. The infundibulum was then grasped and the cystic duct dissected. Cystic artery also identified. Another critical view was noted. The cystic artery was subsequently clipped and divided between the hemoclips. Cystic duct was then clipped and divided between the hemoclips. The gallbladder was then removed from the liver bed with the use of harmonic satnam. The gallbladder was then placed in an Endo bag and pulled out through the umbilical port. It was noted to be slightly distended and somewhat enlarged. I was unable to definitely palpate any stones. The cystic duct was noted to be small as well as the common bile duct which was visualized nicely. Adequate hemostasis was noted of the liver bed. A Peter-Yao drain was then placed in the area of the liver bed. This was placed to make sure there was no leak and this will be removed early tomorrow morning. The trocars were all removed and CO2 allowed to come out through the trocar sites. Next, a [id number] suture was then placed over the infraumbilical fascial defect using 0 Vicryl. A single suture placed at the fascial defect of the subxiphoid trocar site. All the skin incisions were then closed with running subcuticular closure using 4-0 Vicryl. A 3-0 Prolene was then used to anchor the drain to the skin. Dermabond was used as a dressing on top of the incision sites. Needle, instrument, and sponge count were all corrected. Estimated blood loss was minimal. The patient was then brought to the recovery room in satisfactory condition. DICTATING PHYSICIAN: MELISSA AYALA M.D. [id number] PHY#: [id number] ID: [id number] JOB#: [id number] ACCT: [id number] cc:MELISSA AYALA M.D. >
[2017-03-07] MEDS: OXYCODONE-ACETAMINOPHEN 5-325 MG TABLET PO PRN ×2 (12:42→20:51)
[2017-03-07] MEDS: CEFAZOLIN 1 GM/D5W RTU 1 GM/50 ML RTUPB IV SCH (14:00)
[2017-03-07] MEDS ORDERED: GLYCOPYRROLATE INJ 0.4 MG/2 ML VIAL ONE (15:46)
[2017-03-07] MEDS ORDERED: LIDOCAINE 2% INJ-PF (20 MG/ML) 10 ML AMPUL ONE (15:46)
[2017-03-07] MEDS ORDERED: SUCCINYLCHOLINE CHLORIDE INJ 200 MG/10 ML VIAL ONE (15:46)
[2017-03-07] MEDS ORDERED: NEOSTIGMINE METHYLSULFATE 10 MG/10 ML VIAL ONE (15:46)
[2017-03-07] MEDS ORDERED: ONDANSETRON HCL INJ/PF 4 MG/2 ML SDV ONE (15:46)
[2017-03-07] MEDS ORDERED: ROCURONIUM BROMIDE INJ 50 MG/5 ML VIAL IV ONE (15:46)
[2017-03-07] MEDS ORDERED: DEXAMETHASONE SOD PHOSPHATE INJ 4 MG/1 ML VIAL ONE (15:46)
[2017-03-07] MEDS ORDERED: NIFEDIPINE 30 MG TAB.ER.24 PO ONE (20:00)
[2017-03-08] MEDS: CEFAZOLIN 1 GM/D5W RTU 1 GM/50 ML RTUPB IV SCH ×4 (00:29→22:37)
[2017-03-08] MEDS: HEPARIN SOD (PORCINE) 5,000 UNIT/ML 1 ML SYRINGE SUBCUT SCH ×3 (00:31→22:37)
[2017-03-08] MEDS: OXYCODONE-ACETAMINOPHEN 5-325 MG TABLET PO PRN ×2 (04:18→08:23)
[2017-03-08] MEDS: NIFEDIPINE 30 MG TAB.ER.24 PO SCH ×2 (06:57→17:07)
[2017-03-08 07:07] LABS: HEMATOCRIT 36.5 % (36.0-47.0); HEMOGLOBIN 12.5 g/dL (12.0-15.5); MEAN CORPUSCULAR HEMOGLOBIN 29.3 pg (27.0-33.4); MEAN CORPUSCULAR HGB CONC 34.1 g/dL (32.0-36.0); MEAN CORPUSCULAR VOLUME 86 fl (80-97); RED BLOOD COUNT 4.25 10^6/uL (3.72-5.28); RED CELL DISTRIBUTION WIDTH 13.4 % (11.5-14.0); WHITE BLOOD COUNT 9.1 10^3/uL (4.0-10.5)
[2017-03-08 07:24] LABS: ALANINE AMINOTRANSFERASE 36 U/L (9-52); ALBUMIN 2.1 g/dL (3.5-5.0); ALKALINE PHOSPHATASE 182 U/L (38-126); AMYLASE 33 U/L (30-110); ASPARTATE AMINO TRANSFERASE 29 U/L (14-36); BILIRUBIN,DIRECT 0.3 mg/dL (0.0-0.4); BILIRUBIN,TOTAL 0.6 mg/dL (0.2-1.3); LIPASE 70.7 U/L (23-300); TOTAL PROTEIN 4.5 g/dL (6.3-8.2)
[2017-03-08] MEDS: IBUPROFEN 800 MG TABLET PO PRN ×2 (09:49→19:45)
--- NOTE | 2017-03-08 10:20 | PDOC PROGRESS REPORT ---
Subjective Progress Note for:: 03/08/17 Subjective:: She had her gallbladder removed yesterday. Complains of pain in her right upper quadrant. Physical Exam Vital Signs: Temp Pulse Resp BP Pulse Ox 98.6 F 94 16 134/93 H 96 03/08/17 08:09 03/08/17 08:09 03/08/17 08:09 03/08/17 08:09 03/08/17 08:09 Intake & Output 03/07/17 03/08/17 03/09/17 06:59 06:59 06:59 Intake Total 1989 7499 Output Total 2350 1650 Balance -360 5850 Weight 117.4 kg General appearance: PRESENT: no acute distress Eye exam: PRESENT: conjunctiva pink. ABSENT: scleral icterus Mouth exam: PRESENT: moist, tongue midline Neck exam: ABSENT: JVD Respiratory exam: PRESENT: clear to auscultation melba. ABSENT: rales, rhonchi, wheezes Cardiovascular exam: PRESENT: RRR. ABSENT: diastolic murmur, rubs, systolic murmur GI/Abdominal exam: PRESENT: other - Surgical dressing in place. Neurological exam: PRESENT: alert, awake, oriented to person, oriented to place , oriented to time, oriented to situation, CN II-XII grossly intact. ABSENT: motor sensory deficit Psychiatric exam: PRESENT: appropriate affect Results Laboratory Results: 03/08/17 05:45 03/07/17 06:27 03/08/17 03/08/17 05:45 05:45 WBC 9.1 RBC 4.25 Hgb 12.5 Hct 36.5 MCV 86 MCH 29.3 MCHC 34.1 RDW 13.4 Plt Count 318 Total Bilirubin 0.6 AST 29 ALT 36 Alkaline Phosphatase 182 H Total Protein 4.5 L Albumin 2.1 L Amylase 33 Lipase 70.7 Impressions: Obstetrics Ultrasound 03/01/17 00:00 IMPRESSION: LIMITED OBSTETRICAL ULTRASOUND WITH MEASURED PARAMETERS DELINEATED ABOVE. Trimester of : Third trimester - 28 weeks to delivery. Abdomen Ultrasound 03/04/17 00:00 IMPRESSION: Small gallstones and sludge. Borderline gallbladder wall thickness , 3 mm. No pericholecystic fluid. Assessment & Plan - Diagnosis (1) Chest pain Is this a current diagnosis for this admission?: YesPlan: The patient's chest pain is related to her gallbladder disease. (2) Pre-eclampsia Qualifiers: Trimester: third trimester Qualified Code(s): O14.93 - Unspecified pre-eclampsia, third trimester Is this a current diagnosis for this admission?: YesPlan: Management per CRIMINAL ATTORNEY (3) Gallstone pancreatitis Is this a current diagnosis for this admission?: YesPlan: Patient had cholecystectomy done yesterday. She has a drain in place currently. Will give ibuprofen for pain.. - Time Time Spent with patient: 15-24 minutes
--- NOTE | 2017-03-08 11:13 | PDOC PROGRESS REPORT ---
Subjective Progress Note for:: 03/08/17 Subjective:: Pt notes adequate pain control. Passed small amount of flatus since lap priyanka. Physical Exam - Physical Exam Vital Signs: Temp Pulse Resp BP Pulse Ox 98.6 F 94 16 134/93 H 96 03/08/17 08:09 03/08/17 08:09 03/08/17 08:09 03/08/17 08:09 03/08/17 08:09 Intake & Output 03/07/17 03/08/17 03/09/17 06:59 06:59 06:59 Intake Total 1989 7499 Output Total 0 1650 Balance -360 5850 Weight 117.4 kg General appearance: PRESENT: no acute distress GI/Abdominal exam: PRESENT: soft - nl post op tenderness...serosanguinous fluid in drain Pfanenestiel incision I/C/D Extremities exam: PRESENT: other - 3+ edma ble but no calf tenderness or erythema Result Laboratory Results: 03/08/17 05:45 03/07/17 06:27 03/08/17 03/08/17 05:45 05:45 WBC 9.1 RBC 4.25 Hgb 12.5 Hct 36.5 MCV 86 MCH 29.3 MCHC 34.1 RDW 13.4 Plt Count 318 Total Bilirubin 0.6 AST 29 ALT 36 Alkaline Phosphatase 182 H Total Protein 4.5 L Albumin 2.1 L Amylase 33 Lipase 70.7 Impressions: Obstetrics Ultrasound 03/01/17 00:00 IMPRESSION: LIMITED OBSTETRICAL ULTRASOUND WITH MEASURED PARAMETERS DELINEATED ABOVE. Trimester of : Third trimester - 28 weeks to delivery. Abdomen Ultrasound 03/04/17 00:00 IMPRESSION: Small gallstones and sludge. Borderline gallbladder wall thickness , 3 mm. No pericholecystic fluid. Assessment & Plan - Diagnosis (2) Pre-eclampsia Qualifiers: Trimester: third trimester Qualified Code(s): O14.93 - Unspecified pre-eclampsia, third trimester Is this a current diagnosis for this admission?: Yes - Plan Summary Plan Summary: continue procardia xl ready for discharge to [facility] status from OB perspective...management of drain per gen surg
[2017-03-09] MEDS: IBUPROFEN 800 MG TABLET PO PRN (04:37)
[2017-03-09] MEDS: NIFEDIPINE 30 MG TAB.ER.24 PO SCH (06:12)
[2017-03-09] MEDS: CEFAZOLIN 1 GM/D5W RTU 1 GM/50 ML RTUPB IV SCH (06:12)
[2017-03-09] MEDS: HEPARIN SOD (PORCINE) 5,000 UNIT/ML 1 ML SYRINGE SUBCUT SCH (09:53)
--- NOTE | 2017-03-09 11:09 | PDOC DISCHARGE SUMMARY ---
General - Admit/Disc Date/PCP Admission Date/Primary Care Provider: 03/01/17 12:21 DIANE FULLER MD Discharge Date: 03/09/17 - Discharge Diagnosis (1) Delivery by elective caesarean section Is this a current diagnosis for this admission?: Yes (2) Gallstone pancreatitis Is this a current diagnosis for this admission?: Yes (3) S/P laparoscopic cholecystectomy Is this a current diagnosis for this admission?: Yes - Additional Information Resuscitation Status: Full Code Discharge Diet: Regular Discharge Activity: Balance Activity w/Rest, No tub bath Home Medications: [id number]/FA/Omega3/Dha/Fish Oil [ Gummies] 2 each PO DAILY 02/20/17 Ibuprofen [Motrin 800 mg Tablet] 800 mg PO Q8HP PRN #60 tablet 03/09/17 Nifedipine [Procardia XL 30 mg Tablet] 30 mg PO Q12A #14 tab.er.24 03/09/17 History of Present Illness Patient complains of: Patient was admitted with severe preeclampsia as well as pancreatitis from gallstones. History of Present Illness: NANNETTE CHAN is a 22 year old female who was admitted with pancreatitis and severe preeclampsia. She has now undergone a delivery as well as a laparoscopic cholecystectomy. The baby is doing well on the nursery. She is doing well once again able to tolerate regular diet and her pain is controlled with Motrin. Today she is ready to go home. Hospital Course Hospital Course: Her hospital course shows a completed c section and laparoscopic cholecystectomy. Her pain is now much improved and is managed on Motrin. She is able to go home at this time. Physical Exam - Physical Exam Vital Signs: Temp Pulse Resp BP Pulse Ox 98.2 F 94 16 140/88 H 94 03/09/17 04:36 03/09/17 04:36 03/09/17 04:36 03/09/17 04:36 03/09/17 04:36 Intake & Output 03/08/17 03/09/17 03/10/17 06:59 06:59 06:59 Intake Total 7500 850 Output Total 1650 15 Balance 5850 835 General appearance: PRESENT: no acute distress Head exam: PRESENT: atraumatic GI/Abdominal exam: PRESENT: normal bowel sounds, soft. ABSENT: distended, guarding, mass, organolmegaly, rebound, tenderness Result Laboratory Results: 03/08/17 05:45 03/07/17 06:27 Impressions: Obstetrics Ultrasound 03/01/17 00:00 IMPRESSION: LIMITED OBSTETRICAL ULTRASOUND WITH MEASURED PARAMETERS DELINEATED ABOVE. Trimester of : Third trimester - 28 weeks to delivery. Abdomen Ultrasound 03/04/17 00:00 IMPRESSION: Small gallstones and sludge. Borderline gallbladder wall thickness , 3 mm. No pericholecystic fluid. Plan Discharge Plan: Home today on Motrin. Follow-up in office later this week and follow up with Gen. surgery as planned. Time Spent: Less than 30 Minutes - Patient instructed on no driving no heavy lifting. She is allowed to shower. I have asked that she not take tub bath this time. I have also written a prescription for electric breast pump.
[2017-03-09 12:13] VITALS: BP 140/91
--- NOTE | 2017-03-09 23:42 | Admission Physical ---
Datetime Report Generated by CPN: 03/09/2017 23:41 CURRENT ADMISSION Hx Assessment: The History has been Reviewed and is Current Chief Complaint: Signs/Symptoms Gestational HTN Indication for Induction: Not Applicable Admit Plan: Observation/Evaluation ALLERGIES Medication Allergies: No Medication Allergies: No Known Allergies (02/28/2017) Medication Allergies: No Known Allergies (02/16/2017) Medication Allergies: No Known Allergies (08/26/2016) Latex: No Latex Allergies Food Allergies: none Environmental Allergies: none OBSTETRICAL HISTORY EDC: 04/08/2017 00:00 : 1 Para: 0 Term: 0 : 0 SAB: 0 IAB: 0 Ectopic: 0 Livin Cesareans: 0 VBACs: 0 Multiple Births: 0 Gestational Diabetes: No Rh Sensitization: No Incompetent Cervix: No ERNESTINE: No Infertility: No ART Treatment: No Uterine Anomaly: No IUGR: No Hx Previous C/S: No Macrosomia: No Hx Loss/Stillborn: No PIH: Yes Hx : No Placenta Previa/Abruption: No Depression/PP Depression: No PTL/PROM: No Post Hemorrhage: No Current Procedures: Ultrasound Obstetrical History Comments: 2016 current (hyper emesis, gallbladder issues) SEE RECORDS Alcohol: No Marijuana : No Cocaine: No Other Illicit Drugs: No Cigarettes: Never Smoker. 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 Surgery: No Heart Disease: No Hosp/Surgery: No Autoimmune Disorder: No Anesthetic Complications: No Kidney Disease: No Abnormal Pap Smear: No Neuro/Epilepsy: No Psychiatric Disorders: No Other Medical Diseases: No Hepatitis/Liver Disease: No Significant Family History: No Varicosities/Phlebitis: No Trauma/Violence : No Thyroid Dysfunction: No INFECTIOUS HISTORY Gonorrhea: No Genital Herpes: No Chlamydia: No Tuberculosis: No Syphilis: No Hepatitis: No HIV/AIDS Exposure: No Rash or Viral Illness: No HPV: No PHYSICAL EXAM General: Normal HEENT: Normal Neurologic: Normal Thyroid: Deferred Heart: Normal Lungs: Normal Breast: Normal Back: Normal Abdomen: Normal Genitourinary Exam: Normal Extremities: Normal DTRs: Normal Pelvic Type: Adequate Vital Signs: Reviewed Details Vital Signs: elevated bp VAGINAL EXAM Dilatation: 1 Dilatation: 1 Effacement: 0 Effacement: 0 Station: -3 Station: -3 MEMBRANES Membranes: Intact FETUS A EGA: 34.3 Monitoring: External US FHR- Baseline: 155 Variability: Moderate 6-25bpm Decelerations: None FHR Category: Category I Admit Comment: Pt sent in from office for elevated bp, 4+ protien on urine dip, denies headache, visual dist, epigastric pain. See labs and record for complete hx admit to [facility], obs 24 hour urine serial bp's repeat labs in the am and ressess PLANS FOR LABOR AND DELIVERY Labor and Delivery: None Pain Management: Natural Feeding Preference: Breast Benefit of Breast Feed Discussed: Yes Circumcision: N/A INFORMED CONSENT Informed Consent Obtained: Section Delivery; Risks, Benefits and Alternatives Discussed Informed Consent Obtained: Vaginal Delivery; Section Delivery; Risks, Benefits and Alternatives Discussed Informed Consent Obtained: Vaginal Delivery; Induction of Labor; Risks, Benefits and Alternatives Discussed Informed Consent Obtained- Other: magnesium Assignment: Harika Gonzalez MD Signature: with User ID: Mckenzie Signature: with User ID: Mckenzie : with User ID: [email or web address] : with User ID: [email or web address]
== END 2017-03-09 13:00 | disposition home or self-care (01) | DRG 765 ==
LOC: LC 10:26 → LR 14:52 → 2S 16:32 → LR 03-01 11:35 → OBSVTOIN 03-01 12:21 → 2S 03-03 14:47 → LR 03-04 16:31 → 2N 03-05 14:15
PROVIDERS: ADMIT Obstetrics & Gynecology; ATTEND Obstetrics & Gynecology
PROC: 10D00Z1 Extraction of Products of Conception, Low, Open Approach (ICD-10-PCS; principal; 2017-03-01)
PROC: 4A1HXCZ Monitoring of Products of Conception, Cardiac Rate, External Approach (ICD-10-PCS; 2017-03-01)
PROC: 0FT44ZZ Resection of Gallbladder, Percutaneous Endoscopic Approach (ICD-10-PCS; 2017-03-07)
DX: O14.14 Severe pre-eclampsia complicating childbirth (principal); K85.10 Biliary acute pancreatitis without necrosis or infection; K80.10 Calculus of gallbladder with chronic cholecystitis without obstruction; O99.63 Diseases of the digestive system complicating the puerperium; O69.81X0 Labor and delivery complicated by cord around neck, without compression, not applicable or unspecified; Z3A.34 34 weeks gestation of pregnancy; Z37.0 Single live birth; R07.89 Other chest pain
CPT/HCPCS: 1961; 36415; 76705; 76815; 790; 80053; 80076; 80307; 81001; 82150; 83615; 83690; 83735; 84550; 85025; 85027; 85610; 85730; 86850; 86900; 86901; 87081; 88304; 88307; 94799; C1765; J0131; J0330; J0360; J0456; J0690; J1100; J1170; J1200; J1644; J1885; J2175; J2250; J2270; J2405; J2590; J2704; J3010; J3475; J3490

== ENCOUNTER 2017-06-14 07:38 | Emergency (ER) | payer BC, MEDICAID ==
[2017-06-14 07:49] VITALS: BP 129/87
--- NOTE | 2017-06-14 08:02 | ER Document Report ---
HPI - HPI Patient complains to provider of: skin irritation Onset: Other - 5 days Onset/Duration: Better Quality of pain: Other - itchy Pain Level: Denies Context: Patient presents to the emergency department with complaints of rash to her left lateral thigh that started approximately 5 days ago. Patient reports site looks better. No drainage, warmth or vesicles. She denies shortness of breath trouble breathing. She denies fever vomiting diarrhea. She reports she is extremely allergic to poison kiki but has had no known recent contact. Associated Symptoms: None Exacerbated by: Denies Relieved by: Denies Similar symptoms previously: No Recently seen / treated by doctor: No - REPRODUCTIVE LMP: 06/08/17 Reproductive: REPORTS: : - DERM Skin Color: Normal Past Medical History - General Information source: Patient - Social History Smoking Status: Unknown if Ever Smoked Cigarette use (# per day): No Frequency of alcohol use: None Drug Abuse: None Lives with: Family Family History: Reviewed & Not Pertinent Patient has suicidal ideation: No Patient has homicidal ideation: No Pulmonary Medical History: Reports: Hx Bronchitis, Hx Pneumonia Renal/ Medical History: Denies: Hx Peritoneal Dialysis Past Surgical History: Reports: Hx Section - Immunizations Hx Diphtheria, Pertussis, Tetanus Vaccination: Yes Vertical Provider Document - CONSTITUTIONAL Agree With Documented VS: Yes Exam Limitations: No Limitations General Appearance: WD/WN, No Apparent Distress - INFECTION CONTROL TRAVEL OUTSIDE OF THE [place] IN LAST 30 DAYS: No - HEENT HEENT: Atraumatic, Normal ENT Exam, Normocephalic, PERRLA. negative: Pharyngeal Exudate, Pharyngeal Erythema - good airway, no sob, no difficulty breathing, opens mouth wide - NECK Neck: Normal Inspection, Supple. negative: Lymphadenopathy-Left, Lymphadenopathy-Right - RESPIRATORY Respiratory: Breath Sounds Normal, No Respiratory Distress O2 Sat by Pulse Oximetry: 97 - CARDIOVASCULAR Cardiovascular: Regular Rate, Regular Rhythm - MUSCULOSKELETAL/EXTREMETIES Musculoskeletal/Extremeties: MARGE DIAZ - NEURO Level of Consciousness: Awake, Alert, Appropriate Motor/Sensory: No Motor Deficit - DERM Integumentary: Warm, Dry, Rash Adult Front & Back Diagram: 1 - ~5 cm erythema long, 1 cm wide, flat, no vesicles with 2 round erythema macules, all in linear row. no warmth, no discharge Course - Vital Signs Vital signs: Temp Pulse Resp BP Pulse Ox 98.4 F 77 17 129/87 H 97 06/14/17 07:46 06/14/17 07:46 06/14/17 07:46 06/14/17 07:46 06/14/17 07:46 Discharge - Discharge Clinical Impression: Skin irritation, Elevated blood pressure reading Condition: Stable Disposition: HOME, SELF-CARE Instructions: Use of Diphenhydramine, Poison Kiki ([facility]) Additional Instructions: *You have been treated for skin irritation, possible exposure to poison kiki *Take benadryl as indicated *Monitor the site for signs of infection such as pain,redness, swelling, warmth *Avoid itching, place cool packs on site for irritating itch *Follow up with a primary care provider within one week for recheck *Return to ED for signs of infection, worsening condition, changes, needs Monitor your blood pressure. Your blood pressure was slightly elevated today. This may be because you were anxious, in pain or because you need medication. It is important to follow up with your primary care provider for full evaluation. Forms: Elevated Blood Pressure
== END 2017-06-14 08:13 | disposition home or self-care (01) ==
LOC: ER 07:38
DX: R21 Rash and other nonspecific skin eruption (principal); R03.0 Elevated blood-pressure reading, without diagnosis of hypertension
CPT/HCPCS: 99282

== ENCOUNTER 2017-08-08 09:01 | Emergency (ER) | payer BC, MEDICAID ==
[2017-08-08] MEDS ORDERED: NORMAL SALINE 1000 ML 1,000 ML IV ONE (09:31)
[2017-08-08] MEDS ORDERED: ONDANSETRON HCL INJ/PF 4 MG/2 ML SDV IV ONE (09:31)
--- NOTE | 2017-08-08 09:45 | ER Document Report ---
ED General - General Chief Complaint: Nausea/Vomiting Stated Complaint: NAUSEA/VOMITTING Time Seen by Provider: 08/08/17 09:21 Mode of Arrival: Ambulatory Information source: Patient Notes: 22-year-old female presents emergency department complaining of diffuse cramping abdominal pain associated with vomiting and diarrhea but denies fevers and chills since she ate some sausage that was left out of the refrigerator for prolonged period of time yesterday. The vomiting and diarrhea started last night, vomiting started first followed by diarrhea. States this does not feel similar to prior bouts of pancreatitis. States the symptoms are relieved by Zofran but after sleeping for most of the night when she woke up the vomiting returned. Pain is mild and cramping in nature. Patient also wonders if she could be . TRAVEL OUTSIDE OF THE [place] IN LAST 30 DAYS: No - Related Data Allergies/Adverse Reactions: No Known Allergies Allergy (Verified 08/08/17 09:13) Past Medical History - General Information source: Patient - Social History Smoking Status: Never Smoker Chew tobacco use (# tins/day): No Frequency of alcohol use: None Drug Abuse: None Family History: Reviewed & Not Pertinent Patient has suicidal ideation: No Patient has homicidal ideation: No Pulmonary Medical History: Reports: Hx Bronchitis, Hx Pneumonia Renal/ Medical History: Denies: Hx Peritoneal Dialysis Past Surgical History: Reports: Hx Section, Hx Cholecystectomy - Immunizations Hx Diphtheria, Pertussis, Tetanus Vaccination: Yes Review of Systems - Review of Systems Constitutional: No symptoms reported EENT: No symptoms reported Gastrointestinal: See HPI, Abdominal pain, Diarrhea, Vomiting Female Genitourinary: See HPI, Last menstrual period - 08/05/2017 -: Yes All other systems reviewed and negative Physical Exam - Vital signs Vitals: Temp Pulse Resp BP Pulse Ox 97.4 F 119 H 20 120/72 98 08/08/17 09:12 08/08/17 09:12 08/08/17 09:12 08/08/17 09:12 08/08/17 09:12 Interpretation: Tachycardic - Notes Notes: GENERAL: Alert, interacts well. No acute distress. HEAD: Normocephalic, atraumatic EYES: Pupils equal, round and reactive to light, extraocular movements intact. ENT: Oral mucosa moist, tongue midline. NECK: Full range of motion, supple, trachea midline. LUNGS: Clear to auscultation bilaterally, no wheezes, rales or rhonchi, no respiratory distress. HEART: Regular rate and rhythm, no murmurs, gallops, rubs. ABDOMEN: Soft, mild epigastric abdominal pain with palpation, no guarding, rigidity or rebounding, nondistended, bowel sounds present in all 4 quadrants. EXTREMITIES: Moves all 4 extremities spontaneously. No cyanosis. NEUROLOGICAL: Alert and oriented x3, normal speech. PSYCH: Normal mood, normal affect. SKIN: Warm, Dry, normal turgor, no rashes or lesions noted. Course - Re-evaluation Re-evalutation: 08/08/17 11:25 CMP shows slightly elevated bilirubin at 2.1 and direct bilirubin elevated at 0.5, normal lipase, otherwise normal LFTs, no signs of dehydration, test is negative, urinalysis does not show any signs of dehydration or obstruction. Patient had one episode of emesis here and then no further emesis after getting IV fluids and IV Zofran. Was able to drink water without difficulty, feeling much better, no further diarrhea. Patient will be discharged home. Symptoms consistent with food poisoning, encouraged to follow proper food safety protocols and avoid greasy food for the next 48 hours. - Vital Signs Vital signs: Temp Pulse Resp BP Pulse Ox 97.4 F 119 H 20 120/72 98 08/08/17 09:12 08/08/17 09:12 08/08/17 09:12 08/08/17 09:12 08/08/17 09:12 - Laboratory Result Diagrams: 08/08/17 09:31 Laboratory results interpreted by me: 08/08/17 08/08/17 09:31 10:00 Glucose 126 H Total Bilirubin 2.1 H Direct Bilirubin 0.5 H Urine Protein 30 H Urine Urobilinogen 2.0 H Discharge - Discharge Clinical Impression: Nausea vomiting and diarrhea Condition: Stable Disposition: HOME, SELF-CARE Additional Instructions: Use the Zofran as directed for nausea. Use Imodium as directed on the box for diarrhea. You may also follow the BRAT diet (bananas, rice, applesauce, toast) and other bland foods to decrease diarrhea. Return for fevers, worsening pain or uncontrollable vomiting and diarrhea. Prescriptions: Ondansetron [Zofran Odt 4 mg Tablet] 1 - 2 tab PO Q4H PRN #15 tab.rapdis PRN Reason: For Nausea/Vomiting Forms: Parent Work Note
[2017-08-08 10:36] LABS: ALANINE AMINOTRANSFERASE 42 U/L (9-52); ALBUMIN 4.5 g/dL (3.5-5.0); ALKALINE PHOSPHATASE 75 U/L (38-126); ANION GAP 12 (5-19); ASPARTATE AMINO TRANSFERASE 25 U/L (14-36); BILIRUBIN,DIRECT 0.5 mg/dL (0.0-0.4); BILIRUBIN,TOTAL 2.1 mg/dL (0.2-1.3); BLOOD UREA NITROGEN 20 mg/dL (7-20); CALCIUM 9.5 mg/dL (8.4-10.2); CARBON DIOXIDE 27 mmol/L (22-30); CHLORIDE 103 mmol/L (98-107); CREATININE RESULT 0.79 mg/dL (0.52-1.25); GLUCOSE 126 mg/dL (75-110); LIPASE 58.6 U/L (23-300); POTASSIUM 4.4 mmol/L (3.6-5.0); SODIUM 142.1 mmol/L (137-145); TOTAL PROTEIN 7.6 g/dL (6.3-8.2)
[2017-08-08 10:41] LABS: APPEARANCE,URINE CLEAR; BILIRUBIN,URINE NEGATIVE (NEGATIVE); GLUCOSE, URINE NEGATIVE (NEGATIVE); KETONES,URINE NEGATIVE (NEGATIVE); LEUKOCYTE ESTERASE,URINE NEGATIVE (NEGATIVE); NITRITE,URINE NEGATIVE (NEGATIVE); PROTEIN,URINE 30 mg/dL (NEGATIVE); URINE SPECIFIC GRAVITY 1.027
[2017-08-08 11:41] VITALS: BP 107/64
== END 2017-08-08 11:50 | disposition home or self-care (01) ==
LOC: ER 09:01
DX: R11.2 Nausea with vomiting, unspecified (principal); R19.7 Diarrhea, unspecified; R10.84 Generalized abdominal pain; R00.0 Tachycardia, unspecified; Z87.19 Personal history of other diseases of the digestive system; Z90.49 Acquired absence of other specified parts of digestive tract
CPT/HCPCS: 99283; 96361; 96374; 36415; 83690; 84703; 80053; 81001; J2405; J7030

== ENCOUNTER 2018-06-06 17:02 | Emergency (ER) | payer BC, MEDICAID ==
[2018-06-06 17:08] VITALS: BP 128/80
[2018-06-06] MEDS ORDERED: DIPH/PERTUSS(ACELL)/TETANUS VAC/PF 0.5 ML SYR (>=10YO) IM ONE (17:24)
--- NOTE | 2018-06-06 17:28 | ER Document Report ---
HPI - HPI Patient complains to provider of: poison kiki rash Onset: Last week Quality of pain: Other - itchy Pain Level: 3 Context: Patient presents to the ED with c/o recent exposure to poison kiki rash to the back of her legs.. She reports she was walking her dogs in the park and was exposed to poison kiki last week. She reports she is very allergic to it. She has been applying caladryl and the rash is not gone. She is traveling to [place] next week and worried the rash will become worse. Patient has not washed her two bengali shepards. Denies other symptoms such as fever nausea vomiting. Associated Symptoms: None Exacerbated by: Denies Relieved by: Denies Similar symptoms previously: Yes Recently seen / treated by doctor: No - REPRODUCTIVE Reproductive: REPORTS: : Past Medical History - General Information source: Patient Last Menstrual Period: 3 weeks ago - Social History Smoking Status: Unknown if Ever Smoked Cigarette use (# per day): No Frequency of alcohol use: None Drug Abuse: None Lives with: Family Family History: Reviewed & Not Pertinent Patient has suicidal ideation: No Patient has homicidal ideation: No Pulmonary Medical History: Reports: Hx Bronchitis, Hx Pneumonia Renal/ Medical History: Denies: Hx Peritoneal Dialysis Past Surgical History: Reports: Hx Section, Hx Cholecystectomy - Immunizations Hx Diphtheria, Pertussis, Tetanus Vaccination: Yes Vertical Provider Document - CONSTITUTIONAL Agree With Documented VS: Yes Exam Limitations: No Limitations General Appearance: WD/WN, No Apparent Distress - INFECTION CONTROL TRAVEL OUTSIDE OF THE [place] IN LAST 30 DAYS: No - HEENT HEENT: Atraumatic, Normocephalic - NECK Neck: Normal Inspection, Supple - RESPIRATORY Respiratory: No Respiratory Distress - CARDIOVASCULAR Cardiovascular: Regular Rate - MUSCULOSKELETAL/EXTREMETIES Musculoskeletal/Extremeties: MAEW, FROM, Non-Tender - NEURO Level of Consciousness: Awake, Alert, Appropriate Motor/Sensory: No Motor Deficit - DERM Integumentary: Warm, Dry, Rash Adult Front & Back Diagram: 1 - dry rash , no erythema, discharge, no weeping 2 - scattered patches of dry flat skin irritation, no erythema, no warmth, no discharge Course - Re-evaluation Re-evalutation: 06/06/18 17:49 pt started on signs and symptoms of infection. She was instructed to continue with the Caladryl Benadryl as indicated monitor the site return for signs of infection or worsening. - Vital Signs Vital signs: Temp Pulse Resp BP Pulse Ox 98.1 F 90 16 128/80 H 97 06/06/18 17:06 06/06/18 17:06 06/06/18 17:06 06/06/18 17:06 06/06/18 17:06 Discharge - Discharge Clinical Impression: poison kiki rash Condition: Stable Disposition: HOME, SELF-CARE Instructions: Use of Diphenhydramine, Poison Kiki ([facility]) Additional Instructions: *You have been treated for a rash, poison kiki exposure *Take benadryl as indicated *Continue to use caladryl *Monitor the site for signs of infection such as increasing pain,redness, swelling, warmth *Keep the area clean *Wash your dogs *Follow up with a primary care provider within 5 days for a recheck or return to ED for signs of infection, worsening condition, changes, needs Monitor your blood pressure. Your blood pressure was elevated today. This may be because you were anxious, in pain or because you need medication. It is important to follow up with your primary care provider for full evaluation. Forms: Elevated Blood Pressure
== END 2018-06-06 17:49 | disposition home or self-care (01) ==
LOC: ER 17:02
DX: O99.719 Diseases of the skin and subcutaneous tissue complicating pregnancy, unspecified trimester (principal); L23.7 Allergic contact dermatitis due to plants, except food; Z3A.00 Weeks of gestation of pregnancy not specified
CPT/HCPCS: 99282

== ENCOUNTER 2018-06-08 17:53 | Emergency (ER) | payer SELFPAY ==
[2018-06-08 18:10] VITALS: BP 134/73
--- NOTE | 2018-06-08 18:24 | ER Document Report ---
HPI - HPI Patient complains to provider of: otis weaver Onset: Other - 8 days Onset/Duration: Gradual, Worse Pain Level: 3 Context: 23 yo female developed kunien meg last friday, looked like a scratch from a leaf posterior left upper thigh, itched at first, burning pain now. More painful now. Non diabetic. Thinks she needs antibiotics. - REPRODUCTIVE Reproductive: REPORTS: : Past Medical History - General Information source: Patient - Social History Smoking Status: Never Smoker Frequency of alcohol use: None Drug Abuse: None Lives with: Family Family History: Reviewed & Not Pertinent Pulmonary Medical History: Reports: Hx Bronchitis, Hx Pneumonia Renal/ Medical History: Denies: Hx Peritoneal Dialysis Past Surgical History: Reports: Hx Section, Hx Cholecystectomy - Immunizations Hx Diphtheria, Pertussis, Tetanus Vaccination: Yes Vertical Provider Document - CONSTITUTIONAL Agree With Documented VS: Yes Exam Limitations: No Limitations General Appearance: No Apparent Distress - INFECTION CONTROL TRAVEL OUTSIDE OF THE [place] IN LAST 30 DAYS: No - DERM Integumentary: Rash - round scaling, red, tender, crusted lesion 12 cm posterior left upper iithigh Course - Vital Signs Vital signs: Temp Pulse Resp BP Pulse Ox 98.8 F 108 H 16 134/73 H 97 06/08/18 18:09 06/08/18 18:09 06/08/18 18:09 06/08/18 18:09 06/08/18 18:09 Discharge - Discharge Clinical Impression: infected otis weaver rash Condition: Good Disposition: HOME, SELF-CARE Instructions: Contact Dermatitis ([facility]), Cephalexin ([facility]) Additional Instructions: topical benadryl, or vaseline and keep covered so it won't stick on furniture and clothing cephelexin for the infection return if worsen Prescriptions: Cephalexin Monohydrate [Keflex 500 mg Capsule] 500 mg PO QID #28 capsule Referrals: INNA CANTU NP [COMMUNITY BASED STAFF] - Follow up as needed
== END 2018-06-08 18:40 | disposition home or self-care (01) ==
LOC: ER 17:53
DX: O99.719 Diseases of the skin and subcutaneous tissue complicating pregnancy, unspecified trimester (principal); L23.7 Allergic contact dermatitis due to plants, except food; L08.9 Local infection of the skin and subcutaneous tissue, unspecified; Z3A.00 Weeks of gestation of pregnancy not specified
CPT/HCPCS: 99282

== ENCOUNTER 2018-06-24 10:56 | Emergency (ER) | payer SELFPAY ==
[2018-06-24 11:03] VITALS: BP 121/79
[2018-06-24] MEDS ORDERED: FLUCONAZOLE 100 MG TABLET PO ONE (11:53)
--- NOTE | 2018-06-24 11:57 | ER Document Report ---
HPI - HPI Patient complains to provider of: Yeast infection Onset: Last week Onset/Duration: Persistent Pain Level: Denies Context: Patient states that she went to a water park last week and since then has had a yeast infection. Patient complains of rash and pruritus to the perineum. Patient also reports some sinus congestion and cough that started yesterday. Patient denies any history of diabetes. Associated Symptoms: Nonproductive cough, Rhinnorhea, Other - Skin rash Exacerbated by: Denies Relieved by: Denies Similar symptoms previously: Yes Recently seen / treated by doctor: No - ROS Systems Reviewed and Negative: Yes All other systems reviewed and negative - CONSTITUTIONAL Constitutional: DENIES: Fever - EENT EENT: REPORTS: Sore Throat, Congestion - RESPIRATORY Respiratory: REPORTS: Coughing - GASTROINTESTINAL Gastrointestinal: DENIES: Patient vomiting - REPRODUCTIVE Reproductive: DENIES: : - DERM Skin Color: Normal Skin Problems: Rash Past Medical History - General Information source: Patient - Social History Smoking Status: Never Smoker Chew tobacco use (# tins/day): No Frequency of alcohol use: None Drug Abuse: None Occupation: None Lives with: Family Family History: Reviewed & Not Pertinent Patient has suicidal ideation: No Patient has homicidal ideation: No Pulmonary Medical History: Reports: Hx Bronchitis, Hx Pneumonia Renal/ Medical History: Denies: Hx Peritoneal Dialysis Past Surgical History: Reports: Hx Section, Hx Cholecystectomy - Immunizations Hx Diphtheria, Pertussis, Tetanus Vaccination: Yes Vertical Provider Document - CONSTITUTIONAL Agree With Documented VS: Yes Exam Limitations: No Limitations General Appearance: WD/WN, No Apparent Distress - INFECTION CONTROL TRAVEL OUTSIDE OF THE [place] IN LAST 30 DAYS: No - HEENT HEENT: Atraumatic, Normocephalic, Pharyngeal Tenderness, Pharyngeal Erythema. negative: Pharyngeal Exudate Notes: Clear rhinorrhea - NECK Neck: Normal Inspection, Supple. negative: Lymphadenopathy-Left, Lymphadenopathy-Right - RESPIRATORY Respiratory: No Respiratory Distress, Chest Non-Tender, Other - Occasional dry cough - CARDIOVASCULAR Cardiovascular: Regular Rate, Regular Rhythm, No Murmur - REPRODUCTIVE Female Genitalia: Abnormal Inspection - Patient with erythematous rash with scattered satellite lesions to perineum - BACK Back: Normal Inspection - MUSCULOSKELETAL/EXTREMETIES Musculoskeletal/Extremeties: MARGE DIAZ - NEURO Level of Consciousness: Awake, Alert, Appropriate Motor/Sensory: No Motor Deficit - DERM Integumentary: Warm, Dry, Rash - See above Course - Vital Signs Vital signs: Temp Pulse Resp BP Pulse Ox 98.7 F 94 14 121/79 98 06/24/18 11:02 06/24/18 11:02 06/24/18 11:02 06/24/18 11:02 06/24/18 11:02 - Laboratory Laboratory results interpreted by me: 06/24/18 12:59 Labs- Entire Visit 06/24/18 06/24/18 11:52 11:54 POC Glucose 96 Group A Strep Rapid NEGATIVE Discharge - Discharge Clinical Impression: Sore throat (viral), Yeast dermatitis Condition: Stable Disposition: HOME, SELF-CARE Instructions: Sore Throat ([facility]), Upper Respiratory Illness ([facility]), Vaginal Yeast Infection ([facility]) Additional Instructions: Return immediately for any new or worsening symptoms Followup with your primary care provider, call tomorrow to make a followup appointment Throat culture is pending, we will call if you need any different treatment Prescriptions: Clotrimazole [Clotrimazole-7] 1 applic TOP QHS #1 cream.[email or web address] Referrals: [facility] [Provider Group] - Follow up as needed
== END 2018-06-24 13:10 | disposition home or self-care (01) ==
LOC: ER 10:56
DX: J02.9 Acute pharyngitis, unspecified (principal); L30.8 Other specified dermatitis; J34.89 Other specified disorders of nose and nasal sinuses; R09.81 Nasal congestion; R05 Cough
CPT/HCPCS: 82962; 87070; 87880; 99283

== ENCOUNTER 2018-11-28 09:53 | Emergency (ER) | payer BC, MEDICAID ==
--- NOTE | 2018-11-28 10:35 | RADIOLOGY REPORT (SQ) ---
EXAM DESCRIPTION: ANKLE LEFT COMPLETE COMPLETED DATE/TIME: 11/28/2018 10:24 am REASON FOR STUDY: fell last night COMPARISON: None. NUMBER OF VIEWS: Three views. TECHNIQUE: AP, lateral, and oblique radiographic images acquired of the left ankle. LIMITATIONS: None. FINDINGS: MINERALIZATION: Normal. BONES: No acute fracture or dislocation. No worrisome bone lesions. JOINTS: No effusions. SOFT TISSUES: No soft tissue swelling. No foreign body. OTHER: No other significant finding. IMPRESSION: NEGATIVE STUDY OF THE LEFT ANKLE. NO RADIOGRAPHIC EVIDENCE OF ACUTE INJURY. TECHNICAL DOCUMENTATION: JOB ID: [id number] [employer]- All Rights Reserved Reading location - IP[facility]workstation name: [email or web address]
--- NOTE | 2018-11-28 10:44 | ER Document Report ---
HPI - HPI Time Seen by Provider: 11/28/18 09:58 Pain Level: 2 Notes: Patient is an otherwise healthy 23-year-old female who presents with chief complaint of left ankle pain. Patient reports pain started last night after she fell and rolled her ankle. - REPRODUCTIVE LMP: 06/24/18 Reproductive: REPORTS: : - MUSCULOSKELETAL Musculoskeletal: REPORTS: Extremity pain - L ankle Past Medical History - General Information source: Patient - Social History Smoking Status: Never Smoker Chew tobacco use (# tins/day): No Frequency of alcohol use: None Drug Abuse: None Family History: Reviewed & Not Pertinent Patient has suicidal ideation: No Patient has homicidal ideation: No Pulmonary Medical History: Reports: Hx Bronchitis, Hx Pneumonia Renal/ Medical History: Denies: Hx Peritoneal Dialysis Past Surgical History: Reports: Hx Section, Hx Cholecystectomy - Immunizations Hx Diphtheria, Pertussis, Tetanus Vaccination: Yes Vertical Provider Document - CONSTITUTIONAL Notes: PHYSICAL EXAMINATION: GENERAL: Well-appearing, well-nourished and in no acute distress. HEAD: Atraumatic, normocephalic. EYES: Pupils equal round extraocular movements intact, conjunctiva are normal. ENT: Nares patent NECK: Normal range of motion LUNGS: No respiratory distress Musculoskeletal: Normal range of motion, mild swelling to noted to the medial aspect of the left ankle. Cap refill less than 3 seconds, normal motor pulses and sensation distal to injury. NEUROLOGICAL: Normal speech, normal gait. PSYCH: Normal mood, normal affect. SKIN: Warm, Dry, normal turgor, no rashes or lesions noted. - INFECTION CONTROL TRAVEL OUTSIDE OF THE [place] IN LAST 30 DAYS: No Course - Re-evaluation Re-evalutation: X-ray of the left ankle negative for any acute fracture or dislocation. Ankle stirrup splint will be placed and patient will be discharged home in stable condition. - Vital Signs Vital signs: Temp Pulse Resp BP Pulse Ox 98.4 F 107 H 15 97 11/28/18 09:57 11/28/18 09:57 11/28/18 09:57 11/28/18 09:57 Procedures - Immobilization Left ankle Pre-Proc Neuro Vasc Exam: Normal Immobilizer type: Ankle stirrup Performed by: PCT Post-Proc Neuro Vasc Exam: Normal Alignment checked and good: Yes Discharge - Discharge Clinical Impression: Ankle sprain Qualifiers: Encounter type: initial encounter Involved ligament of ankle: unspecified ligament Laterality: left Qualified Code(s): S93.402A - Sprain of unspecified ligament of left ankle, initial encounter Condition: Stable Disposition: HOME, SELF-CARE Additional Instructions: SPRAINED ANKLE: Your sprained ankle results from stretching or tearing of the ligaments which support the ankle. This usually results from twisting the foot inward and under. The ligaments will require time and protection in order to heal properly. Many ankle sprains are quite disabling, and should be taken seriously. The usual treatment for an ankle sprain is cold packs; protection with tape, splints, or wraps; elevation; and staying off the ankle for at least a day. As the ankle improves, you can walk IF it's not painful to bear weight. Sports are best postponed until healing is complete. More serious sprains usually require strengthening exercises after early healing. Your physician has assessed the seriousness of the ligament injury to your ankle. However, the treatment may change, depending on how your ankle progresses. If further exams were recommended, it is important that you follow through. Call the doctor if your foot becomes numb, painful, or severely swollen. ANKLE STIRRUP SPLINT: You are to use an ankle brace called a stirrup splint. This type of brace allows you to place greater stresses on the ankle without risk of re-injury, and is often used for more severe ankle injuries such as avulsion fractures and ligament ruptures. The splint can be worn over a sock or tape. For proper support, wear the splint with a shoe over it. It's important that the splint fit properly. Adjust the heel tension, if needed. If your splint has air bladders, peel back the bottom of each air bladder, then move the Velcro attachment of the heel strap up or down. Air bladder pressure can be adjusted by pulling up the valve at the top, threading the air tube down into the main bladder, then blowing air into the bladder or squeezing it out. The two sides of the stirrup can be moved forward or back on your ankle by changing the attachment of the main straps. If you are unable to use the ankle comfortably in the splint, return for re-evaluation. ICE & ELEVATION: Apply ice packs frequently against the painful area. Many different schedules are recommended, such as "20 minutes on, 20 minutes off" or "one hour ice, two hours rest." If you need to work, you may need to go longer between ice treatments. You should plan to have the area ice packed AT LEAST one-fourth of the time. The ice should be applied over the wrap, tape, or splint, or over a layer of cloth -- not directly against the skin. Some ice bags have a built-in cloth and can be put directly on the skin. Your injured part should be elevated as much as possible over the next 48 hours. Try to keep the injury above the level of the heart. Avoid use of the injured area. Elevation and rest will decrease the swelling. FOLLOW-UP CARE: If you have been referred to a physician for follow-up care, call the physicians office for an appointment as you were instructed or within the next two days. If you experience worsening or a significant change in your symptoms, notify the physician immediately or return to the Emergency Department at any time for re-evaluation. Referrals: SUDHAKAR GRIMES MD [Primary Care Provider] - Follow up as needed
== END 2018-11-28 10:49 | disposition home or self-care (01) ==
LOC: ER 09:53
DX: O9A.219 Injury, poisoning and certain other consequences of external causes complicating pregnancy, unspecified trimester (principal); S93.402A Sprain of unspecified ligament of left ankle, initial encounter; W19.XXXA Unspecified fall, initial encounter; Z3A.00 Weeks of gestation of pregnancy not specified
CPT/HCPCS: 99283; 73610; L4350

== ENCOUNTER → 2018-12-08 | Outpatient (CLI) | payer MEDICAID ==
[2018-12-08 12:07] LABS: APPEARANCE,URINE CLOUDY; BILIRUBIN,URINE NEGATIVE (NEGATIVE); GLUCOSE, URINE NEGATIVE (NEGATIVE); KETONES,URINE NEGATIVE (NEGATIVE); LEUKOCYTE ESTERASE,URINE LARGE (NEGATIVE); NITRITE,URINE NEGATIVE (NEGATIVE); PROTEIN,URINE NEGATIVE (NEGATIVE); URINE SPECIFIC GRAVITY 1.024
[2018-12-08 12:08] LABS: COLOR,URINE YELLOW
[2018-12-08 12:23] LABS: URINE AMPHETAMINES SCREEN NEGATIVE; URINE BARBITURATES SCREEN NEGATIVE; URINE BENZODIAZEPINES SCREEN NEGATIVE; URINE COCAINE SCREEN NEGATIVE; URINE MARIJUANA (THC) SCREEN NEGATIVE; URINE METHADONE SCREEN NEGATIVE; URINE PHENCYCLIDINE SCREEN NEGATIVE
[2018-12-08 12:32] LABS: URINE CREATININE 276.8 mg/dL (16-327); URINE PROTEIN 7.5 mg/dL (<12)
[2018-12-08 12:58] LABS: ABSOLUTE EOSINOPHILS # (AUTO) 0.1 10^3/uL (0.0-0.6); ABSOLUTE LYMPHOCYTES (AUTO) 2.2 10^3/uL (0.5-4.7); ABSOLUTE MONOCYTES (AUTO) 0.6 10^3/uL (0.1-1.4); ABSOLUTE NEUT (AUTO) 6.9 10^3/uL (1.7-8.2); BASOPHILS % (AUTO) 0.2 % (0-2); HEMOGLOBIN 12.5 g/dL (12.0-15.5); LYMPHOCYTES % (AUTO) 22.2 % (13-45); MEAN CORPUSCULAR HEMOGLOBIN 28.9 pg (27.0-33.4); MEAN CORPUSCULAR HGB CONC 34.6 g/dL (32.0-36.0); MEAN CORPUSCULAR VOLUME 84 fl (80-97); MONOCYTES % (AUTO) 5.7 % (3-13); PLATELET COUNT 298 10^3/uL (150-450); RED BLOOD COUNT 4.31 10^6/uL (3.72-5.28); RED CELL DISTRIBUTION WIDTH 13.4 % (11.5-14.0); SEGMENTED NEUTROPHILS % (AUTO) 70.9 % (42-78); TOTAL CELLS COUNTED % (AUTO) 100 %; WHITE BLOOD COUNT 9.7 10^3/uL (4.0-10.5)
[2018-12-08 13:20] LABS: ALANINE AMINOTRANSFERASE 17 U/L (9-52); ALBUMIN 3.3 g/dL (3.5-5.0); ALKALINE PHOSPHATASE 73 U/L (38-126); ANION GAP 7 (5-19); ASPARTATE AMINO TRANSFERASE 12 U/L (14-36); BILIRUBIN,DIRECT 0.2 mg/dL (0.0-0.4); BILIRUBIN,TOTAL 0.8 mg/dL (0.2-1.3); BLOOD UREA NITROGEN 5 mg/dL (7-20); CALCIUM 8.9 mg/dL (8.4-10.2); CARBON DIOXIDE 25 mmol/L (22-30); CHLORIDE 105 mmol/L (98-107); GLUCOSE 78 mg/dL (75-110); POTASSIUM 4.5 mmol/L (3.6-5.0); SODIUM 137.3 mmol/L (137-145); TOTAL PROTEIN 6.1 g/dL (6.3-8.2); URIC ACID 4.6 mg/dL (2.5-6.2)
== END ==
LOC: LC 11:19
PROVIDERS: ATTEND Obstetrics & Gynecology
PROC: 4A1HXCZ Monitoring of Products of Conception, Cardiac Rate, External Approach (ICD-10-PCS; principal; 2018-12-08)
DX: O13.2 Gestational [pregnancy-induced] hypertension without significant proteinuria, second trimester (principal); Z3A.24 24 weeks gestation of pregnancy
CPT/HCPCS: 36415; 80053; 80307; 81001; 82570; 83615; 84156; 84550; 85025

== ENCOUNTER 2018-12-26 10:24 | Outpatient (CLI) | payer MEDICAID ==
[2018-12-26] MEDS ORDERED: BENZOCAINE/MENTHOL AEROSOL SPRAY 56 ML ONE (10:49)
[2018-12-26 11:06] LABS: BACTERIA (WET MOUNT) 4+ BACTERIA SEEN; EPITHELIALS (WET MOUNT) 3+ EPITHELIALS SEEN; RBCS (WET MOUNT) RARE RBCS SEEN; T.VAGINALIS (WET MOUNT) NO TRICHOMONAS SEEN; WBCS (WET MOUNT) 4+ WBCS SEEN; YEAST (WET MOUNT) YEAST SEEN
[2018-12-26 11:22] LABS: URINE AMPHETAMINES SCREEN NEGATIVE; URINE BARBITURATES SCREEN NEGATIVE; URINE BENZODIAZEPINES SCREEN NEGATIVE; URINE COCAINE SCREEN NEGATIVE; URINE MARIJUANA (THC) SCREEN NEGATIVE; URINE METHADONE SCREEN NEGATIVE; URINE PHENCYCLIDINE SCREEN NEGATIVE
[2018-12-26] MEDS ORDERED: FLUCONAZOLE 100 MG TABLET ONE (11:34)
[2018-12-26] MEDS ORDERED: FLUCONAZOLE 100 MG TABLET PO ONE (12:00)
[2018-12-26 12:31] LABS: CHLAM PCR NOT DETECTED (NOT DETECT); GON PCR NOT DETECTED (NOT DETECT)
== END 2018-12-26 11:45 | disposition home or self-care (01) ==
LOC: LC 10:24
PROVIDERS: ATTEND Student in an Organized Health Care Education/Training Program
PROC: 4A1HXCZ Monitoring of Products of Conception, Cardiac Rate, External Approach (ICD-10-PCS; principal; 2018-12-26)
DX: O98.812 Other maternal infectious and parasitic diseases complicating pregnancy, second trimester (principal); B37.3 Candidiasis of vulva and vagina; Z3A.27 27 weeks gestation of pregnancy
CPT/HCPCS: 59025; 87070; 87205; 87210; 80307; 87491; 87591; J3490 ×2

== ENCOUNTER 2019-03-19 05:05 | Inpatient (IN) | payer MEDICAID ==
[2019-03-18 11:04] LABS: ABSOLUTE EOSINOPHILS # (AUTO) 0.1 10^3/uL (0.0-0.6); ABSOLUTE LYMPHOCYTES (AUTO) 2.4 10^3/uL (0.5-4.7); ABSOLUTE MONOCYTES (AUTO) 0.5 10^3/uL (0.1-1.4); ABSOLUTE NEUT (AUTO) 5.8 10^3/uL (1.7-8.2); BASOPHILS % (AUTO) 0.3 % (0-2); EOSINOPHILS % (AUTO) 0.7 % (0-6); HEMATOCRIT 36.6 % (36.0-47.0); HEMOGLOBIN 12.4 g/dL (12.0-15.5); LYMPHOCYTES % (AUTO) 27.6 % (13-45); MEAN CORPUSCULAR HEMOGLOBIN 27.2 pg (27.0-33.4); MEAN CORPUSCULAR HGB CONC 33.9 g/dL (32.0-36.0); MEAN CORPUSCULAR VOLUME 80 fl (80-97); MONOCYTES % (AUTO) 5.6 % (3-13); PLATELET COUNT 303 10^3/uL (150-450); RED BLOOD COUNT 4.57 10^6/uL (3.72-5.28); RED CELL DISTRIBUTION WIDTH 14.3 % (11.5-14.0); SEGMENTED NEUTROPHILS % (AUTO) 65.8 % (42-78); TOTAL CELLS COUNTED % (AUTO) 100 %; WHITE BLOOD COUNT 8.9 10^3/uL (4.0-10.5)
[2019-03-18 11:16] LABS: APPEARANCE,URINE SLIGHTLY-CLOUDY; BILIRUBIN,URINE NEGATIVE (NEGATIVE); COLOR,URINE YELLOW; GLUCOSE, URINE NEGATIVE (NEGATIVE); KETONES,URINE NEGATIVE (NEGATIVE); LEUKOCYTE ESTERASE,URINE MODERATE (NEGATIVE); NITRITE,URINE NEGATIVE (NEGATIVE); PROTEIN,URINE NEGATIVE (NEGATIVE); URINE SPECIFIC GRAVITY 1.021
[2019-03-18 11:33] LABS: URINE AMPHETAMINES SCREEN NEGATIVE; URINE BARBITURATES SCREEN NEGATIVE; URINE BENZODIAZEPINES SCREEN NEGATIVE; URINE COCAINE SCREEN NEGATIVE; URINE MARIJUANA (THC) SCREEN NEGATIVE; URINE METHADONE SCREEN NEGATIVE; URINE PHENCYCLIDINE SCREEN NEGATIVE
[~2019-03-19 05:05] MED LIST: CEFAZOLIN 1 GM/D5W RTU 1 GM/50 ML RTUPB IV PRN; LACTATED RINGERS 1000 ML IV PRN; LIDOCAINE 0.5% INJ-PF (5 MG/ML) 50 ML SDV SUBCUT PRN
[2019-03-19] MEDS ORDERED: OXYTOCIN 10 UNIT/ML VIAL ONE (07:09)
[2019-03-19] MEDS ORDERED: MIDAZOLAM 2 MG/2 ML INJ ONE (07:09)
[2019-03-19] MEDS ORDERED: EPHEDRINE SULFATE INJ 50 MG/1 ML AMPULE ONE (07:09)
[2019-03-19] MEDS ORDERED: ACETAMINOPHEN 1,000 MG/100 ML RTUPB IV ONE (07:09)
[2019-03-19] MEDS ORDERED: FENTANYL CITRATE INJ/PF 100 MCG/2 ML AMPUL ONE ×2 (07:09→10:03)
[2019-03-19] MEDS ORDERED: FENTANYL CITRATE INJ/PF 100 MCG/2 ML AMPUL IV PRN ×2 (08:28)
[2019-03-19] MEDS ORDERED: MEPERIDINE HCL/PF INJ 25 MG/1 ML DISP.SYRIN IV PRN (08:28)
[2019-03-19] MEDS ORDERED: DIPHENHYDRAMINE HCL 50 MG/ML VIAL IV PRN (08:28)
[2019-03-19] MEDS ORDERED: PROMETHAZINE HCL INJ 25 MG/1 ML VIAL IV PRN ×3 (08:28→08:43)
[2019-03-19] MEDS ORDERED: ONDANSETRON HCL INJ/PF 4 MG/2 ML SDV IV PRN (08:28)
[2019-03-19] MEDS ORDERED: MORPHINE SULFATE 10 MG/ML INJ IV PRN ×2 (08:28→08:43)
[2019-03-19] MEDS ORDERED: RINGERS SOLUTION,LACTATED 1,000 ML IV PRN (08:43)
[2019-03-19] MEDS ORDERED: ACETAMINOPHEN 1,000 MG/100 ML RTUPB IV PRN (08:43)
[2019-03-19] MEDS ORDERED: SIMETHICONE 80 MG TAB.CHEW PO PRN (08:43)
[2019-03-19] MEDS ORDERED: MEASLES,MUMPS&RUBELLA VACC/PF 0.5 ML VIAL SUBCUT PRN (08:43)
[2019-03-19] MEDS ORDERED: OXYCODONE-ACETAMINOPHEN 5-325 MG TABLET PO PRN (08:43)
[2019-03-19] MEDS ORDERED: OXYTOCIN/NORMAL SALINE 20 UNIT/1,000 ML RTUINJ IV PRN (08:43)
[2019-03-19] MEDS ORDERED: DIPH/PERTUSS(ACELL)/TETANUS VAC/PF 0.5 ML SYR (>=10YO) IM PRN (08:43)
[2019-03-19] MEDS: FENTANYL CITRATE INJ/PF 100 MCG/2 ML AMPUL IV PRN ×2 (10:06→10:42)
[2019-03-19] MEDS ORDERED: PRENATAL VITAMIN W DHA CAPSULE PO ONE (10:43)
[2019-03-19] MEDS ORDERED: DOCUSATE SODIUM 100 MG CAPSULE ONE (10:43)
[2019-03-19] MEDS: DOCUSATE SODIUM 100 MG CAPSULE PO SCH ×2 (10:44→18:21)
[2019-03-19] MEDS: PRENATAL VITAMIN W DHA CAPSULE PO SCH (10:44)
[2019-03-19] MEDS ORDERED: KETOROLAC TROMETHAMINE INJ/PF 30 MG/1 ML SDV IV SCH (11:00)
[2019-03-19] MEDS ORDERED: PHENYLEPHRINE HCL INJ/PF 10 MG/1 ML SDV ONE (11:36)
[2019-03-19] MEDS ORDERED: KETOROLAC TROMETHAMINE 60 MG/2 ML SDV ONE (11:36)
[2019-03-19] MEDS ORDERED: ONDANSETRON HCL INJ/PF 4 MG/2 ML SDV ONE (11:36)
[2019-03-19] MEDS ORDERED: LIDOCAINE 2% INJ-PF (20 MG/ML) 2 ML AMPUL ONE (11:36)
[2019-03-19] MEDS ORDERED: DEXAMETHASONE SOD PHOSPHATE INJ 4 MG/1 ML VIAL ONE (11:36)
[2019-03-19] MEDS ORDERED: METOCLOPRAMIDE HCL INJ/PF 10 MG/2 ML SDV ONE (11:36)
--- NOTE | 2019-03-19 12:10 | OPERATIVE REPORT E ---
Operative Report NAME: NANNETTE CHAN : 1995 AGE: 24Y DATE OF SURGERY: 03/19/2019 ROOM: 228 PREOPERATIVE DIAGNOSIS: PREVIOUS , DESIRES REPEAT. POSTOPERATIVE DIAGNOSIS: PREVIOUS , DESIRES REPEAT. OPERATION: Repeat low transverse hysterotomy section. SURGEON: TREY BOOTH M.D. HIGH SCHOOL FOOTBALL COACH: Rosamaria Donaldson, child life assistant salesperson surgical appliances. ANESTHESIOLOGIST: Dr. Anton with spinal FINDINGS: Male in cephalic presentation with Apgars 8-9. COMPLICATIONS: None. ESTIMATED BLOOD LOSS: 700 mL SPECIMENS REMOVED: None. PROCEDURE: The patient was taken to the operating room, prepared and draped in normal sinus rhythm in supine position with a leftward tilt. Transverse skin incision was made with a scalpel and carried through to the underlying layer of fascia with the same scalpel. The fascia was excised in the midline and extended laterally with Lucinda. The fascia was dissected from the rectus muscles sharply with Mayos, and the rectus muscle was divided sharply again with Mayos and Bovie as needed. Good visualization of the bladder and the uterus was obtained, and the bladder blade was inserted. The hysterotomy was nicked with a scalpel and extended laterally with surgeon finger fracture. The was then delivered atraumatically. The nose and mouth were suctioned with a suction bulb and the cord was clamped and cut and the infant was handed off to awaiting post doctoral fellow. Cord blood was collected. The placenta was removed manually. The uterus was exteriorized and cleared of clots and debris. The hysterotomy was closed with 0 Monocryl in a running locked fashion. The second layer of the same suture was used to imbricate to ensure hemostasis. The uterus was returned to the abdomen and peritoneal cavity was cleared of clots and debris. The rectus muscle and peritoneum were reapproximated with a mattress suture of 2-0 Chromic. The fascia was closed with 0 Vicryl. The subcutaneous layer was closed with plain catgut, and the skin was closed with 4-0 Vicryl. The patient tolerated the procedure well. Sponge, lap, and needle counts were correct x2, and the patient was taken to recovery in stable condition. DICTATING PHYSICIAN: TREY BOOTH M.D. [id number] PHY#: [id number] ID: [id number] JOB#: [id number] ACCT: [id number] cc:TREY BOOTH M.D. >
[2019-03-19] MEDS: OXYCODONE-ACETAMINOPHEN 5-325 MG TABLET PO PRN ×2 (12:16→18:50)
[2019-03-19] MEDS: KETOROLAC TROMETHAMINE INJ/PF 30 MG/1 ML SDV IV SCH ×2 (15:45→21:12)
[2019-03-20] MEDS: IBUPROFEN 800 MG TABLET PO SCH ×4 (05:11→23:40)
[2019-03-20 06:26] LABS: HEMOGLOBIN 11.9 g/dL (12.0-15.5); MEAN CORPUSCULAR HEMOGLOBIN 26.9 pg (27.0-33.4); MEAN CORPUSCULAR VOLUME 82 fl (80-97); PLATELET COUNT 272 10^3/uL (150-450); RED BLOOD COUNT 4.42 10^6/uL (3.72-5.28); RED CELL DISTRIBUTION WIDTH 14.4 % (11.5-14.0); WHITE BLOOD COUNT 12.8 10^3/uL (4.0-10.5)
[2019-03-20] MEDS ORDERED: IBUPROFEN 800 MG TABLET PO SCH ×2 (09:00→12:00)
[2019-03-20] MEDS: DOCUSATE SODIUM 100 MG CAPSULE PO SCH ×2 (09:26→18:02)
[2019-03-20] MEDS: PRENATAL VITAMIN W DHA CAPSULE PO SCH (09:26)
[2019-03-20] MEDS: ACETAMINOPHEN 325 MG TABLET PO PRN ×2 (09:26→20:50)
--- NOTE | 2019-03-20 10:26 | PDOC PROGRESS REPORT ---
Subjective-OB Progress Note for:: 03/20/19 Subjective: reports bleeding slowing, pain controlled with current meds, + passing gas, denies needs Physical Exam (OB) Vital Signs: Temp Pulse Resp BP Pulse Ox 98.1 F 77 18 119/69 97 03/20/19 07:50 03/20/19 07:50 03/20/19 07:50 03/20/19 07:50 03/20/19 07:50 Intake & Output 03/19/19 03/20/19 03/21/19 06:59 06:59 06:59 Intake Total 920 Output Total 1875 Balance -955 Weight 266 kg - Incision: Well Approximated Closure Type: Oppsite dr - Abdomen Description: Tender Hernia Present: No Fundal Description: Firm, Midline Fundal Height: u/u - u/2 - Abdominal Inspection: Normal Distension: No distension - Extremities Lower extremities: Junior's sign - neg Ankle: Normal, Nontender Objective-Diagnostic Laboratory: 03/20/19 06:02 03/20/19 06:02 WBC 12.8 H RBC 4.42 Hgb 11.9 L Hct 36.0 MCV 82 MCH 26.9 L MCHC 33.0 RDW 14.4 H Plt Count 272 Assessment and Plan(PN) - Assessment and Plan (1) Delivery by elective caesarean section Is this a current diagnosis for this admission?: Yes - Time Spent with Patient Time with patient: Less than 15 minutes Medications reviewed and adjusted accordingly: Yes - Disposition Anticipated Discharge: Home Within: within 48 hours
[2019-03-21] MEDS: IBUPROFEN 800 MG TABLET PO SCH (06:39)
[2019-03-21] MEDS: DOCUSATE SODIUM 100 MG CAPSULE PO SCH (09:53)
[2019-03-21] MEDS: PRENATAL VITAMIN W DHA CAPSULE PO SCH (09:53)
--- NOTE | 2019-03-21 10:15 | PDOC DISCHARGE SUMMARY ---
Final Diagnosis Discharge Date: 03/21/19 - Final Diagnosis (1) Delivery by elective caesarean section Is this a current diagnosis for this admission?: Yes Discharge Data - Discharge Medication Prescriptions: Ibuprofen [Motrin 800 mg Tablet] 800 mg PO Q8HP PRN #90 tablet PRN Reason: Oxycodone HCl/Acetaminophen [Percocet 5-325 mg Tablet] 1 tab PO Q4HP PRN #30 tablet PRN Reason: Home Medications: Vits96/Iron Fum/Folic [ Tablet] 1 each PO DAILY 12/08/18 Ibuprofen [Motrin 800 mg Tablet] 800 mg PO Q8HP PRN #90 tablet 03/21/19 Oxycodone HCl/Acetaminophen [Percocet 5-325 mg Tablet] 1 tab PO Q4HP PRN #30 tablet 03/21/19 Procedures: NST Intrapartum Procedure(s): : Low Cervical, Transverse - Diagnosis Test Laboratory: Temp Pulse Resp BP Pulse Ox 97.8 F 88 18 118/77 98 03/21/19 07:57 03/21/19 07:57 03/21/19 07:57 03/21/19 07:57 03/21/19 07:57 03/18/19 03/18/19 03/20/19 09:55 10:00 06:02 RBC 4.57 4.42 Hgb 12.4 11.9 L Hct 36.6 36.0 Urine Opiates Screen NEGATIVE - Discharge information/Instructions Discharge Activity: Balance Activity w/Rest, No Lifting Over 10 Pounds, No Lifting/Push/Pulling, Pelvic Rest, No tub bath Discharge Diet: Regular Disposition: HOME WITH HOSPICE Follow up with: [facility] in: 1, Weeks
[2019-03-21 10:21] VITALS: BP 117/72
--- NOTE | 2019-04-06 11:28 | PDOC DELIVERY SUMMARY ---
Delivery Summary - Maternal Hx : II Hx Para: I Hx # Pregnancies: 1 CORY: 03/25/19 Gestational Age: 39+1 Ruptured Membranes: AROM Fluids: Clear - Delivery Presentation: Vertex Heart Rate Monitoring: Done Pre-Operatively Support Person Present: Yes Location: OR : Scheduled Placenta: Within Normal Limits Delivery of Placenta Date: 03/19/19 Delivery of Placenta Time: 08:08 - Medications Type of Anesthesia:: Spinal - Assess and Care Baby 1 Male Delivery of Date: 03/19/19 Delivery of Time: 08:09 at 1 minute: 9 at 5 minutes: 9 Preprinted Number On Band: [id number] Skin to Skin: No Skin to Skin (Mins): 0 To Nursery At: 08:17 Mode of Transport: Bassinet Infant Delivery Weight: 3,745 Delivery Length: 20.5 in - Delivery Personnel Carpenter Packing: JUAN ARRIOLA Nursery RN: YANE GONZALEZ RN: FREDI DEL ROSARIO MD: TREY BOOTH
== END 2019-03-21 12:00 | disposition hospice, home (50) | DRG 788 ==
LOC: 2S 05:05
PROVIDERS: ADMIT Obstetrics & Gynecology; ATTEND Obstetrics & Gynecology
PROC: 10D00Z1 Extraction of Products of Conception, Low, Open Approach (ICD-10-PCS; principal; 2019-03-19 07:45)
PROC: 3E0234Z Introduction of Serum, Toxoid and Vaccine into Muscle, Percutaneous Approach (ICD-10-PCS; 2019-03-21)
DX: O34.211 Maternal care for low transverse scar from previous cesarean delivery (principal); O99.214 Obesity complicating childbirth; E66.9 Obesity, unspecified; Z37.0 Single live birth; Z23 Encounter for immunization; Z3A.39 39 weeks gestation of pregnancy
CPT/HCPCS: 1961; 36415; 59025; 80307; 81001; 85025; 85027; 86850; 86900; 86901; 90707; 94799; J0131; J1100; J1885; J2250; J2370; J2405; J2590; J2765; J3010; J3490; J7120

== ENCOUNTER 2019-11-07 15:31 | Emergency (ER) | payer MEDICAID, OTHER ==
[2019-11-07 15:57] VITALS: BP 136/93
--- NOTE | 2019-11-07 16:10 | ER Document Report ---
HPI - HPI Time Seen by Provider: 11/07/19 16:02 Notes: Patient is a 24-year-old female who presents to the ED complaining of nasal congestion/discharge, dry nonproductive cough, fever, body ache 1 days. Patient states that she is still eating and drinking without difficulties, but does have a decreased p.o. intake. She is still urinating normally having normal bowel movements. Patient has been using some [id number] meds for symptoms. She denies any significant past medical history including cardiopulmonary history and immunocompromised conditions. Patient denies any smoking or IV drug use. Denies any current headache, neck pain, sore throat, chest pain, palpitations, syncope, shortness of breath, wheeze, dyspnea, abdominal pain, nausea/vomiting/diarrhea, urinary retention, dysuria, hematuria, or rash. - ROS Systems Reviewed and Negative: Yes All other systems reviewed and negative - REPRODUCTIVE Reproductive: REPORTS: : Past Medical History - Social History Smoking Status: Never Smoker Family History: Reviewed & Not Pertinent - Past Medical History Cardiac Medical History: Reports: Hx Hypertension - 1st Denies: Hx Heart Murmur Pulmonary Medical History: Reports: Hx Bronchitis, Hx Pneumonia Renal/ Medical History: Denies: Hx Kidney Stones, Hx Peritoneal Dialysis GI Medical History: Reports: Hx Gastroesophageal Reflux Disease - With . Denies: Hx Hiatal Hernia, Hx Ulcer Past Surgical History: Reports: Hx Section, Hx Cholecystectomy - Immunizations Hx Diphtheria, Pertussis, Tetanus Vaccination: Yes Vertical Provider Document - CONSTITUTIONAL Agree With Documented VS: No - HR 100 Notes: PHYSICAL EXAMINATION: GENERAL: Well-appearing, well-nourished and in no acute distress. A&Ox4. Answers questions appropriately. Moves comfortably w/o notable distress HEAD: Atraumatic, normocephalic. EYES: Pupils equal round and reactive to light, extraocular movements intact, sclera anicteric, conjunctiva are normal. ENT: EAC clear b/l. TM's intact b/l without erythema, fluid, or perforation. Nares patent and with clear discharge. oropharynx no erythema without exudates. No tonsilar hypertrophy without erythema or exudate. No palatine shift. Uvula midline. No tongue protrusion. No drooling, hoarseness, or airway compromise. Moist mucous membranes. No sinus tenderness. NECK: Normal range of motion, supple without lymphadenopathy. No rigidity/meningismus. LUNGS: Breath sounds clear to auscultation bilaterally and equal. No wheezes rales or rhonchi. No retractions HEART: Regular rate and rhythm without murmurs, rubs, gallops. ABDOMEN: Soft, nontender, nondistended abdomen. No guarding, no rebound. Normal bowel sounds present. No CVA tenderness bilaterally. NEUROLOGICAL: Normal speech, normal gait. PSYCH: Normal mood, normal affect. SKIN: Warm, Dry, normal turgor, no rashes or lesions noted. - INFECTION CONTROL TRAVEL OUTSIDE OF THE [place] IN LAST 30 DAYS: No Course - Re-evaluation Re-evalutation: 11/07/19 16:08 Patient is an afebrile, well-hydrated, 24-year-old female who presents to the ED with acute URI, suspect influenza. Vitals are acceptable. PE is otherwise unremarkable. No labs or imaging warranted at this time based on H&P. Patient has no significant cardiopulmonary or immunocompromised medical conditions. Patient's lungs are clear to auscultation bilaterally without tachycardia, hypoxia, or tachypnea. Patient is tolerating p.o. without any difficulties. Thoroughly reviewed the risks, benefits, potential side effects, estimated cost without insurance with patient. After thorough review, patient declined Tamiflu at this time. Low suspicion for any meningitis, sepsis, peritonsillar/pharyngeal abscess, respiratory compromise, severe dehydration, or other emergent systemic condition at this time. Patient is aware this condition can change from initial presentation and she needs to monitor symptoms closely. Conservative measures otherwise for symptoms. Recheck with your PCM in 3-5 days. Return to the ED with any worsening/concerning symptoms otherwise as reviewed in discharge. Patient is in agreement. - Vital Signs Vital signs: Temp Pulse Resp BP Pulse Ox 99.0 F 123 H 18 136/93 H 98 11/07/19 15:56 11/07/19 15:56 11/07/19 15:56 11/07/19 15:56 11/07/19 15:56 Discharge - Discharge Clinical Impression: Acute URI Condition: Stable Disposition: HOME, SELF-CARE Instructions: Upper Respiratory Illness ([facility]) Additional Instructions: Maintain adequate fluid intake tylenol/ibuprofen as needed alternating every 3 hours for fever/body ache over the counter cold medication as needed for symptoms Humidified air may help Wash your hands regularly Wear a mask when coughing F/u: with your PCM in 3-5 days for a recheck Return to the ED with any fever, altered mental status/behavior, chest pain, palpitations, syncope, headache, neck pain/stiffness, shortness of breath, chest pains, wheezing, drooling, trouble swallowing/breathing, abdominal pain, n/v/d, rash, or worsening/concerning symptoms otherwise. Forms: Elevated Blood Pressure Referrals: SUDHAKAR GRIMES MD [Primary Care Provider] - Follow up as needed
== END 2019-11-07 16:21 | disposition home or self-care (01) ==
LOC: ER 15:31
DX: J06.9 Acute upper respiratory infection, unspecified (principal); Z90.49 Acquired absence of other specified parts of digestive tract
CPT/HCPCS: 99283

== ENCOUNTER 2020-05-16 09:41 | Emergency (ER) | payer MEDICAID, OTHER ==
[2020-05-16 10:05] VITALS: BP 131/83
--- NOTE | 2020-05-16 12:24 | ER Document Report ---
ED ENT - General Chief Complaint: Sore Throat Stated Complaint: COUGH,SORE THROAT Time Seen by Provider: 05/16/20 11:19 Notes: 25-year-old male presenting today with sore throat and cough for 1 to 2 days. States that she has postnasal drip. States she has history of allergies. Has tried Flonase and Maureen with minimal to no relief of her symptoms. States she has had a productive cough. Denies any fevers, chills at home. No nausea vom iting or diarrhea. TRAVEL OUTSIDE OF THE [place] IN LAST 30 DAYS: No - Related Data Allergies/Adverse Reactions: No Known Allergies Allergy (Verified 11/07/19 16:02) Home Medications: flonase, maureen Past Medical History - Social History Smoking Status: Never Smoker Family History: Reviewed & Not Pertinent - Past Medical History Cardiac Medical History: Reports: Hx Hypertension - 1st Denies: Hx Heart Murmur Pulmonary Medical History: Reports: Hx Bronchitis, Hx Pneumonia Renal/ Medical History: Denies: Hx Kidney Stones, Hx Peritoneal Dialysis GI Medical History: Reports: Hx Gastroesophageal Reflux Disease - With . Denies: Hx Hiatal Hernia, Hx Ulcer Past Surgical History: Reports: Hx Section, Hx Cholecystectomy - Immunizations Hx Diphtheria, Pertussis, Tetanus Vaccination: Yes Physical Exam - Vital signs Vitals: Temp Pulse Resp BP Pulse Ox 98.9 F 105 H 16 131/83 H 98 05/16/20 10:02 05/16/20 10:05/16/20 10:05/16/20 10:05/16/20 10:02 Course - Re-evaluation Re-evalutation: 05/16/20 19:16 I discussed with patient that she can trial Sudafed to help clear up her symptoms. Continue taking the Flonase and the Maureen. I am pending the results of her x-ray and labs. I was notified by the nursing staff that patient left AMA. I was unable to go speak with the patient as she had left prior to me being able to reevaluate and discuss with her the reasoning for labs and imaging and the importance of staying to have these performed. - Vital Signs Vital signs: Temp Pulse Resp BP Pulse Ox 98.9 F 105 H 16 131/83 H 98 05/16/20 10:02 05/16/20 10:02 05/16/20 10:02 05/16/20 10:02 05/16/20 10:02 Discharge - Discharge Clinical Impression: Congestion of nasal sinus, Cough Condition: Stable Disposition: AGAINST MEDICAL ADVICE
--- NOTE | 2020-05-16 13:40 | RADIOLOGY REPORT (SQ) ---
EXAM DESCRIPTION: CHEST SINGLE VIEW IMAGES COMPLETED DATE/TIME: 05/16/2020 12:56 pm REASON FOR STUDY: cough COMPARISON: 10/07/2016 EXAM PARAMETERS: NUMBER OF VIEWS: One view. TECHNIQUE: Single frontal radiographic view of the chest acquired. RADIATION DOSE: NA LIMITATIONS: None. FINDINGS: LUNGS AND PLEURA: No opacities, masses or pneumothorax. No pleural effusion. MEDIASTINUM AND HILAR STRUCTURES: Mild prominence of the right paratracheal region may be related to patient positioning. HEART AND VASCULAR STRUCTURES: Heart normal in size. Normal vasculature. BONES: No acute findings. HARDWARE: None in the chest. OTHER: No other significant finding. IMPRESSION: 1. NO ACUTE RADIOGRAPHIC FINDING IN THE CHEST. TECHNICAL DOCUMENTATION: JOB ID: [id number] 2010 [employer]- All Rights Reserved Reading location - IP/workstation name: [email or web address]
== END 2020-05-16 12:51 | disposition left against medical advice (07) ==
LOC: ER 09:41
DX: R05 Cough (principal); R09.81 Nasal congestion; R09.82 Postnasal drip; J02.9 Acute pharyngitis, unspecified; Z79.899 Other long term (current) drug therapy; Z53.29 Procedure and treatment not carried out because of patient's decision for other reasons
CPT/HCPCS: 71045; 87070; 87880; 99281